=== PATIENT | male | born 1975 | race Asian ===

== ENCOUNTER 2019-05-16 02:01 | Emergency (ER) | payer SELFPAY | END 2019-05-16 02:54 | disposition left against medical advice (07) | LOC: ER 02:07 | DX: M79.89 Other specified soft tissue disorders (principal); Z53.21 Procedure and treatment not carried out due to patient leaving prior to being seen by health care provider ==

== ENCOUNTER 2023-02-28 05:26 | Inpatient (IN) | payer MEDICAID, OTHER ==
[~2023-02-28] VITALS: Ht 185.4 cm; Wt 96.5 kg
[2023-02-28] MEDS ORDERED: SODIUM CHLORIDE 0.9% 500 ML IV STA (05:40)
[2023-02-28] MEDS ORDERED: SODIUM CHLORIDE 0.9% 500 ML IV ONE (05:45)
[2023-02-28 06:05] VITALS: PULSE 120; RESP 30; O2SAT 95
[2023-02-28] MEDS ORDERED: ONDANSETRON HCL 4 MG/2 ML VIAL IV ONE (06:15)
[2023-02-28] MEDS ORDERED: MORPHINE SULFATE INJ 2 MG/ml SYRG IV ONE ×2 (06:15→11:45)
[2023-02-28 06:26] LABS: Basophils # (auto) 0 10 ^3/uL (0-0.2); Basophils % (auto) 0.2 % (0.0-2.0); Eosinophils # (auto) 0.1 10 ^3/uL (0-0.8); Eosinophils % (auto) 0.6 % (0.0-7.0); Hematocrit 38.9 % (41.0-53.0); Hemoglobin 13.1 g/dL (13.5-17.5); Lymphocytes # (auto) 1.5 10 ^3/uL (0.4-5.4); Lymphocytes % (auto) 12.2 % (10.0-50.0); Mean Corpuscular Hemoglobin 31.3 pg (28.0-32.0); Mean Corpuscular Hgb Conc. 33.6 g/dL (32.0-36.0); Mean Corpuscular Volume 93.2 fL (80.0-100.0); Monocytes # (auto) 0.6 10 ^3/uL (0-1.3); Neutrophils # (auto) 10.2 10 ^3/uL (1.6-8.6); Red Blood Cells 4.17 10^6/uL (4.5-5.90); Red Cell Distribution Width 12.6 % (11.8-14.3); White Blood Cell 12.4 10^3/uL (4.4-10.8)
[2023-02-28 06:37] LABS: INR 0.96 (0.9-1.15); Partial Thromboplastin Time 33.3 SEC (24.5-34.5); Prothrombin Time 10.1 sec (9.3-11.8)
[2023-02-28 06:45] LABS: Albumin 2.9 g/dL (3.4-5.0); Calcium 8.2 mg/dL (8.5-10.1); Magnesium 2.2 mg/dL (1.6-2.6); Potassium 4.4 mmol/L (3.5-5.1)
[2023-02-28 06:47] LABS: BUN/Creatinine Ratio 16.4 (10.0-20.0); Bilirubin, Total 0.4 mg/dL (0.2-1.0); Total Protein 7.1 g/dL (6.4-8.2)
[2023-02-28 07:30] VITALS: PULSE 116; RESP 21; O2SAT 99
[2023-02-28] MEDS ORDERED: ASPirin 81 mg TAB PO ONE (07:30)
[2023-02-28] MEDS ORDERED: SODIUM CHLORIDE 0.9% 1,000 ML IV ONE ×2 (07:30→09:15)
[2023-02-28] MEDS ORDERED: diphenhdrAMINE HCL 50 MG/1 ML VL IV ONE (08:00)
[2023-02-28] MEDS ORDERED: KETOROLAC TROMETH 30 MG/ML 1ML VIAL IV ONE (08:00)
[2023-02-28] MEDS ORDERED: IOHEXOL 350 MG/ML 100ML IJ ONE (08:04)
[2023-02-28 08:18] LABS: Urine Bacteria NONE SEEN /hpf (None Seen); Urine Blood TRACE /uL (Negative); Urine Clarity Clear (Clear); Urine Protein, UAD 2+ (Negative); Urine Specific Gravity 1.031 (1.001-1.035); Urine Urobilinogen Normal (Negative); Urine WBC 1 /hpf (0 - 3); Urine pH 5.5 (5.0-8.0)
[2023-02-28 08:20] LABS: Urine Color Yellow (Yellow)
[2023-02-28] MEDS ORDERED: PIPERACILLIN-TAZOB 3.375GM 100 ML IV ONE (09:15)
[2023-02-28] MEDS ORDERED: VANCOMYCIN 1GM/250ML 250 ML IV ONE (10:15)
[2023-02-28] MEDS ORDERED: InsuLIN REG 1unit/0.01ml Soln (100units/ml) IV ONE (11:30)
[2023-02-28 11:45] VITALS: PULSE 109; RESP 23; O2SAT 100
[2023-02-28 12:08] LABS: Base Excess -4.7 mmol/L (-2.0-2.0)
[2023-02-28] MEDS ORDERED: DEXTROSE (50%) 50ML SYRG IV PRN (13:45)
[2023-02-28] MEDS: SODIUM CHLORIDE 0.9% 1,000 ML IV SCH ×2 (13:45→23:31)
[2023-02-28] MEDS ORDERED: SODIUM CHLORIDE 0.9% 2,000 ML IV ONE (13:45)
[2023-02-28] MEDS ORDERED: VANCOMYCIN PER PHARMACY 0 MG IV SCH (13:45)
[2023-02-28 14:19] VITALS: BP 125/74; PULSE 65; RESP 18; TEMP 100.5; O2SAT 100
[2023-02-28 15:03] LABS: Sodium Urine 52 mmol/L (40-220)
[2023-02-28 15:06] LABS: Creatinine, Urine 77 mg/dL (30.0-125.0)
[2023-02-28] MEDS: InsuLIN REG 1unit/0.01ml Soln (100units/ml) SC SCH ×2 (17:18→22:33)
[2023-02-28] MEDS: ACCU-CHEK COMFORT CURVE STRIP VI SCH ×2 (17:20→22:28)
[2023-02-28] MEDS: HYDROmorphone HCL 2 MG/ML VL/or syr IV PRN ×2 (17:47→22:21)
[2023-02-28] MEDS: ONDANSETRON HCL 4 MG/2 ML VIAL IV PRN ×2 (17:47→22:19)
[2023-02-28 19:30] VITALS: PULSE 117; RESP 20; O2SAT 99
[2023-02-28 20:19] LABS: COVID19 ANTIGEN SOFIA FIA NEGATIVE (NEGATIVE)
[2023-02-28] MEDS: VANCOMYCIN 1GM/250ML 250 ML IV SCH (20:23)
[2023-02-28 23:55] VITALS: O2SAT 98
[2023-03-01] MEDS: ONDANSETRON HCL 4 MG/2 ML VIAL IV PRN ×3 (03:29→14:53)
[2023-03-01] MEDS: HYDROmorphone HCL 2 MG/ML VL/or syr IV PRN ×5 (03:29→22:24)
[2023-03-01 06:22] LABS: Basophils # (auto) 0 10 ^3/uL (0-0.2); Basophils % (auto) 0.2 % (0.0-2.0); Eosinophils # (auto) 0 10 ^3/uL (0-0.8); Hematocrit 35.3 % (41.0-53.0); Hemoglobin 11.7 g/dL (13.5-17.5); Lymphocytes # (auto) 1.1 10 ^3/uL (0.4-5.4); Lymphocytes % (auto) 5.9 % (10.0-50.0); Mean Corpuscular Hemoglobin 30.9 pg (28.0-32.0); Mean Corpuscular Hgb Conc. 33.2 g/dL (32.0-36.0); Monocytes # (auto) 1.3 10 ^3/uL (0-1.3); Monocytes % (auto) 7.1 % (0.0-12.0); Neutrophils # (auto) 16.1 10 ^3/uL (1.6-8.6); Neutrophils % (auto) 86.8 % (37.0-80.0); Red Cell Distribution Width 12.6 % (11.8-14.3); White Blood Cell 18.6 10^3/uL (4.4-10.8)
[2023-03-01 06:25] LABS: Potassium 4.3 mmol/L (3.5-5.1)
[2023-03-01] MEDS: SODIUM CHLORIDE 0.9% 1,000 ML IV SCH ×3 (06:25→22:23)
[2023-03-01] MEDS: VANCOMYCIN 1GM/250ML 250 ML IV SCH ×2 (06:25→16:47)
[2023-03-01 06:38] LABS: Albumin 2.5 g/dL (3.4-5.0); BUN/Creatinine Ratio 22.3 (10.0-20.0); Bilirubin, Total 0.7 mg/dL (0.2-1.0); Calcium 7.8 mg/dL (8.5-10.1); Total Protein 6.4 g/dL (6.4-8.2)
[2023-03-01] MEDS: ACCU-CHEK COMFORT CURVE STRIP VI SCH ×4 (06:54→22:23)
[2023-03-01] MEDS: InsuLIN REG 1unit/0.01ml Soln (100units/ml) SC SCH ×4 (06:58→22:53)
[2023-03-01 08:16] VITALS: PULSE 108; RESP 21; O2SAT 96
[2023-03-01] MEDS: levoFLOXacin 500MG 100 ML IV SCH (09:46)
[2023-03-01] MEDS: PANTOPRAZOLE 40 MG/10 ML VIAL INJ IV SCH (09:46)
[2023-03-01] MEDS: ENOXAPARIN SOD 40 MG/0.4 ML SYRINGE SC SCH (09:46)
[2023-03-01 18:51] VITALS: O2SAT 97
[2023-03-01 19:25] VITALS: PULSE 118; RESP 25; O2SAT 98
[2023-03-01 21:10] VITALS: BP 141/83; PULSE 120; RESP 21; RESP 22; TEMP 98.4; O2SAT 96
[2023-03-01 22:00] VITALS: BP 141/83; PULSE 120; RESP 22; TEMP 98.4; O2SAT 96
[2023-03-02] MEDS: VANCOMYCIN 1GM/250ML 250 ML IV SCH ×3 (02:47→22:00)
[2023-03-02 05:00] VITALS: BP 144/73; PULSE 109; RESP 20; TEMP 98.6; O2SAT 97
[2023-03-02] MEDS: HYDROmorphone HCL 2 MG/ML VL/or syr IV PRN ×4 (06:26→23:36)
[2023-03-02] MEDS: ACCU-CHEK COMFORT CURVE STRIP VI SCH ×4 (06:39→22:15)
[2023-03-02] MEDS: SODIUM CHLORIDE 0.9% 1,000 ML IV SCH ×2 (06:53→16:03)
[2023-03-02] MEDS: InsuLIN REG 1unit/0.01ml Soln (100units/ml) SC SCH ×4 (06:58→22:00)
[2023-03-02 07:06] LABS: Basophils # (auto) 0 10 ^3/uL (0-0.2); Basophils % (auto) 0.2 % (0.0-2.0); Eosinophils # (auto) 0 10 ^3/uL (0-0.8); Eosinophils % (auto) 0.2 % (0.0-7.0); Hematocrit 34.3 % (41.0-53.0); Hemoglobin 11.4 g/dL (13.5-17.5); Lymphocytes # (auto) 0.8 10 ^3/uL (0.4-5.4); Lymphocytes % (auto) 4.3 % (10.0-50.0); Mean Corpuscular Hemoglobin 30.7 pg (28.0-32.0); Mean Corpuscular Hgb Conc. 33.3 g/dL (32.0-36.0); Mean Corpuscular Volume 92.2 fL (80.0-100.0); Monocytes # (auto) 1.1 10 ^3/uL (0-1.3); Monocytes % (auto) 6.1 % (0.0-12.0); Neutrophils # (auto) 16.7 10 ^3/uL (1.6-8.6); Neutrophils % (auto) 89.2 % (37.0-80.0); Nucleated Red Blood Cells % 0.1 %; Red Blood Cells 3.72 10^6/uL (4.5-5.90); Red Cell Distribution Width 12.7 % (11.8-14.3); White Blood Cell 18.8 10^3/uL (4.4-10.8)
[2023-03-02 07:36] LABS: Potassium 3.9 mmol/L (3.5-5.1)
[2023-03-02 07:42] LABS: BUN/Creatinine Ratio 24.1 (10.0-20.0); Calcium 8.4 mg/dL (8.5-10.1)
[2023-03-02 08:00] VITALS: BP 137/72; PULSE 107; RESP 19; TEMP 98.8; O2SAT 95
[2023-03-02] MEDS: levoFLOXacin 500MG 100 ML IV SCH (09:10)
[2023-03-02] MEDS: PANTOPRAZOLE 40 MG/10 ML VIAL INJ IV SCH (09:15)
[2023-03-02] MEDS: ENOXAPARIN SOD 40 MG/0.4 ML SYRINGE SC SCH (09:17)
[2023-03-02] MEDS ORDERED: AMPICILLIN & SULBACTAM SODIUM 3 GM in SODIUM CHL 0.9% 100 ML IV STA (11:50)
[2023-03-02 12:00] VITALS: BP 140/65; PULSE 109; RESP 22; TEMP 98.5; O2SAT 96
[2023-03-02] MEDS: AMPICILLIN & SULBACTAM SODIUM 3 GM in SODIUM CHL 0.9% 100 ML IV SCH ×2 (15:58→20:00)
[2023-03-02 16:00] VITALS: BP 94/76; PULSE 112; RESP 21; TEMP 99.2; O2SAT 95
[2023-03-02 20:00] VITALS: BP 146/80; PULSE 115; PULSE 116; RESP 21; TEMP 98.8; O2SAT 94
[2023-03-02 22:00] VITALS: BP 139/67; PULSE 122; RESP 18; TEMP 99; O2SAT 94
[2023-03-03] VITALS (8 sets, daily range): BP systolic 123–167; BP diastolic 76–84; PULSE 97–116; RESP 16–24; TEMP 98.2–99.5; O2SAT 92–98
[2023-03-03] MEDS: AMPICILLIN & SULBACTAM SODIUM 3 GM in SODIUM CHL 0.9% 100 ML IV SCH ×4 (01:45→21:19)
[2023-03-03] MEDS: SODIUM CHLORIDE 0.9% 1,000 ML IV SCH ×3 (01:45→13:38)
[2023-03-03] MEDS: HYDROmorphone HCL 2 MG/ML VL/or syr IV PRN ×4 (03:56→22:47)
[2023-03-03 06:01] LABS: Basophils # (auto) 0 10 ^3/uL (0-0.2); Basophils % (auto) 0.2 % (0.0-2.0); Eosinophils # (auto) 0 10 ^3/uL (0-0.8); Eosinophils % (auto) 0.1 % (0.0-7.0); Hematocrit 33.8 % (41.0-53.0); Hemoglobin 11.3 g/dL (13.5-17.5); Lymphocytes # (auto) 0.7 10 ^3/uL (0.4-5.4); Lymphocytes % (auto) 3.7 % (10.0-50.0); Mean Corpuscular Hemoglobin 30.6 pg (28.0-32.0); Mean Corpuscular Hgb Conc. 33.5 g/dL (32.0-36.0); Mean Corpuscular Volume 91.6 fL (80.0-100.0); Monocytes # (auto) 1.2 10 ^3/uL (0-1.3); Monocytes % (auto) 6.5 % (0.0-12.0); Neutrophils # (auto) 16.1 10 ^3/uL (1.6-8.6); Neutrophils % (auto) 89.5 % (37.0-80.0); Red Blood Cells 3.69 10^6/uL (4.5-5.90); Red Cell Distribution Width 12.6 % (11.8-14.3)
[2023-03-03] MEDS: ACCU-CHEK COMFORT CURVE STRIP VI SCH ×3 (06:23→22:00)
[2023-03-03] MEDS: InsuLIN REG 1unit/0.01ml Soln (100units/ml) SC SCH ×3 (06:26→21:50)
[2023-03-03 06:32] LABS: BUN/Creatinine Ratio 8.5 (10.0-20.0); Potassium 3.8 mmol/L (3.5-5.1)
[2023-03-03] MEDS: VANCOMYCIN 1GM/250ML 250 ML IV SCH ×3 (07:26→21:17)
[2023-03-03 09:07] LABS: QuantiFERON-TB Gold Plus Negative (Negative)
[2023-03-03] MEDS: ENOXAPARIN SOD 40 MG/0.4 ML SYRINGE SC SCH (09:16)
[2023-03-04] VITALS (8 sets, daily range): BP systolic 122–154; BP diastolic 53–87; PULSE 79–106; RESP 17–20; TEMP 98.3–99.3; O2SAT 92–97
[2023-03-04] MEDS: AMPICILLIN & SULBACTAM SODIUM 3 GM in SODIUM CHL 0.9% 100 ML IV SCH ×4 (00:35→19:01)
[2023-03-04] MEDS: SODIUM CHLORIDE 0.9% 1,000 ML IV SCH ×3 (01:05→16:57)
[2023-03-04] MEDS: VANCOMYCIN 1GM/250ML 250 ML IV SCH ×3 (04:26→21:20)
[2023-03-04] MEDS: HYDROmorphone HCL 2 MG/ML VL/or syr IV PRN ×4 (04:26→21:20)
[2023-03-04] MEDS: ACCU-CHEK COMFORT CURVE STRIP VI SCH ×4 (06:34→21:30)
[2023-03-04] MEDS: InsuLIN REG 1unit/0.01ml Soln (100units/ml) SC SCH ×4 (06:34→21:31)
[2023-03-04 06:44] LABS: Calcium 8.1 mg/dL (8.5-10.1); Potassium 3.6 mmol/L (3.5-5.1)
[2023-03-04 06:45] LABS: BUN/Creatinine Ratio 21.2 (10.0-20.0)
[2023-03-04 06:50] LABS: Basophils # (auto) 0 10 ^3/uL (0-0.2); Basophils % (auto) 0.2 % (0.0-2.0); Eosinophils # (auto) 0 10 ^3/uL (0-0.8); Eosinophils % (auto) 0.2 % (0.0-7.0); Hematocrit 33.5 % (41.0-53.0); Hemoglobin 11.2 g/dL (13.5-17.5); Lymphocytes # (auto) 0.8 10 ^3/uL (0.4-5.4); Lymphocytes % (auto) 5.1 % (10.0-50.0); Mean Corpuscular Hgb Conc. 33.4 g/dL (32.0-36.0); Mean Corpuscular Volume 92.6 fL (80.0-100.0); Monocytes # (auto) 1.6 10 ^3/uL (0-1.3); Monocytes % (auto) 10.4 % (0.0-12.0); Neutrophils # (auto) 13.2 10 ^3/uL (1.6-8.6); Neutrophils % (auto) 84.1 % (37.0-80.0); Red Blood Cells 3.61 10^6/uL (4.5-5.90); Red Cell Distribution Width 12.8 % (11.8-14.3); White Blood Cell 15.8 10^3/uL (4.4-10.8)
[2023-03-04] MEDS: ENOXAPARIN SOD 40 MG/0.4 ML SYRINGE SC SCH (10:46)
[2023-03-05] VITALS (7 sets, daily range): BP systolic 112–146; BP diastolic 63–79; PULSE 91–112; RESP 17–19; TEMP 98.4–98.9; O2SAT 96–100
[2023-03-05] MEDS: AMPICILLIN & SULBACTAM SODIUM 3 GM in SODIUM CHL 0.9% 100 ML IV SCH ×4 (00:16→18:44)
[2023-03-05] MEDS: HYDROmorphone HCL 2 MG/ML VL/or syr IV PRN ×5 (01:40→21:08)
[2023-03-05] MEDS: VANCOMYCIN 1GM/250ML 250 ML IV SCH ×3 (05:00→23:26)
[2023-03-05 05:03] LABS: Basophils # (auto) 0.1 10 ^3/uL (0-0.2); Basophils % (auto) 0.4 % (0.0-2.0); Eosinophils # (auto) 0.1 10 ^3/uL (0-0.8); Eosinophils % (auto) 0.5 % (0.0-7.0); Hematocrit 34.2 % (41.0-53.0); Hemoglobin 11.3 g/dL (13.5-17.5); Lymphocytes # (auto) 1.1 10 ^3/uL (0.4-5.4); Lymphocytes % (auto) 6.6 % (10.0-50.0); Mean Corpuscular Hemoglobin 30.2 pg (28.0-32.0); Mean Corpuscular Volume 91.5 fL (80.0-100.0); Monocytes # (auto) 1.5 10 ^3/uL (0-1.3); Monocytes % (auto) 9.3 % (0.0-12.0); Neutrophils # (auto) 13.4 10 ^3/uL (1.6-8.6); Neutrophils % (auto) 83.2 % (37.0-80.0); Red Blood Cells 3.74 10^6/uL (4.5-5.90); Red Cell Distribution Width 12.9 % (11.8-14.3); White Blood Cell 16.1 10^3/uL (4.4-10.8)
[2023-03-05 05:13] LABS: Calcium 7.8 mg/dL (8.5-10.1); Potassium 3.9 mmol/L (3.5-5.1)
[2023-03-05 05:17] LABS: BUN/Creatinine Ratio 19.8 (10.0-20.0)
[2023-03-05] MEDS: SODIUM CHLORIDE 0.9% 1,000 ML IV SCH ×3 (05:40→18:44)
[2023-03-05] MEDS: InsuLIN REG 1unit/0.01ml Soln (100units/ml) SC SCH ×4 (06:20→21:08)
[2023-03-05] MEDS: ACCU-CHEK COMFORT CURVE STRIP VI SCH ×4 (06:51→21:09)
[2023-03-05] MEDS: ENOXAPARIN SOD 40 MG/0.4 ML SYRINGE SC SCH (11:43)
[2023-03-06] VITALS (7 sets, daily range): BP systolic 138–147; BP diastolic 75–81; PULSE 65–112; RESP 16–20; TEMP 36.9; O2SAT 93–100
[2023-03-06] MEDS: AMPICILLIN & SULBACTAM SODIUM 3 GM in SODIUM CHL 0.9% 100 ML IV SCH ×4 (00:35→18:21)
[2023-03-06] MEDS: HYDROmorphone HCL 2 MG/ML VL/or syr IV PRN ×4 (00:42→20:18)
[2023-03-06 05:11] LABS: Basophils # (auto) 0 10 ^3/uL (0-0.2); Basophils % (auto) 0.1 % (0.0-2.0); Eosinophils # (auto) 0.1 10 ^3/uL (0-0.8); Eosinophils % (auto) 0.7 % (0.0-7.0); Hematocrit 33.2 % (41.0-53.0); Hemoglobin 11.1 g/dL (13.5-17.5); Lymphocytes # (auto) 1.2 10 ^3/uL (0.4-5.4); Lymphocytes % (auto) 7.6 % (10.0-50.0); Mean Corpuscular Hemoglobin 30.7 pg (28.0-32.0); Mean Corpuscular Hgb Conc. 33.4 g/dL (32.0-36.0); Monocytes # (auto) 1.7 10 ^3/uL (0-1.3); Monocytes % (auto) 10.9 % (0.0-12.0); Neutrophils # (auto) 12.3 10 ^3/uL (1.6-8.6); Neutrophils % (auto) 80.7 % (37.0-80.0); Nucleated Red Blood Cells % 0.1 %; Red Blood Cells 3.61 10^6/uL (4.5-5.90); Red Cell Distribution Width 12.9 % (11.8-14.3); White Blood Cell 15.3 10^3/uL (4.4-10.8)
[2023-03-06 05:39] LABS: Potassium 3.5 mmol/L (3.5-5.1)
[2023-03-06 05:41] LABS: BUN/Creatinine Ratio 16.5 (10.0-20.0); Calcium 8.4 mg/dL (8.5-10.1)
[2023-03-06] MEDS: SODIUM CHLORIDE 0.9% 1,000 ML IV SCH ×2 (06:16→09:41)
[2023-03-06] MEDS: ACCU-CHEK COMFORT CURVE STRIP VI SCH ×4 (06:17→21:47)
[2023-03-06] MEDS: InsuLIN REG 1unit/0.01ml Soln (100units/ml) SC SCH ×4 (06:18→21:45)
[2023-03-06] MEDS: ENOXAPARIN SOD 40 MG/0.4 ML SYRINGE SC SCH (09:34)
[2023-03-06] MEDS: VANCOMYCIN 1GM/250ML 250 ML IV SCH ×2 (09:38→20:06)
[2023-03-06] MEDS ORDERED: LIDOCAINE 2%HCL (LOCAL ANESTH.) INJ 10ml MDV ONE (11:19)
[2023-03-06 19:48] LABS: Body Fluid Polymorphonuclear 50 % (0-25); Body Fluid Red Blood Cells 432.5 CUMM (0-2000); Body Fluid White Blood Cells 400 CUMM (0-200); Body Fluid pH 8
[2023-03-06] MEDS: MELATONIN 5 MG TAB PO SCH (21:44)
[2023-03-07] VITALS (9 sets, daily range): BP systolic 118–148; BP diastolic 53–83; PULSE 62–104; RESP 14–24; TEMP 36.8–36.9; O2SAT 93–97
[2023-03-07] MEDS: SODIUM CHLORIDE 0.9% 1,000 ML IV SCH ×5 (00:11→21:59)
[2023-03-07] MEDS: AMPICILLIN & SULBACTAM SODIUM 3 GM in SODIUM CHL 0.9% 100 ML IV SCH ×5 (00:30→23:57)
[2023-03-07] MEDS: HYDROmorphone HCL 2 MG/ML VL/or syr IV PRN ×3 (00:31→23:12)
[2023-03-07 05:10] LABS: Eosinophils # (auto) 0.1 10 ^3/uL (0-0.8); Lymphocytes # (auto) 1.2 10 ^3/uL (0.4-5.4); Monocytes # (auto) 1.2 10 ^3/uL (0-1.3)
[2023-03-07 05:13] LABS: Basophils # (auto) 0 10 ^3/uL (0-0.2); Basophils % (auto) 0.3 % (0.0-2.0); Eosinophils % (auto) 1.1 % (0.0-7.0); Hematocrit 32.4 % (41.0-53.0); Hemoglobin 10.9 g/dL (13.5-17.5); Mean Corpuscular Hemoglobin 30.2 pg (28.0-32.0); Mean Corpuscular Hgb Conc. 33.5 g/dL (32.0-36.0); Mean Corpuscular Volume 90.3 fL (80.0-100.0); Monocytes % (auto) 10.6 % (0.0-12.0); Neutrophils # (auto) 8.6 10 ^3/uL (1.6-8.6); Red Blood Cells 3.59 10^6/uL (4.5-5.90); Red Cell Distribution Width 12.7 % (11.8-14.3); White Blood Cell 11.1 10^3/uL (4.4-10.8)
[2023-03-07 05:43] LABS: Calcium 8.3 mg/dL (8.5-10.1); Potassium 3.3 mmol/L (3.5-5.1)
[2023-03-07 05:45] LABS: BUN/Creatinine Ratio 14.6 (10.0-20.0)
[2023-03-07] MEDS: VANCOMYCIN 1GM/250ML 250 ML IV SCH ×2 (06:00→16:00)
[2023-03-07] MEDS: ACCU-CHEK COMFORT CURVE STRIP VI SCH ×4 (06:23→21:58)
[2023-03-07] MEDS: InsuLIN REG 1unit/0.01ml Soln (100units/ml) SC SCH ×4 (06:23→21:59)
[2023-03-07] MEDS ORDERED: POTASSIUM EFFERVESENT TAB 25 MEQ GT ONE (09:15)
[2023-03-07] MEDS: ENOXAPARIN SOD 40 MG/0.4 ML SYRINGE SC SCH (10:07)
[2023-03-07 12:07] LABS: Protein, Body Fluid 4.4 g/dL (.)
[2023-03-07] MEDS: MELATONIN 5 MG TAB PO SCH (21:40)
[2023-03-08] MEDS: VANCOMYCIN 1GM/250ML 250 ML IV SCH ×3 (02:01→21:50)
[2023-03-08] MEDS: HYDROmorphone HCL 2 MG/ML VL/or syr IV PRN ×3 (04:35→20:02)
[2023-03-08 05:00] VITALS: BP 152/91; PULSE 95; RESP 18; TEMP 98.6; O2SAT 97
[2023-03-08 05:56] LABS: Eosinophils # (auto) 0.1 10 ^3/uL (0-0.8); Hemoglobin 10.7 g/dL (13.5-17.5); Lymphocytes # (auto) 1.4 10 ^3/uL (0.4-5.4)
[2023-03-08] MEDS: AMPICILLIN & SULBACTAM SODIUM 3 GM in SODIUM CHL 0.9% 100 ML IV SCH ×3 (05:58→18:27)
[2023-03-08 05:59] LABS: Basophils # (auto) 0 10 ^3/uL (0-0.2); Basophils % (auto) 0.3 % (0.0-2.0); Eosinophils % (auto) 1.2 % (0.0-7.0); Hematocrit 32.2 % (41.0-53.0); Lymphocytes % (auto) 12.6 % (10.0-50.0); Mean Corpuscular Hemoglobin 30.3 pg (28.0-32.0); Mean Corpuscular Hgb Conc. 33.4 g/dL (32.0-36.0); Mean Corpuscular Volume 90.8 fL (80.0-100.0); Monocytes % (auto) 9.3 % (0.0-12.0); Neutrophils # (auto) 8.6 10 ^3/uL (1.6-8.6); Neutrophils % (auto) 76.6 % (37.0-80.0); Red Blood Cells 3.54 10^6/uL (4.5-5.90); Red Cell Distribution Width 12.8 % (11.8-14.3); White Blood Cell 11.3 10^3/uL (4.4-10.8)
[2023-03-08] MEDS: InsuLIN REG 1unit/0.01ml Soln (100units/ml) SC SCH ×4 (06:21→21:53)
[2023-03-08] MEDS: ACCU-CHEK COMFORT CURVE STRIP VI SCH ×4 (06:21→21:51)
[2023-03-08 06:31] LABS: BUN/Creatinine Ratio 11.5 (10.0-20.0); Calcium 8.4 mg/dL (8.5-10.1); Potassium 3.3 mmol/L (3.5-5.1)
[2023-03-08] MEDS ORDERED: POTASSIUM EFFERVESENT TAB 25 MEQ PO ONE (07:30)
[2023-03-08 08:00] VITALS: PULSE 99
[2023-03-08 09:00] VITALS: BP 151/72; PULSE 95; RESP 22; TEMP 98.4; O2SAT 97
[2023-03-08] MEDS: ENOXAPARIN SOD 40 MG/0.4 ML SYRINGE SC SCH (09:56)
[2023-03-08 13:00] VITALS: BP 155/81; PULSE 98; RESP 18; TEMP 98.5; O2SAT 95
[2023-03-08] MEDS: SODIUM CHLORIDE 0.9% 1,000 ML IV SCH ×2 (14:33→21:54)
[2023-03-08 17:00] VITALS: BP 138/71; PULSE 101; RESP 20; TEMP 98.6; O2SAT 98
[2023-03-08 20:00] VITALS: BP 157/83; PULSE 101; PULSE 97; RESP 18; TEMP 98.2; O2SAT 98
[2023-03-08] MEDS: MELATONIN 5 MG TAB PO SCH (21:51)
[2023-03-09] VITALS (7 sets, daily range): BP systolic 129–155; BP diastolic 65–82; PULSE 79–104; RESP 17–19; TEMP 97.9–98.7; O2SAT 93–99
[2023-03-09] MEDS: AMPICILLIN & SULBACTAM SODIUM 3 GM in SODIUM CHL 0.9% 100 ML IV SCH ×4 (01:03→19:41)
[2023-03-09] MEDS: HYDROmorphone HCL 2 MG/ML VL/or syr IV PRN ×2 (01:14→05:46)
[2023-03-09] MEDS: SODIUM CHLORIDE 0.9% 1,000 ML IV SCH (05:51)
[2023-03-09] MEDS: InsuLIN REG 1unit/0.01ml Soln (100units/ml) SC SCH ×4 (05:54→22:11)
[2023-03-09] MEDS: ACCU-CHEK COMFORT CURVE STRIP VI SCH ×4 (05:54→22:06)
[2023-03-09 06:21] LABS: Basophils # (auto) 0.1 10 ^3/uL (0-0.2); Basophils % (auto) 0.5 % (0.0-2.0); Eosinophils # (auto) 0.1 10 ^3/uL (0-0.8); Eosinophils % (auto) 0.9 % (0.0-7.0); Hematocrit 32.6 % (41.0-53.0); Hemoglobin 10.9 g/dL (13.5-17.5); Lymphocytes # (auto) 1.6 10 ^3/uL (0.4-5.4); Lymphocytes % (auto) 12.7 % (10.0-50.0); Mean Corpuscular Hemoglobin 30.3 pg (28.0-32.0); Mean Corpuscular Hgb Conc. 33.5 g/dL (32.0-36.0); Mean Corpuscular Volume 90.5 fL (80.0-100.0); Monocytes # (auto) 0.9 10 ^3/uL (0-1.3); Monocytes % (auto) 7.3 % (0.0-12.0); Neutrophils # (auto) 9.8 10 ^3/uL (1.6-8.6); Neutrophils % (auto) 78.6 % (37.0-80.0); Red Blood Cells 3.61 10^6/uL (4.5-5.90); Red Cell Distribution Width 12.7 % (11.8-14.3); White Blood Cell 12.5 10^3/uL (4.4-10.8)
[2023-03-09 06:30] LABS: Potassium 3.4 mmol/L (3.5-5.1)
[2023-03-09 06:38] LABS: BUN/Creatinine Ratio 10.1 (10.0-20.0); Calcium 8.2 mg/dL (8.5-10.1)
[2023-03-09] MEDS ORDERED: FUROSEMIDE 20 MG/2 ML VIAL IV ONE (09:45)
[2023-03-09] MEDS: VANCOMYCIN 1GM/250ML 250 ML IV SCH (10:07)
[2023-03-09] MEDS: ENOXAPARIN SOD 40 MG/0.4 ML SYRINGE SC SCH (10:08)
[2023-03-09] MEDS: HYDROcodone-ACET 5/325MG TAB PO PRN ×3 (10:09→22:12)
[2023-03-09] MEDS: MELATONIN 5 MG TAB PO SCH (22:06)
[2023-03-10] MEDS: AMPICILLIN & SULBACTAM SODIUM 3 GM in SODIUM CHL 0.9% 100 ML IV SCH ×4 (01:10→21:36)
[2023-03-10 05:01] VITALS: BP 140/69; PULSE 89; RESP 19; TEMP 98.3; O2SAT 99
[2023-03-10] MEDS: HYDROcodone-ACET 5/325MG TAB PO PRN ×3 (05:11→22:51)
[2023-03-10 05:44] LABS: Basophils # (auto) 0 10 ^3/uL (0-0.2); Eosinophils # (auto) 0.1 10 ^3/uL (0-0.8); Eosinophils % (auto) 1.1 % (0.0-7.0); Hemoglobin 10.7 g/dL (13.5-17.5); Red Cell Distribution Width 12.7 % (11.8-14.3)
[2023-03-10 05:46] LABS: Basophils % (auto) 0.4 % (0.0-2.0); Hematocrit 31.6 % (41.0-53.0); Lymphocytes # (auto) 1.4 10 ^3/uL (0.4-5.4); Lymphocytes % (auto) 11.9 % (10.0-50.0); Mean Corpuscular Hemoglobin 30.5 pg (28.0-32.0); Mean Corpuscular Hgb Conc. 33.8 g/dL (32.0-36.0); Mean Corpuscular Volume 90.5 fL (80.0-100.0); Monocytes % (auto) 8.3 % (0.0-12.0); Neutrophils # (auto) 9.3 10 ^3/uL (1.6-8.6); Neutrophils % (auto) 78.3 % (37.0-80.0); Nucleated Red Blood Cells % 0.2 %; Red Blood Cells 3.49 10^6/uL (4.5-5.90); White Blood Cell 11.8 10^3/uL (4.4-10.8)
[2023-03-10 05:55] LABS: Potassium 3.4 mmol/L (3.5-5.1)
[2023-03-10] MEDS: InsuLIN REG 1unit/0.01ml Soln (100units/ml) SC SCH ×4 (05:55→22:48)
[2023-03-10] MEDS: ACCU-CHEK COMFORT CURVE STRIP VI SCH ×3 (05:55→16:52)
[2023-03-10 06:05] LABS: BUN/Creatinine Ratio 11.5 (10.0-20.0); Calcium 8.1 mg/dL (8.5-10.1)
[2023-03-10 08:10] VITALS: PULSE 92
[2023-03-10 09:00] VITALS: BP 156/77; PULSE 93; RESP 15; TEMP 97.9; O2SAT 97
[2023-03-10] MEDS: FUROSEMIDE 20 MG/2 ML VIAL IV SCH (10:56)
[2023-03-10] MEDS: ENOXAPARIN SOD 40 MG/0.4 ML SYRINGE SC SCH (10:57)
[2023-03-10 11:29] LABS: Base Excess 3.6 mmol/L (-2.0-2.0)
[2023-03-10 17:00] VITALS: BP 165/77; PULSE 95; RESP 17; TEMP 97.8; O2SAT 99
[2023-03-10 20:00] VITALS: BP 141/60; PULSE 95; RESP 18; TEMP 99.5; O2SAT 96
[2023-03-10] MEDS: MELATONIN 5 MG TAB PO SCH ×2 (21:37→22:51)
[2023-03-10 22:00] VITALS: BP 141/60; PULSE 95; RESP 18; TEMP 99.5; O2SAT 96
[2023-03-10] MEDS: DOCUSATE SOD 100 MG CAP PO PRN (22:51)
[2023-03-11] VITALS (7 sets, daily range): BP systolic 125–154; BP diastolic 47–76; PULSE 60–101; RESP 16–19; TEMP 97.8–98.8; O2SAT 91–100
[2023-03-11] MEDS: ACCU-CHEK COMFORT CURVE STRIP VI SCH ×4 (00:40→17:00)
[2023-03-11] MEDS: AMPICILLIN & SULBACTAM SODIUM 3 GM in SODIUM CHL 0.9% 100 ML IV SCH ×4 (03:24→21:35)
[2023-03-11] MEDS: InsuLIN REG 1unit/0.01ml Soln (100units/ml) SC SCH ×4 (07:04→23:31)
[2023-03-11] MEDS: ENOXAPARIN SOD 40 MG/0.4 ML SYRINGE SC SCH (09:58)
[2023-03-11] MEDS: FUROSEMIDE 20 MG/2 ML VIAL IV SCH (09:58)
[2023-03-11 17:06] LABS: Aspergillus flavus Negative (Neg:<1:1); Aspergillus fumigatus Negative (Neg:<1:1); Aspergillus niger Negative (Neg:<1:1)
[2023-03-11] MEDS: HYDROcodone-ACET 5/325MG TAB PO PRN (17:41)
[2023-03-11] MEDS: MELATONIN 5 MG TAB PO SCH (23:35)
[2023-03-12] VITALS (8 sets, daily range): BP systolic 131–154; BP diastolic 66–80; PULSE 79–101; RESP 17–19; TEMP 98.3–99; O2SAT 95–99
[2023-03-12] MEDS: ACCU-CHEK COMFORT CURVE STRIP VI SCH ×5 (00:25→20:51)
[2023-03-12] MEDS: HYDROcodone-ACET 5/325MG TAB PO PRN ×2 (00:28→20:13)
[2023-03-12] MEDS: AMPICILLIN & SULBACTAM SODIUM 3 GM in SODIUM CHL 0.9% 100 ML IV SCH ×4 (02:51→18:31)
[2023-03-12 04:55] LABS: Urine Bacteria FEW /hpf (None Seen); Urine Blood Negative /uL (Negative); Urine Clarity Clear (Clear); Urine Color Yellow (Yellow); Urine Protein, UAD 1+ (Negative); Urine Specific Gravity 1.016 (1.001-1.035); Urine Urobilinogen Normal (Negative); Urine WBC <1 /hpf (0 - 3)
[2023-03-12 05:42] LABS: INR 1.11 (0.9-1.15); Partial Thromboplastin Time 36.9 SEC (24.5-34.5); Prothrombin Time 11.6 sec (9.3-11.8)
[2023-03-12 05:46] LABS: Calcium 7.9 mg/dL (8.5-10.1); Potassium 3.3 mmol/L (3.5-5.1)
[2023-03-12 05:52] LABS: Albumin 1.8 g/dL (3.4-5.0); BUN/Creatinine Ratio 9.3 (10.0-20.0); Bilirubin, Total 0.2 mg/dL (0.2-1.0); Total Protein 6.3 g/dL (6.4-8.2)
[2023-03-12] MEDS: InsuLIN REG 1unit/0.01ml Soln (100units/ml) SC SCH ×4 (07:00→20:52)
[2023-03-12] MEDS ORDERED: NALOXONE HCL 0.4 MG/ML VIAL ONE (08:02)
[2023-03-12] MEDS ORDERED: FLUMAZENIL 0.1 MG/ML INJ 10ML MDV IV ONE (08:02)
[2023-03-12] MEDS ORDERED: LIDOCAINE 2%HCL (LOCAL ANESTH.) INJ 20ML MDV ONE (08:03)
[2023-03-12] MEDS ORDERED: SODIUM CHLORIDE LOCK 10 ML ONE (08:03)
[2023-03-12] MEDS ORDERED: GLYCOPYRROLATE 0.2 MG/ML 1ML VIAL ONE (08:04)
[2023-03-12] MEDS ORDERED: diphenhdrAMINE HCL 50 MG/1 ML VL ONE (08:05)
[2023-03-12] MEDS ORDERED: EPINEPHrine HCL 1 MG/1 ML AMP ONE (08:21)
[2023-03-12] MEDS ORDERED: LIDOCAINE VISCOUS 2% 15ML UD ONE (08:27)
[2023-03-12] MEDS ORDERED: LIDOCAINE HCL 2 % INJ 2ML MPF NEB ONE (09:15)
[2023-03-12] MEDS: fentaNYL CITRATE 100 MCG/2 ML VL ONE ×3 (10:24→10:27)
[2023-03-12] MEDS: MIDAZOLAM HCL 5 MG/ML-1ML VIAL ONE ×3 (10:24→10:27)
[2023-03-12] MEDS: FUROSEMIDE 20 MG/2 ML VIAL IV SCH (14:33)
[2023-03-12] MEDS: MELATONIN 5 MG TAB PO SCH (20:53)
[2023-03-13] VITALS (7 sets, daily range): BP systolic 130–158; BP diastolic 64–82; PULSE 80–100; RESP 16–19; TEMP 97.9–98.6; O2SAT 96–100
[2023-03-13] MEDS: AMPICILLIN & SULBACTAM SODIUM 3 GM in SODIUM CHL 0.9% 100 ML IV SCH ×4 (02:04→18:30)
[2023-03-13] MEDS: InsuLIN REG 1unit/0.01ml Soln (100units/ml) SC SCH ×4 (06:13→21:01)
[2023-03-13] MEDS: ACCU-CHEK COMFORT CURVE STRIP VI SCH ×4 (06:17→21:07)
[2023-03-13] MEDS: HYDROcodone-ACET 5/325MG TAB PO PRN ×2 (06:17→20:32)
[2023-03-13] MEDS: FUROSEMIDE 20 MG/2 ML VIAL IV SCH (10:02)
[2023-03-13] MEDS ORDERED: hydrALAZINE HCL 20 MG/ML VL IV PRN (17:45)
[2023-03-13] MEDS: MELATONIN 5 MG TAB PO SCH (21:07)
[2023-03-14] VITALS (8 sets, daily range): BP systolic 95–153; BP diastolic 59–79; PULSE 80–108; RESP 17–22; TEMP 83–99.9; O2SAT 96–98
[2023-03-14] MEDS: AMPICILLIN & SULBACTAM SODIUM 3 GM in SODIUM CHL 0.9% 100 ML IV SCH ×4 (00:58→17:56)
[2023-03-14] MEDS: InsuLIN REG 1unit/0.01ml Soln (100units/ml) SC SCH ×4 (06:06→22:08)
[2023-03-14] MEDS: ACCU-CHEK COMFORT CURVE STRIP VI SCH ×4 (06:06→23:55)
[2023-03-14] MEDS: HYDROcodone-ACET 5/325MG TAB PO PRN ×3 (06:07→23:54)
[2023-03-14] MEDS: FUROSEMIDE 20 MG/2 ML VIAL IV SCH (11:12)
[2023-03-14] MEDS: MELATONIN 5 MG TAB PO SCH (23:54)
[2023-03-15] VITALS (8 sets, daily range): BP systolic 133–159; BP diastolic 68–83; PULSE 83–95; RESP 16–22; TEMP 98.2–98.9; O2SAT 95–100
[2023-03-15] MEDS: AMPICILLIN & SULBACTAM SODIUM 3 GM in SODIUM CHL 0.9% 100 ML IV SCH ×4 (00:30→18:33)
[2023-03-15] MEDS: HYDROcodone-ACET 5/325MG TAB PO PRN ×2 (06:07→21:21)
[2023-03-15] MEDS: InsuLIN REG 1unit/0.01ml Soln (100units/ml) SC SCH ×4 (06:15→21:28)
[2023-03-15] MEDS: ACCU-CHEK COMFORT CURVE STRIP VI SCH ×4 (06:18→21:33)
[2023-03-15] MEDS: FUROSEMIDE 20 MG/2 ML VIAL IV SCH (09:13)
[2023-03-15] MEDS: MELATONIN 5 MG TAB PO SCH (21:21)
[2023-03-15] MEDS: Pro-Stat SF 30ml Vanilla PO SCH (22:00)
[2023-03-16] MEDS: AMPICILLIN & SULBACTAM SODIUM 3 GM in SODIUM CHL 0.9% 100 ML IV SCH ×4 (00:34→19:00)
[2023-03-16 05:00] VITALS: BP 132/63; PULSE 85; RESP 18; TEMP 98.5; O2SAT 97
[2023-03-16] MEDS: HYDROcodone-ACET 5/325MG TAB PO PRN ×2 (05:19→21:56)
[2023-03-16] MEDS: ACCU-CHEK COMFORT CURVE STRIP VI SCH ×4 (06:25→22:10)
[2023-03-16] MEDS: InsuLIN REG 1unit/0.01ml Soln (100units/ml) SC SCH ×4 (06:25→21:57)
[2023-03-16 08:00] VITALS: PULSE 80; RESP 18; O2SAT 97
[2023-03-16 09:00] VITALS: BP 144/78; PULSE 85; RESP 20; TEMP 98.2; O2SAT 98
[2023-03-16] MEDS: Pro-Stat SF 30ml Vanilla PO SCH ×2 (10:00→22:10)
[2023-03-16] MEDS: FUROSEMIDE 20 MG/2 ML VIAL IV SCH (10:49)
[2023-03-16 13:04] VITALS: BP 133/66; PULSE 90; RESP 18; TEMP 97.9; O2SAT 97
[2023-03-16 20:00] VITALS: PULSE 82
[2023-03-16] MEDS: MELATONIN 5 MG TAB PO SCH (21:56)
[2023-03-16 22:00] VITALS: BP 141/72; PULSE 93; RESP 18; TEMP 98.3; O2SAT 97
[2023-03-17] VITALS (7 sets, daily range): BP systolic 132–145; BP diastolic 61–77; PULSE 83–104; RESP 14–20; TEMP 98–98.7; O2SAT 91–99
[2023-03-17] MEDS: AMPICILLIN & SULBACTAM SODIUM 3 GM in SODIUM CHL 0.9% 100 ML IV SCH ×4 (00:08→18:49)
[2023-03-17 05:45] LABS: Basophils # (auto) 0.1 10 ^3/uL (0-0.2); Eosinophils # (auto) 0.1 10 ^3/uL (0-0.8); Lymphocytes # (auto) 1.8 10 ^3/uL (0.4-5.4); Monocytes # (auto) 0.9 10 ^3/uL (0-1.3); Neutrophils % (auto) 69.4 % (37.0-80.0)
[2023-03-17 05:48] LABS: Basophils % (auto) 0.6 % (0.0-2.0); Eosinophils % (auto) 1.5 % (0.0-7.0); Hematocrit 30.6 % (41.0-53.0); Hemoglobin 10.6 g/dL (13.5-17.5); Lymphocytes % (auto) 19.1 % (10.0-50.0); Mean Corpuscular Hgb Conc. 34.5 g/dL (32.0-36.0); Mean Corpuscular Volume 89.9 fL (80.0-100.0); Monocytes % (auto) 9.4 % (0.0-12.0); Neutrophils # (auto) 6.6 10 ^3/uL (1.6-8.6); Red Blood Cells 3.41 10^6/uL (4.5-5.90); Red Cell Distribution Width 12.6 % (11.8-14.3); White Blood Cell 9.5 10^3/uL (4.4-10.8)
[2023-03-17 05:57] LABS: Calcium 8.3 mg/dL (8.5-10.1); Potassium 3.3 mmol/L (3.5-5.1)
[2023-03-17 05:59] LABS: BUN/Creatinine Ratio 13.1 (10.0-20.0)
[2023-03-17] MEDS: HYDROcodone-ACET 5/325MG TAB PO PRN ×2 (06:22→21:53)
[2023-03-17] MEDS: ACCU-CHEK COMFORT CURVE STRIP VI SCH ×4 (06:23→21:42)
[2023-03-17] MEDS: InsuLIN REG 1unit/0.01ml Soln (100units/ml) SC SCH ×4 (06:23→21:53)
[2023-03-17] MEDS: Pro-Stat SF 30ml Vanilla PO SCH ×2 (10:00→21:42)
[2023-03-17] MEDS: FUROSEMIDE 20 MG/2 ML VIAL IV SCH (11:21)
[2023-03-17 15:25] LABS: INR 1.05 (0.9-1.15); Partial Thromboplastin Time 35.1 SEC (24.5-34.5)
[2023-03-17] MEDS: MELATONIN 5 MG TAB PO SCH (21:53)
[2023-03-18] VITALS (8 sets, daily range): BP systolic 102–140; BP diastolic 54–75; PULSE 79–114; RESP 14–20; TEMP 97.4–98; O2SAT 98–99
[2023-03-18] MEDS: AMPICILLIN & SULBACTAM SODIUM 3 GM in SODIUM CHL 0.9% 100 ML IV SCH ×4 (00:23→18:18)
[2023-03-18] MEDS: ACCU-CHEK COMFORT CURVE STRIP VI SCH ×4 (06:18→21:53)
[2023-03-18] MEDS: InsuLIN REG 1unit/0.01ml Soln (100units/ml) SC SCH ×4 (06:18→21:58)
[2023-03-18 06:51] LABS: Basophils # (auto) 0.1 10 ^3/uL (0-0.2); Basophils % (auto) 0.8 % (0.0-2.0); Eosinophils # (auto) 0.1 10 ^3/uL (0-0.8); Red Cell Distribution Width 12.6 % (11.8-14.3)
[2023-03-18 06:53] LABS: Eosinophils % (auto) 1.6 % (0.0-7.0); Hematocrit 28.6 % (41.0-53.0); Hemoglobin 9.9 g/dL (13.5-17.5); Lymphocytes # (auto) 1.5 10 ^3/uL (0.4-5.4); Lymphocytes % (auto) 17.9 % (10.0-50.0); Mean Corpuscular Hemoglobin 30.9 pg (28.0-32.0); Mean Corpuscular Hgb Conc. 34.5 g/dL (32.0-36.0); Mean Corpuscular Volume 89.5 fL (80.0-100.0); Monocytes # (auto) 0.7 10 ^3/uL (0-1.3); Monocytes % (auto) 8.3 % (0.0-12.0); Neutrophils # (auto) 6.2 10 ^3/uL (1.6-8.6); Neutrophils % (auto) 71.4 % (37.0-80.0); Red Blood Cells 3.19 10^6/uL (4.5-5.90); White Blood Cell 8.6 10^3/uL (4.4-10.8)
[2023-03-18 07:09] LABS: Potassium 3.3 mmol/L (3.5-5.1)
[2023-03-18 07:15] LABS: BUN/Creatinine Ratio 14.4 (10.0-20.0); Calcium 8.4 mg/dL (8.5-10.1)
[2023-03-18] MEDS ORDERED: metroNIDAZOLE 500MG/100ML 100 ML IV ONE (09:04)
[2023-03-18] MEDS: FUROSEMIDE 20 MG/2 ML VIAL IV SCH (09:17)
[2023-03-18] MEDS: Pro-Stat SF 30ml Vanilla PO SCH ×2 (09:18→22:04)
[2023-03-18] MEDS ORDERED: ePHEDrine SULFATE 50 MG/ML AMP ONE (09:33)
[2023-03-18] MEDS ORDERED: DexAMETHasone SOD PHOS 10MG/1ML VIAL INJ ONE (09:33)
[2023-03-18] MEDS ORDERED: MIDAZOLAM HCL 2MG/2ML 2ml VIAL (1mg/ml) ONE (09:33)
[2023-03-18] MEDS ORDERED: LIDOCAINE 2% (LOCAL ANESTH.) PF 5ml SDV ONE (09:33)
[2023-03-18] MEDS ORDERED: HYDROmorphone HCL 2 MG/ML VL/or syr ONE (09:33)
[2023-03-18] MEDS ORDERED: fentaNYL CITRATE 100 MCG/2 ML VL ONE ×2 (09:33→11:06)
[2023-03-18] MEDS ORDERED: GLYCOPYRROLATE 0.2 MG/ML 1ML VIAL ONE (09:34)
[2023-03-18] MEDS ORDERED: ONDANSETRON HCL 4 MG/2 ML VIAL ONE (09:34)
[2023-03-18] MEDS ORDERED: PROPOFOL 10 MG/ML 20 ML IV ONE (09:34)
[2023-03-18] MEDS ORDERED: ROCURONIUM 10MG/ML 10ML VIAL IV ONE (09:41)
[2023-03-18] MEDS ORDERED: SUGAMMADEX 200mg/2ml Vial (100MG/ML) IV ONE (09:42)
[2023-03-18] MEDS ORDERED: BUPIVACAINE 0.25% INJ 50ML VIAL ONE (10:50)
[2023-03-18] MEDS ORDERED: LABETALOL HCL 5 MG/ML ML 20ML VIAL IV ONE (11:24)
[2023-03-18] MEDS ORDERED: MEPERIDINE HCL (50 MG/ML) 1 ML VIAL ONE (12:21)
[2023-03-18] MEDS ORDERED: ACCU-CHEK COMFORT CURVE STRIP VI ONE (13:00)
[2023-03-18] MEDS ORDERED: ONDANSETRON HCL 4 MG/2 ML VIAL IV PRN (13:00)
[2023-03-18] MEDS: HYDROmorphone HCL 2 MG/ML VL/or syr IV PRN ×4 (13:29→21:47)
[2023-03-18] MEDS: D5W/SOD CHL 0.45%/KCL 20MEQ 1,000 ML IV SCH (16:21)
[2023-03-18] MEDS: MELATONIN 5 MG TAB PO SCH (23:40)
[2023-03-19] MEDS: AMPICILLIN & SULBACTAM SODIUM 3 GM in SODIUM CHL 0.9% 100 ML IV SCH ×4 (01:06→18:30)
[2023-03-19] MEDS: D5W/SOD CHL 0.45%/KCL 20MEQ 1,000 ML IV SCH ×3 (01:08→11:21)
[2023-03-19 05:00] VITALS: BP 129/70; PULSE 64; RESP 18; TEMP 97.9; O2SAT 94
[2023-03-19] MEDS: ACCU-CHEK COMFORT CURVE STRIP VI SCH ×4 (06:38→22:00)
[2023-03-19] MEDS: InsuLIN REG 1unit/0.01ml Soln (100units/ml) SC SCH ×4 (06:42→22:00)
[2023-03-19 08:00] VITALS: BP 109/56; PULSE 101; PULSE 102; RESP 18; TEMP 98.6; O2SAT 97
[2023-03-19] MEDS: FUROSEMIDE 20 MG/2 ML VIAL IV SCH (09:06)
[2023-03-19] MEDS: HYDROmorphone HCL 2 MG/ML VL/or syr IV PRN ×3 (09:06→23:45)
[2023-03-19] MEDS: Pro-Stat SF 30ml Vanilla PO SCH ×2 (09:07→22:00)
[2023-03-19 12:00] VITALS: BP 116/63; PULSE 101; RESP 18; TEMP 98.4; O2SAT 97
[2023-03-19] MEDS: MORPHINE SULFATE INJ 2 MG/ml SYRG IV PRN (12:50)
[2023-03-19 16:00] VITALS: BP 146/62; PULSE 101; RESP 20; TEMP 98.2; O2SAT 97
[2023-03-19] MEDS: HYDROcodone-ACET 5/325MG TAB PO PRN (18:29)
[2023-03-19 20:00] VITALS: PULSE 104
[2023-03-19 22:00] VITALS: BP 113/52; PULSE 113; RESP 19; TEMP 98; O2SAT 91
[2023-03-19] MEDS: MELATONIN 5 MG TAB PO SCH (22:00)
[2023-03-20] VITALS (9 sets, daily range): BP systolic 118–136; BP diastolic 57–76; PULSE 100–110; RESP 14–19; TEMP 98.2–99.5; O2SAT 92–100
[2023-03-20] MEDS: AMPICILLIN & SULBACTAM SODIUM 3 GM in SODIUM CHL 0.9% 100 ML IV SCH ×4 (01:01→17:55)
[2023-03-20] MEDS: MORPHINE SULFATE INJ 2 MG/ml SYRG IV PRN ×3 (03:24→19:51)
[2023-03-20] MEDS: D5W/SOD CHL 0.45%/KCL 20MEQ 1,000 ML IV SCH ×3 (04:30→21:17)
[2023-03-20] MEDS: HYDROmorphone HCL 2 MG/ML VL/or syr IV PRN ×2 (05:43→14:21)
[2023-03-20] MEDS: ACCU-CHEK COMFORT CURVE STRIP VI SCH ×4 (06:24→21:46)
[2023-03-20] MEDS: InsuLIN REG 1unit/0.01ml Soln (100units/ml) SC SCH ×4 (06:28→21:54)
[2023-03-20 06:50] LABS: BUN/Creatinine Ratio 12.6 (10.0-20.0); Calcium 7.6 mg/dL (8.5-10.1); Potassium 4.1 mmol/L (3.5-5.1)
[2023-03-20 07:11] LABS: Basophils # (auto) 0 10 ^3/uL (0-0.2); Eosinophils # (auto) 0.1 10 ^3/uL (0-0.8); White Blood Cell 11.1 10^3/uL (4.4-10.8)
[2023-03-20 07:15] LABS: Basophils % (auto) 0.3 % (0.0-2.0); Eosinophils % (auto) 0.7 % (0.0-7.0); Hematocrit 20.1 % (41.0-53.0); Lymphocytes # (auto) 1.3 10 ^3/uL (0.4-5.4); Lymphocytes % (auto) 11.4 % (10.0-50.0); Mean Corpuscular Hemoglobin 30.4 pg (28.0-32.0); Mean Corpuscular Hgb Conc. 33.9 g/dL (32.0-36.0); Mean Corpuscular Volume 89.8 fL (80.0-100.0); Monocytes % (auto) 9.2 % (0.0-12.0); Neutrophils # (auto) 8.7 10 ^3/uL (1.6-8.6); Neutrophils % (auto) 78.4 % (37.0-80.0); Nucleated Red Blood Cells % 0.2 %; Red Blood Cells 2.23 10^6/uL (4.5-5.90); Red Cell Distribution Width 12.9 % (11.8-14.3)
[2023-03-20 07:40] LABS: Hemoglobin 6.8 g/dL (13.5-17.5)
[2023-03-20] MEDS: Pro-Stat SF 30ml Vanilla PO SCH ×2 (10:16→21:45)
[2023-03-20] MEDS: FUROSEMIDE 20 MG/2 ML VIAL IV SCH (10:17)
[2023-03-20] MEDS: MELATONIN 5 MG TAB PO SCH (21:44)
[2023-03-20] MEDS: HYDROcodone-ACET 5/325MG TAB PO PRN (22:57)
[2023-03-21] VITALS (9 sets, daily range): BP systolic 114–141; BP diastolic 61–83; PULSE 90–141; RESP 16–83; TEMP 98.2–98.7; O2SAT 100
[2023-03-21] MEDS: AMPICILLIN & SULBACTAM SODIUM 3 GM in SODIUM CHL 0.9% 100 ML IV SCH ×4 (01:33→18:07)
[2023-03-21] MEDS: HYDROmorphone HCL 2 MG/ML VL/or syr IV PRN ×4 (03:33→22:34)
[2023-03-21] MEDS: ACCU-CHEK COMFORT CURVE STRIP VI SCH ×4 (06:12→21:57)
[2023-03-21] MEDS: InsuLIN REG 1unit/0.01ml Soln (100units/ml) SC SCH ×4 (06:30→22:07)
[2023-03-21] MEDS: FUROSEMIDE 20 MG/2 ML VIAL IV SCH (10:00)
[2023-03-21] MEDS: Pro-Stat SF 30ml Vanilla PO SCH ×2 (10:00→21:56)
[2023-03-21] MEDS: D5W/SOD CHL 0.45%/KCL 20MEQ 1,000 ML IV SCH ×2 (10:01→22:41)
[2023-03-21] MEDS: MORPHINE SULFATE INJ 2 MG/ml SYRG IV PRN (20:14)
[2023-03-21] MEDS: MELATONIN 5 MG TAB PO SCH (21:56)
[2023-03-22] VITALS (7 sets, daily range): BP systolic 130–155; BP diastolic 74–78; PULSE 90–101; RESP 16–19; TEMP 97.8–98.9; O2SAT 99–100
[2023-03-22] MEDS: AMPICILLIN & SULBACTAM SODIUM 3 GM in SODIUM CHL 0.9% 100 ML IV SCH ×4 (01:10→19:13)
[2023-03-22] MEDS: HYDROcodone-ACET 5/325MG TAB PO PRN (01:22)
[2023-03-22] MEDS: DOCUSATE SOD 100 MG CAP PO PRN (01:23)
[2023-03-22] MEDS: HYDROmorphone HCL 2 MG/ML VL/or syr IV PRN ×4 (04:43→23:18)
[2023-03-22] MEDS: ACCU-CHEK COMFORT CURVE STRIP VI SCH ×4 (06:03→21:34)
[2023-03-22 06:13] LABS: Basophils # (auto) 0.1 10 ^3/uL (0-0.2); Basophils % (auto) 0.7 % (0.0-2.0); Hemoglobin 8.1 g/dL (13.5-17.5); Monocytes # (auto) 0.8 10 ^3/uL (0-1.3); Nucleated Red Blood Cells % 0.1 %
[2023-03-22 06:17] LABS: Eosinophils # (auto) 0.2 10 ^3/uL (0-0.8); Lymphocytes # (auto) 1.6 10 ^3/uL (0.4-5.4); Lymphocytes % (auto) 18.9 % (10.0-50.0); Mean Corpuscular Hgb Conc. 33.7 g/dL (32.0-36.0); Mean Corpuscular Volume 89.1 fL (80.0-100.0); Neutrophils # (auto) 5.7 10 ^3/uL (1.6-8.6); Neutrophils % (auto) 68.4 % (37.0-80.0); Red Cell Distribution Width 13.3 % (11.8-14.3); White Blood Cell 8.4 10^3/uL (4.4-10.8)
[2023-03-22] MEDS: InsuLIN REG 1unit/0.01ml Soln (100units/ml) SC SCH ×4 (06:31→22:00)
[2023-03-22] MEDS: FUROSEMIDE 20 MG/2 ML VIAL IV SCH (11:02)
[2023-03-22] MEDS: D5W/SOD CHL 0.45%/KCL 20MEQ 1,000 ML IV SCH ×2 (11:02→17:20)
[2023-03-22] MEDS: Pro-Stat SF 30ml Vanilla PO SCH ×2 (11:03→21:34)
[2023-03-22] MEDS: MELATONIN 5 MG TAB PO SCH (21:34)
[2023-03-23] VITALS (7 sets, daily range): BP systolic 127–142; BP diastolic 59–75; PULSE 91–101; RESP 16–19; TEMP 98.1–98.5; O2SAT 98–100
[2023-03-23] MEDS: AMPICILLIN & SULBACTAM SODIUM 3 GM in SODIUM CHL 0.9% 100 ML IV SCH ×4 (00:37→21:11)
[2023-03-23] MEDS: D5W/SOD CHL 0.45%/KCL 20MEQ 1,000 ML IV SCH ×4 (02:30→22:30)
[2023-03-23] MEDS: MORPHINE SULFATE INJ 2 MG/ml SYRG IV PRN (02:46)
[2023-03-23] MEDS: HYDROmorphone HCL 2 MG/ML VL/or syr IV PRN ×4 (05:24→23:42)
[2023-03-23] MEDS: InsuLIN REG 1unit/0.01ml Soln (100units/ml) SC SCH ×4 (06:13→22:00)
[2023-03-23] MEDS: ACCU-CHEK COMFORT CURVE STRIP VI SCH ×4 (06:22→22:00)
[2023-03-23] MEDS: Pro-Stat SF 30ml Vanilla PO SCH ×2 (10:44→22:00)
[2023-03-23] MEDS: FUROSEMIDE 20 MG/2 ML VIAL IV SCH (10:45)
[2023-03-23] MEDS: MELATONIN 5 MG TAB PO SCH (21:11)
[2023-03-24] VITALS (7 sets, daily range): BP systolic 121–144; BP diastolic 62–78; PULSE 85–101; RESP 17–20; TEMP 98–98.6; O2SAT 93–100
[2023-03-24] MEDS: AMPICILLIN & SULBACTAM SODIUM 3 GM in SODIUM CHL 0.9% 100 ML IV SCH ×4 (01:16→17:58)
[2023-03-24 05:31] LABS: Basophils # (auto) 0 10 ^3/uL (0-0.2); Eosinophils # (auto) 0.3 10 ^3/uL (0-0.8); Hematocrit 24.3 % (41.0-53.0); Hemoglobin 8.2 g/dL (13.5-17.5); Monocytes # (auto) 0.9 10 ^3/uL (0-1.3)
[2023-03-24 05:35] LABS: Basophils % (auto) 0.6 % (0.0-2.0); Eosinophils % (auto) 4.1 % (0.0-7.0); Lymphocytes # (auto) 1.6 10 ^3/uL (0.4-5.4); Lymphocytes % (auto) 21.3 % (10.0-50.0); Mean Corpuscular Hemoglobin 29.7 pg (28.0-32.0); Mean Corpuscular Hgb Conc. 33.7 g/dL (32.0-36.0); Mean Corpuscular Volume 88.2 fL (80.0-100.0); Monocytes % (auto) 11.7 % (0.0-12.0); Neutrophils # (auto) 4.7 10 ^3/uL (1.6-8.6); Neutrophils % (auto) 62.3 % (37.0-80.0); Nucleated Red Blood Cells % 0.2 %; Red Blood Cells 2.75 10^6/uL (4.5-5.90); White Blood Cell 7.6 10^3/uL (4.4-10.8)
[2023-03-24 05:50] LABS: Calcium 8.2 mg/dL (8.5-10.1); Potassium 3.8 mmol/L (3.5-5.1)
[2023-03-24] MEDS: HYDROmorphone HCL 2 MG/ML VL/or syr IV PRN ×3 (06:23→18:49)
[2023-03-24] MEDS: ACCU-CHEK COMFORT CURVE STRIP VI SCH ×4 (06:59→21:33)
[2023-03-24] MEDS: InsuLIN REG 1unit/0.01ml Soln (100units/ml) SC SCH ×4 (06:59→22:11)
[2023-03-24] MEDS: D5W/SOD CHL 0.45%/KCL 20MEQ 1,000 ML IV SCH ×2 (10:32→18:30)
[2023-03-24] MEDS: FUROSEMIDE 20 MG/2 ML VIAL IV SCH (10:33)
[2023-03-24] MEDS: Pro-Stat SF 30ml Vanilla PO SCH ×2 (10:34→22:09)
[2023-03-24] MEDS: MELATONIN 5 MG TAB PO SCH (22:10)
[2023-03-25] VITALS (7 sets, daily range): BP systolic 123–143; BP diastolic 66–74; PULSE 87–106; RESP 12–20; TEMP 98.1–98.6; O2SAT 96–100
[2023-03-25] MEDS: HYDROmorphone HCL 2 MG/ML VL/or syr IV PRN ×4 (01:02→21:52)
[2023-03-25] MEDS: AMPICILLIN & SULBACTAM SODIUM 3 GM in SODIUM CHL 0.9% 100 ML IV SCH ×4 (01:12→18:23)
[2023-03-25] MEDS: D5W/SOD CHL 0.45%/KCL 20MEQ 1,000 ML IV SCH ×2 (04:56→17:41)
[2023-03-25] MEDS: ACCU-CHEK COMFORT CURVE STRIP VI SCH ×4 (06:25→21:24)
[2023-03-25] MEDS: InsuLIN REG 1unit/0.01ml Soln (100units/ml) SC SCH ×4 (06:39→22:02)
[2023-03-25 06:49] LABS: Potassium 3.9 mmol/L (3.5-5.1)
[2023-03-25 06:54] LABS: BUN/Creatinine Ratio 9.7 (10.0-20.0); Calcium 8.4 mg/dL (8.5-10.1)
[2023-03-25 07:00] LABS: Basophils # (auto) 0 10 ^3/uL (0-0.2); Eosinophils # (auto) 0.3 10 ^3/uL (0-0.8); Hematocrit 24.2 % (41.0-53.0); Hemoglobin 8.2 g/dL (13.5-17.5); Mean Corpuscular Hemoglobin 30.1 pg (28.0-32.0); Mean Corpuscular Volume 88.6 fL (80.0-100.0); Monocytes # (auto) 0.8 10 ^3/uL (0-1.3); Monocytes % (auto) 10.5 % (0.0-12.0); Nucleated Red Blood Cells % 0.1 %; Red Blood Cells 2.73 10^6/uL (4.5-5.90)
[2023-03-25 07:04] LABS: Basophils % (auto) 0.3 % (0.0-2.0); Lymphocytes # (auto) 1.4 10 ^3/uL (0.4-5.4); Lymphocytes % (auto) 19.4 % (10.0-50.0); Mean Corpuscular Hgb Conc. 33.9 g/dL (32.0-36.0); Neutrophils # (auto) 4.9 10 ^3/uL (1.6-8.6); Neutrophils % (auto) 65.8 % (37.0-80.0); Red Cell Distribution Width 13.1 % (11.8-14.3); White Blood Cell 7.4 10^3/uL (4.4-10.8)
[2023-03-25] MEDS: FUROSEMIDE 20 MG/2 ML VIAL IV SCH (09:54)
[2023-03-25] MEDS: Pro-Stat SF 30ml Vanilla PO SCH ×2 (09:55→22:02)
[2023-03-25] MEDS: MELATONIN 5 MG TAB PO SCH (21:52)
[2023-03-25] MEDS: DOCUSATE SOD 100 MG CAP PO PRN (21:52)
[2023-03-26] VITALS (7 sets, daily range): BP systolic 114–136; BP diastolic 63–73; PULSE 81–109; RESP 17–20; TEMP 98.3–98.8; O2SAT 95–98
[2023-03-26] MEDS: AMPICILLIN & SULBACTAM SODIUM 3 GM in SODIUM CHL 0.9% 100 ML IV SCH ×4 (00:49→18:19)
[2023-03-26] MEDS: D5W/SOD CHL 0.45%/KCL 20MEQ 1,000 ML IV SCH ×2 (00:50→09:44)
[2023-03-26] MEDS: HYDROmorphone HCL 2 MG/ML VL/or syr IV PRN ×3 (05:00→21:12)
[2023-03-26 06:29] LABS: Basophils # (auto) 0 10 ^3/uL (0-0.2); Eosinophils # (auto) 0.3 10 ^3/uL (0-0.8); Lymphocytes # (auto) 1.2 10 ^3/uL (0.4-5.4); Neutrophils # (auto) 5.4 10 ^3/uL (1.6-8.6); White Blood Cell 7.7 10^3/uL (4.4-10.8)
[2023-03-26 06:32] LABS: Basophils % (auto) 0.5 % (0.0-2.0); Eosinophils % (auto) 3.3 % (0.0-7.0); Hematocrit 23.4 % (41.0-53.0); Lymphocytes % (auto) 15.3 % (10.0-50.0); Mean Corpuscular Hemoglobin 30.4 pg (28.0-32.0); Mean Corpuscular Hgb Conc. 34.4 g/dL (32.0-36.0); Mean Corpuscular Volume 88.6 fL (80.0-100.0); Monocytes # (auto) 0.9 10 ^3/uL (0-1.3); Monocytes % (auto) 11.2 % (0.0-12.0); Neutrophils % (auto) 69.7 % (37.0-80.0); Nucleated Red Blood Cells % 0.1 %; Red Blood Cells 2.64 10^6/uL (4.5-5.90); Red Cell Distribution Width 12.9 % (11.8-14.3)
[2023-03-26 06:36] LABS: Potassium 3.6 mmol/L (3.5-5.1)
[2023-03-26 06:44] LABS: BUN/Creatinine Ratio 13.1 (10.0-20.0); Calcium 8.4 mg/dL (8.5-10.1)
[2023-03-26] MEDS: InsuLIN REG 1unit/0.01ml Soln (100units/ml) SC SCH ×4 (07:00→22:00)
[2023-03-26] MEDS: ACCU-CHEK COMFORT CURVE STRIP VI SCH ×4 (07:07→21:28)
[2023-03-26] MEDS: Pro-Stat SF 30ml Vanilla PO SCH ×2 (09:43→21:12)
[2023-03-26] MEDS: FUROSEMIDE 20 MG/2 ML VIAL IV SCH (09:43)
[2023-03-26] MEDS: DOCUSATE SOD 100 MG CAP PO PRN (09:52)
[2023-03-26] MEDS ORDERED: LACTULOSE 20Gm/30ML SOLN PO PRN (13:15)
[2023-03-26] MEDS: metFORMIN HYDROCHLORIDE 850 MG TAB PO SCH (18:00)
[2023-03-26] MEDS: MELATONIN 5 MG TAB PO SCH (21:12)
[2023-03-27] MEDS: AMPICILLIN & SULBACTAM SODIUM 3 GM in SODIUM CHL 0.9% 100 ML IV SCH ×2 (01:15→06:45)
[2023-03-27] MEDS: HYDROmorphone HCL 2 MG/ML VL/or syr IV PRN ×3 (04:27→21:58)
[2023-03-27 05:00] VITALS: BP 117/66; PULSE 87; RESP 17; TEMP 98.4; O2SAT 100
[2023-03-27 06:05] LABS: Basophils # (auto) 0 10 ^3/uL (0-0.2); Basophils % (auto) 0.5 % (0.0-2.0); Eosinophils # (auto) 0.2 10 ^3/uL (0-0.8); Eosinophils % (auto) 2.8 % (0.0-7.0); Hematocrit 22.9 % (41.0-53.0); Hemoglobin 7.8 g/dL (13.5-17.5); Lymphocytes # (auto) 1.3 10 ^3/uL (0.4-5.4); Lymphocytes % (auto) 15.9 % (10.0-50.0); Mean Corpuscular Hemoglobin 30.1 pg (28.0-32.0); Mean Corpuscular Hgb Conc. 34.2 g/dL (32.0-36.0); Mean Corpuscular Volume 88.2 fL (80.0-100.0); Monocytes # (auto) 0.8 10 ^3/uL (0-1.3); Monocytes % (auto) 9.5 % (0.0-12.0); Neutrophils # (auto) 5.7 10 ^3/uL (1.6-8.6); Neutrophils % (auto) 71.3 % (37.0-80.0); Red Cell Distribution Width 12.9 % (11.8-14.3); White Blood Cell 7.9 10^3/uL (4.4-10.8)
[2023-03-27] MEDS: ACCU-CHEK COMFORT CURVE STRIP VI SCH ×4 (06:35→21:56)
[2023-03-27] MEDS: InsuLIN REG 1unit/0.01ml Soln (100units/ml) SC SCH ×4 (06:46→22:03)
[2023-03-27 06:52] LABS: Potassium 3.8 mmol/L (3.5-5.1)
[2023-03-27 06:56] LABS: BUN/Creatinine Ratio 13.5 (10.0-20.0); Calcium 8.5 mg/dL (8.5-10.1)
[2023-03-27 08:00] VITALS: PULSE 102; PULSE 89; RESP 18; O2SAT 98
[2023-03-27] MEDS: metFORMIN HYDROCHLORIDE 850 MG TAB PO SCH (08:00)
[2023-03-27 09:27] VITALS: BP 124/80; PULSE 108; RESP 18; TEMP 98.2; O2SAT 98
[2023-03-27] MEDS: FUROSEMIDE 20 MG/2 ML VIAL IV SCH (10:11)
[2023-03-27] MEDS: Pro-Stat SF 30ml Vanilla PO SCH ×2 (10:19→22:00)
[2023-03-27] MEDS ORDERED: EMPA1TAB PO (10:55)
[2023-03-27] MEDS ORDERED: HYDR-4902 PO (10:55)
[2023-03-27] MEDS: EMPAGLIFLOZIN 10 MG TAB PO SCH (11:00)
[2023-03-27] MEDS: HYDROcodone-ACET 5/325MG TAB PO PRN (12:01)
[2023-03-27 16:41] VITALS: BP 118/64; PULSE 95; RESP 19; TEMP 98.4; O2SAT 97
[2023-03-27 20:00] VITALS: PULSE 106; PULSE 124; RESP 18; O2SAT 97
[2023-03-27] MEDS: MELATONIN 5 MG TAB PO SCH (21:57)
[2023-03-27 22:00] VITALS: BP 135/70; PULSE 103; RESP 19; TEMP 98.2; O2SAT 92
[2023-03-28] VITALS (7 sets, daily range): BP systolic 123–132; BP diastolic 67–72; PULSE 86–115; RESP 14–18; TEMP 98–98.6; O2SAT 95–100
[2023-03-28] MEDS: HYDROmorphone HCL 2 MG/ML VL/or syr IV PRN ×3 (05:19→18:56)
[2023-03-28 05:41] LABS: Eosinophils # (auto) 0.3 10 ^3/uL (0-0.8); Lymphocytes # (auto) 1.3 10 ^3/uL (0.4-5.4)
[2023-03-28 05:42] LABS: Basophils # (auto) 0 10 ^3/uL (0-0.2); Basophils % (auto) 0.6 % (0.0-2.0); Eosinophils % (auto) 4.2 % (0.0-7.0); Hematocrit 24.4 % (41.0-53.0); Hemoglobin 8.3 g/dL (13.5-17.5); Lymphocytes % (auto) 19.8 % (10.0-50.0); Mean Corpuscular Hemoglobin 29.8 pg (28.0-32.0); Mean Corpuscular Volume 87.8 fL (80.0-100.0); Monocytes # (auto) 0.8 10 ^3/uL (0-1.3); Monocytes % (auto) 11.6 % (0.0-12.0); Neutrophils # (auto) 4.1 10 ^3/uL (1.6-8.6); Neutrophils % (auto) 63.8 % (37.0-80.0); Nucleated Red Blood Cells % 0.2 %; Red Blood Cells 2.78 10^6/uL (4.5-5.90); Red Cell Distribution Width 12.8 % (11.8-14.3); White Blood Cell 6.5 10^3/uL (4.4-10.8)
[2023-03-28] MEDS: ACCU-CHEK COMFORT CURVE STRIP VI SCH ×4 (06:16→21:30)
[2023-03-28] MEDS: EMPAGLIFLOZIN 10 MG TAB PO SCH (06:16)
[2023-03-28] MEDS: InsuLIN REG 1unit/0.01ml Soln (100units/ml) SC SCH ×4 (06:18→21:28)
[2023-03-28] MEDS: Pro-Stat SF 30ml Vanilla PO SCH ×2 (11:21→21:34)
[2023-03-28] MEDS: FUROSEMIDE 20 MG/2 ML VIAL IV SCH (11:32)
[2023-03-28] MEDS: MORPHINE SULFATE INJ 2 MG/ml SYRG IV PRN (11:33)
[2023-03-28] MEDS: MELATONIN 5 MG TAB PO SCH (21:29)
[2023-03-29] VITALS (8 sets, daily range): BP systolic 98–135; BP diastolic 57–77; PULSE 85–101; RESP 14–18; TEMP 97.2–98.5; O2SAT 93–99
[2023-03-29] MEDS: HYDROmorphone HCL 2 MG/ML VL/or syr IV PRN ×4 (00:59→20:22)
[2023-03-29] MEDS: InsuLIN REG 1unit/0.01ml Soln (100units/ml) SC SCH ×4 (06:51→22:10)
[2023-03-29] MEDS: EMPAGLIFLOZIN 10 MG TAB PO SCH (06:52)
[2023-03-29] MEDS: ACCU-CHEK COMFORT CURVE STRIP VI SCH ×4 (07:00→22:00)
[2023-03-29] MEDS: FUROSEMIDE 20 MG/2 ML VIAL IV SCH (09:56)
[2023-03-29] MEDS: Pro-Stat SF 30ml Vanilla PO SCH ×2 (09:57→22:00)
[2023-03-29] MEDS: MELATONIN 5 MG TAB PO SCH (22:11)
[2023-03-30] VITALS (7 sets, daily range): BP systolic 106–123; BP diastolic 53–67; PULSE 80–96; RESP 18–21; TEMP 97.3–98.6; O2SAT 96–99
[2023-03-30] MEDS: HYDROmorphone HCL 2 MG/ML VL/or syr IV PRN ×4 (03:19→22:56)
[2023-03-30] MEDS: EMPAGLIFLOZIN 10 MG TAB PO SCH (06:22)
[2023-03-30] MEDS: InsuLIN REG 1unit/0.01ml Soln (100units/ml) SC SCH ×4 (06:23→22:06)
[2023-03-30] MEDS: ACCU-CHEK COMFORT CURVE STRIP VI SCH ×4 (06:23→22:07)
[2023-03-30] MEDS: FUROSEMIDE 20 MG/2 ML VIAL IV SCH (09:51)
[2023-03-30] MEDS: Pro-Stat SF 30ml Vanilla PO SCH ×2 (09:51→22:01)
[2023-03-30] MEDS: MELATONIN 5 MG TAB PO SCH (22:01)
[2023-03-31 05:00] VITALS: BP 117/59; PULSE 85; RESP 18; TEMP 98.1; O2SAT 96
[2023-03-31] MEDS: HYDROmorphone HCL 2 MG/ML VL/or syr IV PRN ×2 (05:19→11:25)
[2023-03-31] MEDS: EMPAGLIFLOZIN 10 MG TAB PO SCH (06:28)
[2023-03-31] MEDS: InsuLIN REG 1unit/0.01ml Soln (100units/ml) SC SCH ×2 (06:39→11:29)
[2023-03-31] MEDS: ACCU-CHEK COMFORT CURVE STRIP VI SCH ×2 (06:47→11:29)
[2023-03-31 08:35] VITALS: BP_SYST 104; BP_SYST 140; BP_DIAS 59; BP_DIAS 98; PULSE 60; PULSE 99; RESP 20; RESP 22; TEMP 98; TEMP 98.2; O2SAT 95
[2023-03-31] MEDS: FUROSEMIDE 20 MG/2 ML VIAL IV SCH (10:22)
[2023-03-31] MEDS: Pro-Stat SF 30ml Vanilla PO SCH (10:24)
[2023-03-31 12:48] VITALS: BP 101/64; PULSE 88; RESP 22; TEMP 98.2; O2SAT 98
== END 2023-03-31 13:44 | disposition home or self-care (01) | DRG 720 ==
LOC: EDBD 05:26 → ER 05:26 → TELE 13:31 → TELE-EAST 03-01 21:06
PROVIDERS: ADMIT Internal Medicine Pulmonary Disease; ATTEND Internal Medicine Pulmonary Disease
PROC: 0W9900Z Drainage of Right Pleural Cavity with Drainage Device, Open Approach (ICD-10-PCS; principal; 2023-03-06)
PROC: 0B968ZZ Drainage of Right Lower Lobe Bronchus, Via Natural or Artificial Opening Endoscopic (ICD-10-PCS; 2023-03-12)
PROC: 0B948ZZ Drainage of Right Upper Lobe Bronchus, Via Natural or Artificial Opening Endoscopic (ICD-10-PCS; 2023-03-12)
PROC: 0W9930Z Drainage of Right Pleural Cavity with Drainage Device, Percutaneous Approach (ICD-10-PCS; 2023-03-18)
PROC: 30233N1 Transfusion of Nonautologous Red Blood Cells into Peripheral Vein, Percutaneous Approach (ICD-10-PCS; 2023-03-20)
DX: A41.9 Sepsis, unspecified organism (principal); J96.01 Acute respiratory failure with hypoxia; J94.8 Other specified pleural conditions; N17.9 Acute kidney failure, unspecified; J15.9 Unspecified bacterial pneumonia; D63.8 Anemia in other chronic diseases classified elsewhere; D62 Acute posthemorrhagic anemia; R04.2 Hemoptysis; Z20.822 Contact with and (suspected) exposure to COVID-19; E11.65 Type 2 diabetes mellitus with hyperglycemia; D75.839 Thrombocytosis, unspecified; F17.200 Nicotine dependence, unspecified, uncomplicated; E66.01 Morbid (severe) obesity due to excess calories; Z71.3 Dietary counseling and surveillance; Z68.30 Body mass index [BMI] 30.0-30.9, adult; Z83.3 Family history of diabetes mellitus; Z80.1 Family history of malignant neoplasm of trachea, bronchus and lung; Z78.9 Other specified health status
CPT/HCPCS: 10005; 31645; 36415; 36600; 71045; 71046; 71250; 71275; 77012; 80048; 80053; 80202; 81001; 82570; 82805; 82962; 83036; 83605; 83735; 83880; 83986; 84300; 84484; 85025; 85610; 85730; 86606; 86635; 86703; 86850; 86900; 86901; 86920; 87040; 87070; 87075; 87081; 87205; 87426; 89051; 93005; 93306; 93970; 96361; 96365; 96366; 96367; 96368; 96372; 96375; 96376; 97110; 97116; 97163; 97530; A4223; C9113; G0378; J0171; J1100; J1815; J1885; J1956; J2001; J2250; J2405; J2543; J2704; J3490

== ENCOUNTER 2024-05-04 22:19 | Inpatient (IN) | payer MEDICAID ==
[~2024-05-04] VITALS: Ht 188 cm; Wt 95.6 kg
[~2024-05-04 22:19] MED LIST: EMPA1TAB PO; HYDR-4902 PO
[2024-05-05] MEDS: PIPERACILLIN-TAZOB 3.375GM 100 ML IV ONE (02:59)
[2024-05-05 03:09] LABS: Basophils # (auto) 0.1 10 ^3/uL (0-0.2); Basophils % (auto) 0.9 % (0.0-2.0); Eosinophils # (auto) 0 10 ^3/uL (0-0.8); Eosinophils % (auto) 0.3 % (0.0-7.0); Hematocrit 40.1 % (41.0-53.0); Hemoglobin 13.5 g/dL (13.5-17.5); Lymphocytes # (auto) 1.4 10 ^3/uL (0.4-5.4); Lymphocytes % (auto) 10.1 % (10.0-50.0); Mean Corpuscular Hemoglobin 31.6 pg (28.0-32.0); Mean Corpuscular Hgb Conc. 33.5 g/dL (32.0-36.0); Mean Corpuscular Volume 94.2 fL (80.0-100.0); Monocytes # (auto) 1.2 10 ^3/uL (0-1.3); Monocytes % (auto) 8.9 % (0.0-12.0); Neutrophils # (auto) 11.1 10 ^3/uL (1.6-8.6); Neutrophils % (auto) 79.8 % (37.0-80.0); Platelet Count (auto) 410 10^3/uL (140-450); Red Blood Cells 4.26 10^6/uL (4.5-5.90); Red Cell Distribution Width 12.5 % (11.8-14.3); White Blood Cell 13.9 10^3/uL (4.4-10.8)
[2024-05-05 03:23] LABS: INR 1.01 (0.9-1.15); Partial Thromboplastin Time 34.7 SEC (24.5-34.5); Prothrombin Time 10.7 sec (9.3-11.8)
[2024-05-05 03:25] LABS: Alanine Aminotransferase 11 U/L (7-40); Albumin 4.4 g/dL (3.2-4.8); Alkaline Phosphatase 95 U/L (46-116); Anion Gap 5 (5-15); Aspartate Aminotransferase < 8 U/L (13-40); BUN/Creatinine Ratio 13.8 (10.0-20.0); Bilirubin, Total 0.6 mg/dL (0.2-1.0); Blood Urea Nitrogen 22 mg/dL (9-23); Calcium 9.8 mg/dL (8.7-10.4); Carbon Dioxide 26 mmol/L (20-30); Chloride 103 mmol/L (98-107); Glucose 208 mg/dL (74-106); Potassium 4.4 mmol/L (3.5-5.1); Sodium 134 mmol/L (136-145); Total Protein 8.2 g/dL (5.7-8.2)
[2024-05-05] MEDS ORDERED: ONDANSETRON HCL 4 MG/2 ML VIAL IV PRN (09:30)
[2024-05-05] MEDS ORDERED: DOCUSATE SOD 100 MG CAP PO PRN (09:30)
[2024-05-05] MEDS ORDERED: ACETAMINOPHEN 325 MG TAB PO PRN (09:30)
[2024-05-05] MEDS ORDERED: VANCOMYCIN PER PHARMACY 0 MG IV SCH (10:00)
[2024-05-05] MEDS ORDERED: DEXTROSE (50%) 50ML SYRG IV PRN (10:15)
[2024-05-05 10:42] LABS: Basophils # (auto) 0.1 10 ^3/uL (0-0.2); Basophils % (auto) 0.4 % (0.0-2.0); Eosinophils # (auto) 0 10 ^3/uL (0-0.8); Eosinophils % (auto) 0.3 % (0.0-7.0); Hematocrit 39.5 % (41.0-53.0); Hemoglobin 13.5 g/dL (13.5-17.5); Lymphocytes # (auto) 1.3 10 ^3/uL (0.4-5.4); Lymphocytes % (auto) 9.2 % (10.0-50.0); Mean Corpuscular Hemoglobin 31.7 pg (28.0-32.0); Mean Corpuscular Hgb Conc. 34.1 g/dL (32.0-36.0); Mean Corpuscular Volume 93.2 fL (80.0-100.0); Monocytes # (auto) 1.1 10 ^3/uL (0-1.3); Monocytes % (auto) 8.3 % (0.0-12.0); Neutrophils # (auto) 11.3 10 ^3/uL (1.6-8.6); Neutrophils % (auto) 81.8 % (37.0-80.0); Platelet Count (auto) 391 10^3/uL (140-450); Red Blood Cells 4.24 10^6/uL (4.5-5.90); Red Cell Distribution Width 12.7 % (11.8-14.3); White Blood Cell 13.9 10^3/uL (4.4-10.8)
[2024-05-05 10:58] LABS: Alanine Aminotransferase 13 U/L (7-40); Albumin 4.2 g/dL (3.2-4.8); Alkaline Phosphatase 90 U/L (46-116); Anion Gap 8 (5-15); Aspartate Aminotransferase < 8 U/L (13-40); Blood Urea Nitrogen 23 mg/dL (9-23); Calcium 9.8 mg/dL (8.7-10.4); Carbon Dioxide 22 mmol/L (20-30); Chloride 105 mmol/L (98-107); Glucose 147 mg/dL (74-106); Sodium 135 mmol/L (136-145)
[2024-05-05 10:59] LABS: Bilirubin, Total 0.7 mg/dL (0.2-1.0); Total Protein 8.1 g/dL (5.7-8.2)
[2024-05-05 11:03] LABS: Erythrocyte Sedimentation Rate 80 mm/hr (0-20)
[2024-05-05] MEDS: InsuLIN REG 1unit/0.01ml Soln (100units/ml) SC SCH ×2 (11:30→21:23)
[2024-05-05] MEDS: ACCU-CHEK COMFORT CURVE STRIP VI SCH (11:59)
[2024-05-05] MEDS: LACTATED RINGER'S 1,000 ML IV SCH (12:21)
[2024-05-05] MEDS: VANCOMYCIN 1GM/200ML 200 ML IV SCH (12:50)
[2024-05-05] MEDS: SODIUM CHLOR 0.9% PF (SALINE LOCK) 10ML VIAL/SYR IV SCH (14:09)
[2024-05-05 14:18] LABS: Urine Bacteria None Seen /hpf (None Seen)
[2024-05-05] MEDS: HYDROmorphone HCL 2 MG/ML VL/or syr IV PRN (14:25)
[2024-05-05 14:50] LABS: Protein, Urine 141.2 mg/dL (0.0-11.9)
[2024-05-05 14:52] LABS: Creatinine, Urine 179.36 mg/dL (30.0-125.0); Urine Protein/Creatinine Ratio 0.79
[2024-05-05 14:54] LABS: Magnesium 2.1 mg/dL (1.6-2.6)
[2024-05-05 14:55] LABS: Urine Blood Negative /uL (Negative); Urine Clarity Clear (Clear); Urine Color Yellow (Yellow); Urine Protein, UAD 2+ (Negative); Urine Specific Gravity 1.039 (1.001-1.035); Urine Urobilinogen Normal (Negative); Urine WBC 2 /hpf (0 - 3); Urine pH 5.5 (5.0-9.0)
[2024-05-05 14:56] LABS: Phosphorus 4.3 mg/dL (2.4-5.1)
[2024-05-05 15:02] VITALS: BP 131/85; PULSE 94; RESP 18; TEMP 98.2; O2SAT 99
[2024-05-05 15:07] VITALS: BP 131/85; PULSE 94; RESP 18; TEMP 98.2; O2SAT 99
[2024-05-05 15:11] LABS: Uric Acid 6.1 mg/dL (3.7-9.2)
[2024-05-05] MEDS: PIPERACILLIN-TAZOB 3.375GM 100 ML IV SCH (16:18)
[2024-05-05 16:55] VITALS: BP 119/68; PULSE 91; RESP 19; TEMP 98.2; O2SAT 96
[2024-05-05] MEDS: HYDROcodone-ACET 5/325MG TAB PO PRN (18:13)
[2024-05-05 20:00] VITALS: PULSE 91; RESP 19; O2SAT 97
[2024-05-05 21:00] VITALS: BP 135/74; PULSE 91; RESP 19; TEMP 98.3; O2SAT 97
[2024-05-06] VITALS (7 sets, daily range): BP systolic 104–134; BP diastolic 45–78; PULSE 55–97; RESP 17–20; TEMP 97.9–98.9; O2SAT 96–100
[2024-05-06] MEDS: VANCOMYCIN 1GM/200ML 200 ML IV SCH (01:27)
[2024-05-06 06:14] LABS: Basophils # (auto) 0 10 ^3/uL (0-0.2); Basophils % (auto) 0.3 % (0.0-2.0); Eosinophils # (auto) 0.2 10 ^3/uL (0-0.8); Eosinophils % (auto) 1.3 % (0.0-7.0); Hematocrit 37.7 % (41.0-53.0); Hemoglobin 12.9 g/dL (13.5-17.5); Lymphocytes % (auto) 8.7 % (10.0-50.0); Mean Corpuscular Hgb Conc. 34.1 g/dL (32.0-36.0); Mean Corpuscular Volume 93.7 fL (80.0-100.0); Monocytes % (auto) 8.1 % (0.0-12.0); Neutrophils # (auto) 9.7 10 ^3/uL (1.6-8.6); Neutrophils % (auto) 81.6 % (37.0-80.0); Platelet Count (auto) 352 10^3/uL (140-450); Red Blood Cells 4.02 10^6/uL (4.5-5.90); Red Cell Distribution Width 12.7 % (11.8-14.3); White Blood Cell 11.9 10^3/uL (4.4-10.8)
[2024-05-06 06:36] LABS: Albumin 3.9 g/dL (3.2-4.8); Alkaline Phosphatase 81 U/L (46-116); Anion Gap 10 (5-15); Aspartate Aminotransferase 8 U/L (13-40); BUN/Creatinine Ratio 17.6 (10.0-20.0); Bilirubin, Total 0.6 mg/dL (0.2-1.0); Blood Urea Nitrogen 24 mg/dL (9-23); Calcium 9.2 mg/dL (8.7-10.4); Carbon Dioxide 20 mmol/L (20-30); Chloride 105 mmol/L (98-107); Glucose 95 mg/dL (74-106); Potassium 3.6 mmol/L (3.5-5.1); Sodium 135 mmol/L (136-145); Total Protein 7.4 g/dL (5.7-8.2)
[2024-05-06 06:38] LABS: Alanine Aminotransferase < 9 U/L (7-40)
[2024-05-06] MEDS: EMPAGLIFLOZIN 10 MG TAB PO SCH (10:06)
[2024-05-06] MEDS: PANTOPRAZOLE 40 MG/10 ML VIAL INJ IV SCH (10:06)
[2024-05-06] MEDS ORDERED: ATOR40TA52 PO (13:39)
[2024-05-06] MEDS ORDERED: TIOT17SP IN (13:39)
[2024-05-06] MEDS ORDERED: NIFE1TAB31 PO (13:39)
[2024-05-06] MEDS ORDERED: CHOL500021 PO (13:39)
[2024-05-06] MEDS ORDERED: EMPA1TAB3 PO (13:39)
[2024-05-06] MEDS ORDERED: GABA-1308 PO (13:39)
[2024-05-06] MEDS ORDERED: TRAM50TA2 PO (13:39)
[2024-05-06] MEDS ORDERED: ASPI-543 PO (13:39)
[2024-05-06] MEDS ORDERED: GLIP-110 PO (13:39)
[2024-05-06] MEDS ORDERED: LISI20TA56 PO (13:39)
[2024-05-07 05:00] VITALS: BP 118/58; PULSE 86; RESP 16; TEMP 98.6; O2SAT 98
[2024-05-07 05:30] LABS: Basophils # (auto) 0 10 ^3/uL (0-0.2); Basophils % (auto) 0.3 % (0.0-2.0); Eosinophils # (auto) 0.2 10 ^3/uL (0-0.8); Eosinophils % (auto) 1.7 % (0.0-7.0); Hematocrit 37.6 % (41.0-53.0); Lymphocytes # (auto) 1.1 10 ^3/uL (0.4-5.4); Lymphocytes % (auto) 11.8 % (10.0-50.0); Mean Corpuscular Hemoglobin 32.4 pg (28.0-32.0); Mean Corpuscular Hgb Conc. 34.7 g/dL (32.0-36.0); Mean Corpuscular Volume 93.5 fL (80.0-100.0); Monocytes # (auto) 0.7 10 ^3/uL (0-1.3); Monocytes % (auto) 7.6 % (0.0-12.0); Neutrophils # (auto) 7.3 10 ^3/uL (1.6-8.6); Neutrophils % (auto) 78.6 % (37.0-80.0); Nucleated Red Blood Cells % 0.1 %; Platelet Count (auto) 349 10^3/uL (140-450); Red Blood Cells 4.02 10^6/uL (4.5-5.90); Red Cell Distribution Width 12.3 % (11.8-14.3); White Blood Cell 9.3 10^3/uL (4.4-10.8)
[2024-05-07 05:45] LABS: Alanine Aminotransferase < 9 U/L (7-40); Albumin 3.7 g/dL (3.2-4.8); Alkaline Phosphatase 71 U/L (46-116); Anion Gap 10 (5-15); Aspartate Aminotransferase 9 U/L (13-40); BUN/Creatinine Ratio 15.4 (10.0-20.0); Bilirubin, Total 0.4 mg/dL (0.2-1.0); Blood Urea Nitrogen 19 mg/dL (9-23); Calcium 9.1 mg/dL (8.7-10.4); Carbon Dioxide 19 mmol/L (20-30); Chloride 106 mmol/L (98-107); Glucose 103 mg/dL (74-106); Potassium 3.7 mmol/L (3.5-5.1); Sodium 135 mmol/L (136-145); Total Protein 7.2 g/dL (5.7-8.2)
[2024-05-07] MEDS: VANCOMYCIN 1GM/200ML 200 ML IV SCH ×2 (06:15→20:45)
[2024-05-07 08:00] VITALS: PULSE 94; RESP 18
[2024-05-07 09:00] VITALS: BP 132/76; PULSE 90; RESP 17; TEMP 98.4; O2SAT 98
[2024-05-07] MEDS: PIPERACILLIN-TAZOB 3.375GM 100 ML IV SCH (09:26)
[2024-05-07 13:00] VITALS: BP 136/66; PULSE 91; RESP 17; TEMP 98; O2SAT 97
[2024-05-07] MEDS: INSULIN LANTUS (GLARGINE) 1 /0.01ml (100units/ml) SC ONE (16:45)
[2024-05-07 17:00] VITALS: BP 135/74; PULSE 93; RESP 19; TEMP 98; O2SAT 98
[2024-05-07] MEDS: ATORVASTATIN 20 MG TAB PO SCH (20:39)
[2024-05-07] MEDS: GABAPENTIN 100 MG CAP PO SCH (20:39)
[2024-05-07 21:00] VITALS: BP 127/70; PULSE 100; RESP 19; TEMP 97.8; O2SAT 96
[2024-05-08] VITALS (7 sets, daily range): BP systolic 108–131; BP diastolic 64–75; PULSE 63–91; RESP 16–18; TEMP 97.7–98.7; O2SAT 96–98
[2024-05-08 07:41] LABS: Albumin 3.8 g/dL (3.2-4.8); Alkaline Phosphatase 74 U/L (46-116); Anion Gap 7 (5-15); Aspartate Aminotransferase < 8 U/L (13-40); BUN/Creatinine Ratio 12.7 (10.0-20.0); Blood Urea Nitrogen 16 mg/dL (9-23); Calcium 9.3 mg/dL (8.7-10.4); Carbon Dioxide 23 mmol/L (20-30); Chloride 106 mmol/L (98-107); Glucose 169 mg/dL (74-106); Potassium 3.8 mmol/L (3.5-5.1); Sodium 136 mmol/L (136-145)
[2024-05-08 07:43] LABS: Alanine Aminotransferase < 9 U/L (7-40); Bilirubin, Total 0.2 mg/dL (0.2-1.0); Total Protein 7.2 g/dL (5.7-8.2)
[2024-05-08 07:47] LABS: Basophils # (auto) 0 10 ^3/uL (0-0.2); Basophils % (auto) 0.3 % (0.0-2.0); Eosinophils # (auto) 0.2 10 ^3/uL (0-0.8); Eosinophils % (auto) 2.4 % (0.0-7.0); Hematocrit 37.2 % (41.0-53.0); Hemoglobin 13.2 g/dL (13.5-17.5); Lymphocytes # (auto) 0.9 10 ^3/uL (0.4-5.4); Lymphocytes % (auto) 11.2 % (10.0-50.0); Mean Corpuscular Hemoglobin 32.6 pg (28.0-32.0); Mean Corpuscular Hgb Conc. 35.4 g/dL (32.0-36.0); Monocytes # (auto) 0.7 10 ^3/uL (0-1.3); Monocytes % (auto) 9.1 % (0.0-12.0); Neutrophils # (auto) 6.1 10 ^3/uL (1.6-8.6); Platelet Count (auto) 351 10^3/uL (140-450); Red Blood Cells 4.04 10^6/uL (4.5-5.90); Red Cell Distribution Width 12.3 % (11.8-14.3); White Blood Cell 7.9 10^3/uL (4.4-10.8)
[2024-05-08] MEDS: ASPirin-EC 81 mg tab PO SCH (09:35)
[2024-05-08] MEDS: INSULIN LANTUS (GLARGINE) 1 /0.01ml (100units/ml) SC SCH (10:26)
[2024-05-09 01:00] VITALS: BP 124/67; PULSE 78; RESP 16; TEMP 98.1; O2SAT 97
[2024-05-09 05:00] VITALS: BP 134/78; PULSE 77; RESP 18; TEMP 97.7; O2SAT 99
[2024-05-09 06:04] LABS: Basophils # (auto) 0 10 ^3/uL (0-0.2); Basophils % (auto) 0.5 % (0.0-2.0); Eosinophils # (auto) 0.3 10 ^3/uL (0-0.8); Eosinophils % (auto) 3.9 % (0.0-7.0); Hematocrit 35.4 % (41.0-53.0); Hemoglobin 12.3 g/dL (13.5-17.5); Lymphocytes # (auto) 1.3 10 ^3/uL (0.4-5.4); Lymphocytes % (auto) 18.3 % (10.0-50.0); Mean Corpuscular Hemoglobin 32.1 pg (28.0-32.0); Mean Corpuscular Hgb Conc. 34.6 g/dL (32.0-36.0); Mean Corpuscular Volume 92.7 fL (80.0-100.0); Monocytes # (auto) 0.7 10 ^3/uL (0-1.3); Monocytes % (auto) 9.1 % (0.0-12.0); Neutrophils % (auto) 68.2 % (37.0-80.0); Nucleated Red Blood Cells % 0.1 %; Platelet Count (auto) 361 10^3/uL (140-450); Red Blood Cells 3.83 10^6/uL (4.5-5.90); Red Cell Distribution Width 12.2 % (11.8-14.3); White Blood Cell 7.3 10^3/uL (4.4-10.8)
[2024-05-09 06:19] LABS: Albumin 3.6 g/dL (3.2-4.8); Alkaline Phosphatase 66 U/L (46-116); Anion Gap 8 (5-15); Aspartate Aminotransferase 9 U/L (13-40); BUN/Creatinine Ratio 12.2 (10.0-20.0); Blood Urea Nitrogen 15 mg/dL (9-23); Carbon Dioxide 23 mmol/L (20-30); Chloride 105 mmol/L (98-107); Glucose 176 mg/dL (74-106); Potassium 3.7 mmol/L (3.5-5.1); Sodium 136 mmol/L (136-145)
[2024-05-09 06:20] LABS: Bilirubin, Total 0.2 mg/dL (0.2-1.0); Total Protein 6.9 g/dL (5.7-8.2)
[2024-05-09 06:23] LABS: Alanine Aminotransferase < 9 U/L (7-40)
[2024-05-09 08:00] VITALS: RESP 16; O2SAT 100
[2024-05-09] MEDS: BUPIVACAINE HCL 50 ML ONE (11:47)
[2024-05-09] MEDS: COLCHICINE 0.6 MG CAP PO ONE ×2 (12:45→13:45)
[2024-05-09] MEDS ORDERED: fentaNYL CITRATE 100 MCG/2 ML VL ONE (13:06)
[2024-05-09] MEDS ORDERED: MIDAZOLAM HCL 2MG/2ML 2ml VIAL (1mg/ml) ONE (13:06)
[2024-05-09] MEDS ORDERED: PROPOFOL 10 MG/ML 20 ML IV ONE (13:24)
[2024-05-09] MEDS ORDERED: LIDOCAINE 2% (LOCAL ANESTH.) PF 5ml SDV ONE (13:24)
[2024-05-09 13:26] VITALS: PULSE 80; RESP 13; O2SAT 100
[2024-05-09] MEDS ORDERED: ONDANSETRON HCL 4 MG/2 ML VIAL IV ONE (13:30)
[2024-05-09] MEDS: VANCOMYCIN 1GM/200ML 200 ML IV SCH (17:13)
[2024-05-09 20:00] VITALS: PULSE 91; RESP 16; O2SAT 98
[2024-05-09 21:00] VITALS: BP 115/55; PULSE 91; RESP 16; TEMP 98.2; O2SAT 98
[2024-05-10] VITALS (7 sets, daily range): BP systolic 128–139; BP diastolic 71–74; PULSE 79–85; RESP 16–21; TEMP 97.4–98; O2SAT 97–99
[2024-05-10 06:12] LABS: Basophils # (auto) 0 10 ^3/uL (0-0.2); Basophils % (auto) 0.6 % (0.0-2.0); Eosinophils # (auto) 0.2 10 ^3/uL (0-0.8); Eosinophils % (auto) 2.6 % (0.0-7.0); Hematocrit 38.5 % (41.0-53.0); Lymphocytes # (auto) 1.1 10 ^3/uL (0.4-5.4); Lymphocytes % (auto) 12.7 % (10.0-50.0); Mean Corpuscular Hemoglobin 31.7 pg (28.0-32.0); Mean Corpuscular Hgb Conc. 33.9 g/dL (32.0-36.0); Mean Corpuscular Volume 93.4 fL (80.0-100.0); Monocytes # (auto) 0.7 10 ^3/uL (0-1.3); Monocytes % (auto) 8.1 % (0.0-12.0); Neutrophils # (auto) 6.4 10 ^3/uL (1.6-8.6); Nucleated Red Blood Cells % 0.1 %; Platelet Count (auto) 393 10^3/uL (140-450); Red Blood Cells 4.12 10^6/uL (4.5-5.90); Red Cell Distribution Width 12.5 % (11.8-14.3); White Blood Cell 8.4 10^3/uL (4.4-10.8)
[2024-05-10 06:40] LABS: Alanine Aminotransferase 10 U/L (7-40); Albumin 3.4 g/dL (3.2-4.8); Alkaline Phosphatase 62 U/L (46-116); Anion Gap 8 (5-15); Aspartate Aminotransferase 10 U/L (13-40); BUN/Creatinine Ratio 15.3 (10.0-20.0); Blood Urea Nitrogen 15 mg/dL (9-23); Calcium 8.6 mg/dL (8.7-10.4); Carbon Dioxide 23 mmol/L (20-30); Chloride 103 mmol/L (98-107); Glucose 121 mg/dL (74-106); Magnesium 1.7 mg/dL (1.6-2.6); Potassium 3.9 mmol/L (3.5-5.1); Sodium 134 mmol/L (136-145)
[2024-05-10 06:41] LABS: Bilirubin, Total 0.2 mg/dL (0.2-1.0); Total Protein 6.5 g/dL (5.7-8.2)
[2024-05-10] MEDS ORDERED: KETOROLAC TROMETH 30 MG/ML 1ML VIAL IV ONE (16:15)
[2024-05-10] MEDS: COLCHICINE 0.6 MG CAP PO ONE (16:15)
[2024-05-11] VITALS (9 sets, daily range): BP systolic 121–146; BP diastolic 59–82; PULSE 79–95; RESP 16–80; TEMP 97.6–98.2; O2SAT 97–100
[2024-05-11 04:00] LABS: Basophils # (auto) 0.1 10 ^3/uL (0-0.2); Basophils % (auto) 0.8 % (0.0-2.0); Eosinophils # (auto) 0.3 10 ^3/uL (0-0.8); Eosinophils % (auto) 3.9 % (0.0-7.0); Hematocrit 38.6 % (41.0-53.0); Hemoglobin 13.2 g/dL (13.5-17.5); Lymphocytes # (auto) 1.9 10 ^3/uL (0.4-5.4); Lymphocytes % (auto) 24.7 % (10.0-50.0); Mean Corpuscular Hgb Conc. 34.1 g/dL (32.0-36.0); Mean Corpuscular Volume 93.8 fL (80.0-100.0); Monocytes # (auto) 0.6 10 ^3/uL (0-1.3); Monocytes % (auto) 7.8 % (0.0-12.0); Neutrophils # (auto) 4.9 10 ^3/uL (1.6-8.6); Neutrophils % (auto) 62.8 % (37.0-80.0); Nucleated Red Blood Cells % 0.1 %; Platelet Count (auto) 384 10^3/uL (140-450); Red Blood Cells 4.12 10^6/uL (4.5-5.90); Red Cell Distribution Width 12.5 % (11.8-14.3); White Blood Cell 7.7 10^3/uL (4.4-10.8)
[2024-05-11 04:14] LABS: Anion Gap 6 (5-15); Carbon Dioxide 23 mmol/L (20-30); Chloride 107 mmol/L (98-107); Potassium 3.9 mmol/L (3.5-5.1); Sodium 136 mmol/L (136-145)
[2024-05-11 04:15] LABS: Calcium 9.4 mg/dL (8.7-10.4)
[2024-05-11 04:20] LABS: BUN/Creatinine Ratio 9.3 (10.0-20.0); Blood Urea Nitrogen 11 mg/dL (9-23); Glucose 172 mg/dL (74-106); Magnesium 1.8 mg/dL (1.6-2.6)
[2024-05-11] MEDS: COLCHICINE 0.6 MG CAP PO SCH (11:02)
[2024-05-11] MEDS: MAGNESIUM SULFATE 1GM/100ML 100 ML IV ONE (11:03)
[2024-05-11] MEDS: BUPIVACAINE 0.5% P/F INJ 10 ML VIAL ONE (11:21)
[2024-05-11] MEDS ORDERED: fentaNYL CITRATE 100 MCG/2 ML VL ONE (11:54)
[2024-05-11] MEDS ORDERED: PROPOFOL 10 MG/ML 20 ML IV ONE (11:54)
[2024-05-11] MEDS ORDERED: VANCOMYCIN 1GM/200ML 200 ML IV SCH (13:00)
[2024-05-11] MEDS: ceFAZolin 1GM/50ML 50 ML IV SCH (14:24)
[2024-05-11 18:23] LABS: INR 1.02 (0.9-1.15); Prothrombin Time 10.8 sec (9.3-11.8)
[2024-05-11 19:26] LABS: Basophils # (auto) 0.1 10 ^3/uL (0-0.2); Basophils % (auto) 0.7 % (0.0-2.0); Eosinophils # (auto) 0.3 10 ^3/uL (0-0.8); Eosinophils % (auto) 3.4 % (0.0-7.0); Hematocrit 37.7 % (41.0-53.0); Hemoglobin 13.1 g/dL (13.5-17.5); Lymphocytes # (auto) 1.6 10 ^3/uL (0.4-5.4); Lymphocytes % (auto) 20.5 % (10.0-50.0); Mean Corpuscular Hemoglobin 32.2 pg (28.0-32.0); Mean Corpuscular Hgb Conc. 34.8 g/dL (32.0-36.0); Mean Corpuscular Volume 92.5 fL (80.0-100.0); Monocytes # (auto) 0.5 10 ^3/uL (0-1.3); Monocytes % (auto) 5.9 % (0.0-12.0); Neutrophils # (auto) 5.3 10 ^3/uL (1.6-8.6); Neutrophils % (auto) 69.5 % (37.0-80.0); Nucleated Red Blood Cells % 0.1 %; Platelet Count (auto) 416 10^3/uL (140-450); Red Blood Cells 4.07 10^6/uL (4.5-5.90); Red Cell Distribution Width 12.4 % (11.8-14.3); White Blood Cell 7.6 10^3/uL (4.4-10.8)
[2024-05-11 19:42] LABS: Chloride 105 mmol/L (98-107); Sodium 135 mmol/L (136-145)
[2024-05-11 19:44] LABS: Anion Gap 4 (5-15); Calcium 9.6 mg/dL (8.7-10.4); Carbon Dioxide 26 mmol/L (20-30)
[2024-05-11 19:49] LABS: BUN/Creatinine Ratio 10.7 (10.0-20.0); Blood Urea Nitrogen 13 mg/dL (9-23); Glucose 259 mg/dL (74-106)
[2024-05-12] VITALS (7 sets, daily range): BP systolic 125–144; BP diastolic 63–80; PULSE 83–91; RESP 16–20; TEMP 97.6–98.4; O2SAT 97–99
[2024-05-12] MEDS: PANTOPRAZOLE 40 MG TAB PO SCH (05:10)
[2024-05-12] MEDS ORDERED: COLC1CAP PO (11:28)
[2024-05-12] MEDS: LIDOCAINE 1% (LOCAL ANESTH.) PF 5ml SDV ID ONE (16:30)
[2024-05-12] MEDS: Juven Orange Powder PACKET 27.5gm PO SCH (18:00)
[2024-05-12] MEDS ORDERED: SODIUM CHLOR 0.9% PF (SALINE LOCK) 10ML VIAL/SYR IV SCH (22:00)
== END 2024-05-12 18:50 | disposition home or self-care (01) | DRG 314 ==
LOC: ER 22:19 → OVERFLOW 05-05 09:34 → TELE-WESTW 05-05 14:59 → WEST WING 05-06 05:33
PROVIDERS: ADMIT Internal Medicine; ATTEND Anesthesiology
PROC: 0Q9N0ZZ Drainage of Right Metatarsal, Open Approach (ICD-10-PCS; principal; 2024-05-09 13:00)
PROC: 0Q9N0ZZ Drainage of Right Metatarsal, Open Approach (ICD-10-PCS; 2024-05-11)
PROC: 02HV33Z Insertion of Infusion Device into Superior Vena Cava, Percutaneous Approach (ICD-10-PCS; 2024-05-12)
PROC: B548ZZA Ultrasonography of Superior Vena Cava, Guidance (ICD-10-PCS; 2024-05-12)
DX: E11.69 Type 2 diabetes mellitus with other specified complication (principal); M86.8X7 Other osteomyelitis, ankle and foot; N17.0 Acute kidney failure with tubular necrosis; E11.22 Type 2 diabetes mellitus with diabetic chronic kidney disease; I69.351 Hemiplegia and hemiparesis following cerebral infarction affecting right dominant side; S91.301A Unspecified open wound, right foot, initial encounter; E11.628 Type 2 diabetes mellitus with other skin complications; L03.113 Cellulitis of right upper limb; E11.40 Type 2 diabetes mellitus with diabetic neuropathy, unspecified; I12.9 Hypertensive chronic kidney disease with stage 1 through stage 4 chronic kidney disease, or unspecified chronic kidney disease; J98.11 Atelectasis; X58.XXXA Exposure to other specified factors, initial encounter; E66.3 Overweight; E11.65 Type 2 diabetes mellitus with hyperglycemia; F17.200 Nicotine dependence, unspecified, uncomplicated; M10.9 Gout, unspecified; N18.9 Chronic kidney disease, unspecified; Z85.118 Personal history of other malignant neoplasm of bronchus and lung; Z80.1 Family history of malignant neoplasm of trachea, bronchus and lung; Z79.891 Long term (current) use of opiate analgesic; Z79.899 Other long term (current) drug therapy; Y93.89 Activity, other specified; Y92.89 Other specified places as the place of occurrence of the external cause; Y99.8 Other external cause status; Z68.26 Body mass index [BMI] 26.0-26.9, adult; Z83.3 Family history of diabetes mellitus
CPT/HCPCS: 36415; 36569; 70450; 71045; 73100; 73218; 73620; 73718; 76775; 80048; 80053; 80202; 81001; 82306; 82570; 82962; 83036; 83735; 83970; 84100; 84156; 84300; 84550; 85025; 85610; 85652; 85730; 86141; 87040; 87070; 87075; 87077; 87186; 87205; 99291; G0378; J1815; J2001; J2250; J2470; J2543; J2704; J3490

== ENCOUNTER 2024-06-03 16:12 | Inpatient (IN) | payer MEDICAID ==
[~2024-06-03] VITALS: Ht 185.4 cm; Wt 90.7 kg
[~2024-06-03 16:12] MED LIST changes: +ASPI-543 PO; +ATOR40TA52 PO; +CHOL500021 PO; +COLC1CAP PO; -EMPA1TAB PO; +EMPA1TAB3 PO; +GABA-1308 PO; +GLIP-110 PO; -HYDR-4902 PO; +LISI20TA56 PO; +NIFE1TAB31 PO; +TIOT17SP IN; +TRAM50TA2 PO
[2024-06-03 17:15] VITALS: PULSE 91; RESP 12; O2SAT 98
[2024-06-03] MEDS: IOHEXOL 350 MG/ML 100ML IJ ONE (17:20)
[2024-06-03 18:44] LABS: Basophils # (auto) 0 10 ^3/uL (0-0.2); Basophils % (auto) 0.7 % (0.0-2.0); Eosinophils # (auto) 0.3 10 ^3/uL (0-0.8); Eosinophils % (auto) 4.7 % (0.0-7.0); Hemoglobin 13.3 g/dL (13.5-17.5); Lymphocytes # (auto) 1.4 10 ^3/uL (0.4-5.4); Mean Corpuscular Hemoglobin 32.5 pg (28.0-32.0); Mean Corpuscular Hgb Conc. 34.1 g/dL (32.0-36.0); Mean Corpuscular Volume 95.4 fL (80.0-100.0); Monocytes # (auto) 0.5 10 ^3/uL (0-1.3); Monocytes % (auto) 8.9 % (0.0-12.0); Neutrophils # (auto) 3.7 10 ^3/uL (1.6-8.6); Neutrophils % (auto) 61.7 % (37.0-80.0); Nucleated Red Blood Cells % 0.2 %; Platelet Count (auto) 256 10^3/uL (140-450); Red Blood Cells 4.09 10^6/uL (4.5-5.90)
[2024-06-03 18:55] LABS: Alkaline Phosphatase 91 U/L (46-116); Anion Gap 7 (5-15); Aspartate Aminotransferase 14 U/L (13-40); BUN/Creatinine Ratio 14.4 (10.0-20.0); Blood Urea Nitrogen 19 mg/dL (9-23); Calcium 9.3 mg/dL (8.7-10.4); Carbon Dioxide 22 mmol/L (20-31); Chloride 107 mmol/L (98-107); Glucose 218 mg/dL (74-106); Potassium 4.2 mmol/L (3.5-5.1); Sodium 136 mmol/L (136-145)
[2024-06-03 18:56] LABS: Albumin 3.8 g/dL (3.2-4.8); Bilirubin, Total 0.3 mg/dL (0.2-1.0); Total Protein 6.9 g/dL (5.7-8.2)
[2024-06-03 18:57] LABS: Alanine Aminotransferase < 9 U/L (7-40)
[2024-06-03 19:13] LABS: Urine Bacteria None Seen /hpf (None Seen)
[2024-06-03 19:32] LABS: Urine Blood Negative /uL (Negative); Urine Clarity Clear (Clear); Urine Color Light-Yellow (Yellow); Urine Protein, UAD 1+ (Negative); Urine Urobilinogen Normal (Negative); Urine WBC <1 /hpf (0 - 3)
[2024-06-03 20:00] VITALS: PULSE 88; RESP 17; O2SAT 98
[2024-06-03] MEDS ORDERED: ACETAMINOPHEN 325 MG TAB PO PRN (20:30)
[2024-06-03] MEDS ORDERED: DEXTROSE (50%) 50ML SYRG IV PRN (20:30)
[2024-06-03] MEDS ORDERED: ONDANSETRON HCL 4 MG/2 ML VIAL IV PRN (20:30)
[2024-06-03] MEDS: InsuLIN REG 1unit/0.01ml Soln (100units/ml) SC SCH (22:23)
[2024-06-03] MEDS: ACCU-CHEK COMFORT CURVE STRIP VI SCH (22:24)
[2024-06-03] MEDS: GABAPENTIN 100 MG CAP PO SCH (22:29)
[2024-06-03] MEDS: ATORVASTATIN 20 MG TAB PO SCH (22:29)
[2024-06-03 23:36] VITALS: BP 122/63; PULSE 90; PULSE 97; RESP 18; RESP 20; TEMP 98.6; O2SAT 93; O2SAT 94
[2024-06-04 05:40] LABS: Chloride 107 mmol/L (98-107); Sodium 140 mmol/L (136-145)
[2024-06-04 05:41] LABS: Anion Gap 6 (5-15); Carbon Dioxide 27 mmol/L (20-31)
[2024-06-04 05:42] LABS: Calcium 9.4 mg/dL (8.7-10.4)
[2024-06-04 05:46] LABS: BUN/Creatinine Ratio 15.6 (10.0-20.0); Blood Urea Nitrogen 20 mg/dL (9-23); Glucose 243 mg/dL (74-106)
[2024-06-04 09:00] VITALS: BP 130/77; PULSE 61; RESP 14; TEMP 98.1; O2SAT 100
[2024-06-04] MEDS: NIFEdipine ER 30 MG TAB PO SCH (10:00)
[2024-06-04] MEDS: LISINOPRIL 20 MG TAB PO SCH (10:00)
[2024-06-04] MEDS: EMPAGLIFLOZIN 10 MG TAB PO SCH (11:25)
[2024-06-04] MEDS: ENOXAPARIN SOD 40 MG/0.4 ML SYRINGE SC SCH (11:26)
[2024-06-04 12:40] VITALS: BP 142/79; PULSE 85; RESP 16; TEMP 97.9; O2SAT 97
[2024-06-04 17:00] VITALS: BP 105/72; PULSE 90; RESP 16; TEMP 98; O2SAT 97
[2024-06-04 21:00] VITALS: BP 142/69; PULSE 97; RESP 18; TEMP 98; O2SAT 98
[2024-06-05 01:25] VITALS: BP 112/61; PULSE 94; RESP 18; TEMP 98.2; O2SAT 97
[2024-06-05 05:00] VITALS: BP 102/48; PULSE 84; RESP 18; TEMP 98.3; O2SAT 98
[2024-06-05 09:00] VITALS: BP 128/69; PULSE 83; RESP 18; TEMP 98; O2SAT 98
[2024-06-05] MEDS ORDERED: CEFA2INJ IV (11:08)
[2024-06-05 13:00] VITALS: BP 126/75; PULSE 89; RESP 18; TEMP 98.2; O2SAT 94
[2024-06-05 16:58] VITALS: BP 92/65; PULSE 115; RESP 20; TEMP 98.6; O2SAT 97
[2024-06-05] MEDS: ASPirin 81 mg TAB PO ONE (21:10)
[2024-06-05 22:00] VITALS: BP 151/72; PULSE 89; RESP 18; TEMP 98; O2SAT 98
[2024-06-06] VITALS (7 sets, daily range): BP systolic 102–140; BP diastolic 64–76; PULSE 78–98; RESP 17–21; TEMP 97.9–98.1; O2SAT 97–98
[2024-06-06] MEDS: ASPirin 81 mg TAB PO SCH (10:32)
[2024-06-06] MEDS: ceFAZolin 1GM/50ML 50 ML IV SCH (22:24)
[2024-06-06] MEDS ORDERED: LORazepam 2MG/ML-1ML VIAL IV PRN (23:45)
[2024-06-07 01:00] VITALS: BP 131/68; PULSE 87; RESP 17; TEMP 97.3; O2SAT 100
[2024-06-07 05:00] VITALS: BP 117/67; PULSE 85; RESP 17; TEMP 97.3; O2SAT 98
[2024-06-07 06:16] LABS: LDL Cholesterol 72 mg/dL (< 100); Triglycerides 170 mg/dL (< 150)
[2024-06-07 06:17] LABS: Cholesterol 126 mg/dL (< 200); HDL Cholesterol 37 mg/dL (40-59)
[2024-06-07 06:22] LABS: Folate (Folic Acid) 15.65 ng/mL (>5.38)
[2024-06-07 06:23] LABS: Free T4 (Free Thyroxine) 0.97 ng/dL (0.89-1.76)
[2024-06-07] MEDS ORDERED: GADOTERATE MEG 10 MMOL/20ml INJ (0.5MMOL/ml) IV ONE (08:13)
[2024-06-07 09:00] VITALS: BP 128/78; PULSE 81; RESP 18; TEMP 98; O2SAT 97
[2024-06-07] MEDS ORDERED: NIFE1TAB31 PO (09:58)
[2024-06-07 10:43] VITALS: BP 124/78; PULSE 84; RESP 18; TEMP 36.7; O2SAT 97
[2024-06-07 13:00] VITALS: BP 121/73; PULSE 73; RESP 18; TEMP 98.4; O2SAT 98
== END 2024-06-07 12:45 | disposition home or self-care (01) | DRG 47 ==
LOC: ER 16:12 → OVERFLOW 20:34 → WEST WING 23:00
PROVIDERS: ADMIT Student in an Organized Health Care Education/Training Program; ATTEND Student in an Organized Health Care Education/Training Program
DX: G45.9 Transient cerebral ischemic attack, unspecified (principal); E11.621 Type 2 diabetes mellitus with foot ulcer; L97.519 Non-pressure chronic ulcer of other part of right foot with unspecified severity; E11.42 Type 2 diabetes mellitus with diabetic polyneuropathy; R47.1 Dysarthria and anarthria; I10 Essential (primary) hypertension; E78.5 Hyperlipidemia, unspecified; F17.200 Nicotine dependence, unspecified, uncomplicated; M62.542 Muscle wasting and atrophy, not elsewhere classified, left hand; M62.541 Muscle wasting and atrophy, not elsewhere classified, right hand; Z88.1 Allergy status to other antibiotic agents; Z79.82 Long term (current) use of aspirin; Z83.3 Family history of diabetes mellitus; Z80.1 Family history of malignant neoplasm of trachea, bronchus and lung; Z79.899 Other long term (current) drug therapy; I69.398 Other sequelae of cerebral infarction; I99.9 Unspecified disorder of circulatory system
CPT/HCPCS: 36415; 70450; 70496; 70551; 70553; 71045; 72142; 80048; 80053; 80061; 81001; 82607; 82746; 82962; 83605; 83735; 84439; 84443; 84484; 85025; 93005; G0378; J1815

== ENCOUNTER 2024-07-12 09:59 | Inpatient (IN) | payer MEDICAID ==
[~2024-07-12] VITALS: Ht 185.4 cm; Wt 94.2 kg
[~2024-07-12 09:59] MED LIST changes: +CEFA2INJ IV; -COLC1CAP PO; -LISI20TA56 PO
[2024-07-12 10:43] LABS: Basophils # (auto) 0 10 ^3/uL (0-0.2); Basophils % (auto) 0.5 % (0.0-2.0); Eosinophils # (auto) 0.2 10 ^3/uL (0-0.8); Eosinophils % (auto) 2.2 % (0.0-7.0); Hematocrit 41.2 % (41.0-53.0); Hemoglobin 14.1 g/dL (13.5-17.5); Lymphocytes # (auto) 1.3 10 ^3/uL (0.4-5.4); Lymphocytes % (auto) 16.1 % (10.0-50.0); Mean Corpuscular Hemoglobin 31.4 pg (28.0-32.0); Mean Corpuscular Hgb Conc. 34.1 g/dL (32.0-36.0); Mean Corpuscular Volume 92.1 fL (80.0-100.0); Monocytes # (auto) 0.7 10 ^3/uL (0-1.3); Monocytes % (auto) 8.9 % (0.0-12.0); Neutrophils # (auto) 5.7 10 ^3/uL (1.6-8.6); Neutrophils % (auto) 72.3 % (37.0-80.0); Nucleated Red Blood Cells % 0.1 %; Platelet Count (auto) 336 10^3/uL (140-450); Red Blood Cells 4.48 10^6/uL (4.5-5.90); Red Cell Distribution Width 13.1 % (11.8-14.3); White Blood Cell 7.9 10^3/uL (4.4-10.8)
[2024-07-12 10:53] LABS: Chloride 104 mmol/L (98-107); Potassium 5.3 mmol/L (3.5-5.1); Sodium 137 mmol/L (136-145)
[2024-07-12 10:54] LABS: Anion Gap 2 (5-15); Calcium 10.3 mg/dL (8.7-10.4); Carbon Dioxide 31 mmol/L (20-31)
[2024-07-12 10:59] LABS: Glucose 122 mg/dL (74-106)
[2024-07-12 11:00] LABS: BUN/Creatinine Ratio 11.2 (10.0-20.0); Blood Urea Nitrogen 15 mg/dL (9-23)
--- NOTE | 2024-07-12 11:24 | ED.PDOC ---
History of Present Illness HPI Comments 48 y/o M, with a Hx of lung tumor s/p thoracotomy, CVA w/right-sided residual deficits, DM, HLD, dysarthria, right foot ulcer wound s/p Sx, and nicotine vape use, presents with c/o non-healing right foot ulcer wound, today. Patient endorses on his hydrochloric area supervisor sending the patient for further workup and surgery after being evaluated, earlier today, for non-healing wound to his right foot. Patient denies having any pain, numbness, tingling, fever, chills, or other associated symptoms or modifiers at this time. Chief Complaint: Wound Check Time Seen by MD: 10:30 Reviewed Notes: Nurses Notes, Medications, Allergies Allergies: Coded Allergies: Vancomycin (Verified Allergy, Unknown, 06/03/24) Home Meds Active Scripts Nifedipine (Nifedipine Er) 30 Mg Tab, 30 MG PO DAILY for 30 Days, #30 TAB Prov:DEDE DUDLEY MD 06/07/24 Reported Medications Cefazolin Sodium (Cefazolin) 2 Gm Inj, 1 GM IV Q8HR, INJ 06/05/24 Glipizide (Glipizide Er) 5 Mg Tab, 5 MG PO DAILY, MG 05/06/24 Aspirin (Aspir-Low) 81 Mg Tab, 81 MG PO DAILY, MG 05/06/24 Atorvastatin Calcium (ATORVASTATIN CALCIUM) 40 Mg Tab, 40 MG PO DAILY, TAB 05/06/24 Empagliflozin (Jardiance) 25 Mg Tab, 25 MG PO DAILY, TAB 05/06/24 Cholecalciferol (VITAMIN D) 5,000 Unit Tab, 5000 UNIT PO DAILY, TAB 05/06/24 Tramadol Hcl (Tramadol Hcl) 50 Mg Tab, 50 MG PO DAILY PRN for PAIN SCALE 1 THRU 6, MG 05/06/24 Gabapentin (Gabapentin) 100 Mg Cap, 100 MG PO TID 05/06/24 Tiotropium Perry Monohydrate (Spiriva Respimat) 2.5 Mcg/Act Spr, 2 PUFF IN DAILY, SPRAY 05/06/24 Information Source: Patient, Spouse Mode of Arrival: Ambulatory Severity: Moderate Timing: Hours Duration: Since onset Prehospital treatment: None Past Medical History PAST MEDICAL HISTORY: Cancer (lung tumor ), CVA (w/right-sided residual deficits), DM, High Lipids Past Medical History (Other): dysarthria, right foot ulcer wound Surgical History (Other): thoracotomy for lung tumor resection, right foot Sx Family History Family History: Unknown Social History Smoker: Other (nicotine vape use ) Alcohol: Denies ETOH Use Drugs: Denies Drug Use Lives In: Home Constitutional: denies: chills, diaphoresis, fatigue, fever, malaise, sweats, weakness, others EENTM: denies: blurred vision, double vision, ear bleeding, ear discharge, ear drainage, ear pain, ear ringing, eye pain, eye redness, hearing loss, mouth pain, mouth swelling, nasal discharge, nose bleeding, nose congestion, nose pain, photophobia, tearing, throat pain, throat swelling, voice changes, others Respiratory: denies: cough, hemoptysis, orthopnea, SOB at rest, shortness of breath, SOB with excertion, stridor, wheezing, others Cardiovascular: denies: chest pain, dizzy spells, diaphoresis, Dyspnea on exertion, edema, irregular heart beat, left arm pain, lightheadedness, palpitations, PND, syncope, others Gastrointestinal: denies: abdomen distended, abdominal pain, blood streaked bowels, constipated, diarrhea, dysphagia, difficulty swallowing, hematemesis, melena, nausea, poor appetite, poor fluid intake, rectal bleeding, rectal pain, vomiting, others Genitourinary: denies: burning, dysuria, flank pain, frequency, hematuria, incontinence, penile discharge, penile sore, pain, testicle pain, testicle swelling, urgency, others Neurological: denies: dizziness, fainting, headache, left sided numbness, left sided weakness, numbness, paresthesia, pre-existing deficit, right sided numbness, right sided weakness, seizure, speech problems, tingling, tremors, weakness, others Musculoskeletal: denies: back pain, gout, joint pain, joint swelling, muscle pain, muscle stiffness, neck pain, others Integumetry: reports: wounds (right foot wound ); denies: bruises, change in color, change in hair/nails, dryness, laceration, lesions, lumps, rash, others Allergic/Immunocompromised: denies: Difficulty Healing, Frequent Infections, Hives, Itching, others Hematologic/Lymphatic: denies: anemia, blood clots, easy bleeding, easy bruising, swollen glands, others Endocrine: denies: excessive hunger, excessive sweating, excessive thirst, excessive urination, flushing, intolerance to cold, intolerance to heat, unexplained weight gain, unexplained weight loss, others Psychiatric: denies: anxiety, bipolar disorder, depression, hopeless, panic disorder, schizophrenia, sleepless, suicidal, others All Other Systems: Reviewed and Negative Physical Exam General Appearance: Moderate Distress HEENT: Normal ENT Inspection, Pharynx Normal, TMs Normal Neck: Full Range of Motion, Non-Tender, Normal, Normal Inspection Respiratory: Chest Non-Tender, Lungs Clear, No Accessory Muscle Use, No Respiratory Distress, Normal Breath Sounds Cardiovascular: No Edema, No JVD, No Murmur, No Gallop, Normal Peripheral Pulses, Regular Rate/Rhythm Breast Exam: Deferred Gastrointestinal: No Organomegaly, Non Tender, No Pulsatile Mass, Normal Bowel Sounds, Soft Genitalia: Deferred Pelvic: Deferred Rectal: Deferred Extremities: No calf tenderness, Normal capillary refill, Normal inspection, Normal range of motion, Non-tender, No pedal edema Musculoskeletal : Apperance: Normal Neurologic: Alert, miller wood flour II-XII nml as Tested, No Motor Deficits, Normal Affect, Normal Mood, No Sensory Deficits Cerebellar Function: Normal Reflexes: Normal Skin: Wounds (Right foot) Peripheral Pulses: 3+ Radial (R), 3+ Radial (L) Lymphatic: No Adenopathy Was a procedure done? Was a procedure done?: No Differential Dx Considerations may include: non-healing diabetic food wound X-Ray, Labs, Meds, VS Vital Signs Date Time Temp Pulse Resp B/P (MAP) Pulse Ox O2 Delivery O2 Flow Rate FiO2 07/12/24 10:10 97.5 105 16 126/79 (95) 99 Lab Test 07/12/24 10:29 Range/Units White Blood Count 7.9 4.4-10.8 10^3/uL Red Blood Count 4.48 L 4.5-5.90 10^6/uL Hemoglobin 14.1 13.5-17.5 g/dL Hematocrit 41.2 41.0-53.0 % Mean Corpuscular Volume 92.1 80.0-100.0 fL Mean Corpuscular Hemoglobin 31.4 28.0-32.0 pg Mean Corpuscular Hemoglobin Concent 34.1 32.0-36.0 g/dL Red Cell Distribution Width 13.1 11.8-14.3 % Platelet Count 336 140-450 10^3/uL Mean Platelet Volume 6.8 L 6.9-10.8 fL Neutrophils (%) (Auto) 72.3 37.0-80.0 % Lymphocytes (%) (Auto) 16.1 10.0-50.0 % Monocytes (%) (Auto) 8.9 0.0-12.0 % Eosinophils (%) (Auto) 2.2 0.0-7.0 % Basophils (%) (Auto) 0.5 0.0-2.0 % Neutrophils # (Auto) 5.7 1.6-8.6 10 ^3/uL Lymphocytes # (Auto) 1.3 0.4-5.4 10 ^3/uL Monocytes # (Auto) 0.7 0-1.3 10 ^3/uL Eosinophils # (Auto) 0.2 0-0.8 10 ^3/uL Basophils # (Auto) 0 0-0.2 10 ^3/uL Nucleated Red Blood Cells 0.1 % Sodium Level 137 136-145 mmol/L Potassium Level 5.3 H 3.5-5.1 mmol/L Chloride Level 104 98-107 mmol/L Carbon Dioxide Level 31 20-31 mmol/L Anion Gap 2 L 5-15 Blood Urea Nitrogen 15 9-23 mg/dL Creatinine 1.34 H 0.700-1.30 mg/dL Glomerular Filtration Rate Calc 66 >90 mL/min BUN/Creatinine Ratio 11.2 10.0-20.0 Serum Glucose 122 H 74-106 mg/dL Calcium Level 10.3 8.7-10.4 mg/dL Patient alert. Has a right foot wound. Potassium elevated. Vitals stable. Hyperkalemia treatment. His primary care physician had sent the patient for admission for debridement of the foot. WBC within normal limits. Hemoglobin within normal limits. Establish intravenous access. Was given fluids. Reviewed his previous visit. Explained to the patient. Continue cardiac monitoring. Time of 1ST Reevaluation: 11:00 Reevaluation 1ST: Unchanged Patient Education/Counseling: Diagnosis, Treatment Family Education/Counseling: No Family Present Departure 1 Departure Time of Disposition: 12:30 Impression: Primary Impression: Osteomyelitis of foot Qualified Codes: M86.9 - Osteomyelitis, unspecified Additional Impression: Uncontrolled diabetes mellitus Qualified Codes: E13.65 - Other specified diabetes mellitus with hyperglycemia Disposition: ADMITTED INPATIENT Admit to: Med Surg Condition: Guarded Critical Care Note Critical Care Time?: Yes (45 min-critical care time only) Stability Stability form required: No Heart Score Heart Score: Heart Score Response (Comments) Value History N/A 0 EKG N/A 0 Age N/A 0 Risk Factors N/A 0 Troponin N/A 0 Total 0 I personally scribed for OFE EATON MD ([email or web address]) on 07/12/24 at 11:24. Electronically submitted by Sourav Landaverde ([email or web address]). OFE EATON MD Jul 12, 2024 11:24
[2024-07-12] MEDS: SODIUM CHLORIDE 0.9% 1,000 ML IV ONE ×2 (12:45)
[2024-07-12] MEDS ORDERED: HYDROcodone-ACET 5/325MG TAB PO PRN (16:30)
[2024-07-12] MEDS ORDERED: ONDANSETRON HCL 4 MG/2 ML VIAL IV PRN (16:30)
[2024-07-12] MEDS ORDERED: DEXTROSE (50%) 50ML SYRG IV PRN (17:30)
--- NOTE | 2024-07-12 17:42 | DVHHP2 ---
History of Present Illness Reason for Visit: Right nonhealing foot wound History of Present Illness 48-year-old male presented to the ED after being sent by his activity leader for further workup, IV antibiotics and surgery of nonhealing wound to the right foot. Podiatry consulted. Patient denies chest pain, headache, dizziness, d iaphoresis, shortness of breath, abdominal pain, no nausea, vomiting, fever, or chills endorsed by the patient. Patient was admitted for further evaluation medical management. Past Medical History Cancer (lung tumor ), CVA (w/right-sided residual deficits), DM, High Lipids, dysarthria, right foot ulcer wound Past Surgical History thoracotomy for lung tumor resection, right foot Sx Family History Reviewed noncontributory to the management of this case Smoke: <1 pack per day (atient vapes) ALCOHOL: none Drugs: None Lives: with Family Past Social History Nicotine, patient vapes Review of Systems Constitutional: No: Fever, Chills, Sweats, Weakness, Malaise, Other Eyes: No: Pain, Vision change, Conjunctivae inflammation, Eyelid inflammation, Other, Redness ENT: No: Ear pain, Ear discharge, Nose pain, Nose discharge, Nose congestion, Mouth pain, Mouth swelling, Throat pain, Throat swelling, Other Respiratory: No: Cough, Dry, Shortness of breath, SOB with excertion, Wheezing, Hemoptysis, Pleuritic Pain, Sputum, Wheezing, Other Cardiovascular: No: Chest Pain, Palpitations, Orthopnea, Paroxysmal Noc. Dys pnea, Edema, Lt Headedness, Other Gastrointestinal: No: Nausea, Vomiting, Abdominal Pain, Diarrhea, Constipation, Melena, Hematochezia, Other Genitourinary: No Dysuria, No Frequency, No Incontinence, No Hematuria, No Retention, No Other Musculoskeletal: foot pain (Patient endorses bilateral foot pain); No: other, neck pain, shoulder pain, arm pain, back pain, hand pain, leg pain Skin: No: Rash, Lesions, Jaundice, Bruising, Other Neurological: No: Weakness, Numbness, Incoordination, Change in speech, Confusion, Seizures, Other Allergies: Coded Allergies: Vancomycin (Verified Allergy, Unknown, 06/03/24) Medications Current Medications Medications Dose Ordered Sig/Fransico Route Start Time Stop Time Status Last Admin Dose Admin Acetaminophen/ Hydrocodone Bitart 1 tab Q4HP PRN PO 11/12/24 16:30 Ondansetron HCl 4 mg Q4HP PRN IV 07/12/24 16:30 Morphine Sulfate 2 mg Q4HPRN PRN IV 07/12/24 16:30 Piperacillin Sod/ Tazobactam Sod 100 ml @ 25 mls/hr Q8HR IV 07/12/24 22:00 Exam Vital Signs Vital Signs Date Time Temp Pulse Resp B/P (MAP) Pulse Ox O2 Delivery O2 Flow Rate FiO2 07/12/24 10:10 97.5 105 16 126/79 (95) 99 General Appearance: Alert, Oriented X3, Cooperative, No acute distress HEENT: Atraumatic, PERRLA, EOMI, Mucous membr. moist/pink Respiratory: Clear to auscultation, Normal air movement Cardiovascular: Regular rate, Normal S1, Normal S2, No murmurs Abdominal: Normal bowel sounds, Soft, No tenderness, No hepatospenomegaly, No masses Extremities: No clubbing, No cyanosis, No edema, Normal pulses, Other (Bilateral +1 pedal edema. Right foot wound) Skin: No rashes, No significant lesion Neuro: Normal gait, Normal speech, Strength at 5/5 X4 ext, Normal tone, Sensation intact, Cranial nerves 3-12 NL, Reflexes 2+ Psych/Mental Status: Mental status NL, Mood NL Labs/Xrays Labs, imaging and ED notes reviewed Labs Test 07/12/24 10:29 Range/Units White Blood Count 7.9 4.4-10.8 10^3/uL Red Blood Count 4.48 L 4.5-5.90 10^6/uL Hemoglobin 14.1 13.5-17.5 g/dL Hematocrit 41.2 41.0-53.0 % Mean Corpuscular Volume 92.1 80.0-100.0 fL Mean Corpuscular Hemoglobin 31.4 28.0-32.0 pg Mean Corpuscular Hemoglobin Concent 34.1 32.0-36.0 g/dL Red Cell Distribution Width 13.1 11.8-14.3 % Platelet Count 336 140-450 10^3/uL Mean Platelet Volume 6.8 L 6.9-10.8 fL Neutrophils (%) (Auto) 72.3 37.0-80.0 % Lymphocytes (%) (Auto) 16.1 10.0-50.0 % Monocytes (%) (Auto) 8.9 0.0-12.0 % Eosinophils (%) (Auto) 2.2 0.0-7.0 % Basophils (%) (Auto) 0.5 0.0-2.0 % Neutrophils # (Auto) 5.7 1.6-8.6 10 ^3/uL Lymphocytes # (Auto) 1.3 0.4-5.4 10 ^3/uL Monocytes # (Auto) 0.7 0-1.3 10 ^3/uL Eosinophils # (Auto) 0.2 0-0.8 10 ^3/uL Basophils # (Auto) 0 0-0.2 10 ^3/uL Nucleated Red Blood Cells 0.1 % Sodium Level 137 136-145 mmol/L Potassium Level 5.3 H 3.5-5.1 mmol/L Chloride Level 104 98-107 mmol/L Carbon Dioxide Level 31 20-31 mmol/L Anion Gap 2 L 5-15 Blood Urea Nitrogen 15 9-23 mg/dL Creatinine 1.34 H 0.700-1.30 mg/dL Glomerular Filtration Rate Calc 66 >90 mL/min BUN/Creatinine Ratio 11.2 10.0-20.0 Serum Glucose 122 H 74-106 mg/dL Calcium Level 10.3 8.7-10.4 mg/dL Assessment/Plan Assessment/Plan Right foot, nonhealing wound Admit to medical/surgical Consult podiatry Ordered IV antibiotics Chronic hyperlipidemia Continue home meds chronic hypertension continue home meds Diabetes mellitus type 2 Accu-Cheks a.c. HS Moderate insulin sliding scale FEN/PPX GI and VTE prophylaxis not indicated Consistent carb diet Plan discussed with: Patient My Orders Orders - AKIRA JUAN Procedure Category Date Status Time Admit ADMIT 07/12/24 Transmitted 16:28 Code Status CODE 07/12/24 Transmitted 16:28 Vital Signs [facility] 07/12/24 In Process 16:28 Review Orders With CHRYSTAL 07/12/24 In Process Adm. 16:28 Bedside Commode [facility] 07/12/24 In Process 16:28 Consistent DIET 07/12/24 [facility]Diabetes Dinner Notify Of Changes CHRYSTAL 07/12/24 In Process From Base 16:28 Advance Directive [facility] 07/12/24 In Process 16:28 Basic Metabolic Panel LAB 07/13/24 Verified 04:00 Complete Blood Count LAB 07/13/24 Verified 04:00 Patient Condition ORDERS 07/12/24 Transmitted 16:28 Allergies CHRYSTAL 07/12/24 In Process 16:28 Hydrocodone-Acet PHA 07/12/24 In Process 5/325mg Tab ([place] 16:30 Ondansetron Hcl PHA 07/12/24 In Process (Zofran) 16:30 Morphine Sulfate PHA 07/12/24 In Process Injection 16:30 *Podiatry Consult CONS 07/12/24 Transmitted Musson(Dvmg) 16:28 Piperacillin-Tazob PHA 07/12/24 In Process 3.375gm (Zosyn 3.375g 22:00 Prothrombin Time W/ LAB 07/12/24 Logged INR 16:34 Date of Service: Jul 12, 2024 Billing Provider: AKIRA JAUN Common Visit Codes: [id number] INP/OBS CARE (HIGH) AKIRA JUAN Jul 12, 2024 17:42
[2024-07-12 18:31] LABS: Prothrombin Time 10.6 sec (9.3-11.8)
[2024-07-12 20:28] VITALS: PULSE 101; RESP 14; O2SAT 98
[2024-07-12] MEDS ORDERED: PIPERACILLIN-TAZOB 3.375GM 100 ML IV SCH (22:00)
[2024-07-12] MEDS: ACCU-CHEK COMFORT CURVE STRIP VI SCH (22:13)
[2024-07-12] MEDS: PIPERACILLIN-TAZOB 3.375GM 100 ML IV ONE (22:17)
[2024-07-12] MEDS: GABAPENTIN 100 MG CAP PO SCH (22:18)
[2024-07-12] MEDS: ATORVASTATIN 20 MG TAB PO SCH (22:18)
[2024-07-12] MEDS: InsuLIN REG 1unit/0.01ml Soln (100units/ml) SC SCH (22:29)
--- NOTE | 2024-07-12 22:48 | DVH ---
CLINICAL INDICATION: r/o OM TECHNIQUE: 3 radiographic views of the right foot were obtained. Comparison: XY R FOOT 2 VIEW XRAY on DOS: 05/05/24, XY R WRIST 2 VIEW XRAY on DOS: 05/05/24 FINDINGS/IMPRESSION: Dislocation the 5th metatarsophalangeal joint with fracture to the lateral aspect proximal phalanx . Osteopenia of the distal 5th metatarsal. Can not exclude osteomyelitis in this area. The visualized joint space is well maintained. The alignment is anatomical. There is no radiopaque foreign body.
[2024-07-13] VITALS (9 sets, daily range): BP systolic 123–150; BP diastolic 68–87; PULSE 86–109; RESP 12–21; TEMP 97.7–98.3; O2SAT 95–100
[2024-07-13] MEDS: MORPHINE SULFATE INJ 2 MG/ml SYRG IV PRN (03:24)
[2024-07-13] MEDS: InsuLIN REG 1unit/0.01ml Soln (100units/ml) SC SCH (06:33)
[2024-07-13] MEDS: PIPERACILLIN-TAZOB 3.375GM 100 ML IV SCH (06:33)
[2024-07-13 06:44] LABS: Basophils # (auto) 0 10 ^3/uL (0-0.2); Basophils % (auto) 0.8 % (0.0-2.0); Eosinophils # (auto) 0.3 10 ^3/uL (0-0.8); Hematocrit 35.5 % (41.0-53.0); Lymphocytes # (auto) 1.2 10 ^3/uL (0.4-5.4); Lymphocytes % (auto) 22.1 % (10.0-50.0); Mean Corpuscular Hgb Conc. 33.8 g/dL (32.0-36.0); Mean Corpuscular Volume 91.7 fL (80.0-100.0); Monocytes # (auto) 0.5 10 ^3/uL (0-1.3); Monocytes % (auto) 9.9 % (0.0-12.0); Neutrophils # (auto) 3.4 10 ^3/uL (1.6-8.6); Neutrophils % (auto) 62.2 % (37.0-80.0); Platelet Count (auto) 298 10^3/uL (140-450); Red Blood Cells 3.88 10^6/uL (4.5-5.90); Red Cell Distribution Width 12.9 % (11.8-14.3); White Blood Cell 5.5 10^3/uL (4.4-10.8)
[2024-07-13 06:53] LABS: Anion Gap 7 (5-15); Carbon Dioxide 23 mmol/L (20-31); Chloride 108 mmol/L (98-107); Potassium 4.1 mmol/L (3.5-5.1); Sodium 138 mmol/L (136-145)
[2024-07-13 06:55] LABS: Calcium 9.2 mg/dL (8.7-10.4)
[2024-07-13 06:59] LABS: BUN/Creatinine Ratio 14.8 (10.0-20.0); Blood Urea Nitrogen 17 mg/dL (9-23); Glucose 123 mg/dL (74-106)
[2024-07-13 07:08] LABS: INR 0.97 (0.9-1.15); Partial Thromboplastin Time 35.5 SEC (24.5-34.5); Prothrombin Time 10.3 sec (9.3-11.8)
[2024-07-13 08:28] LABS: Urine Bacteria None Seen /hpf (None Seen); Urine WBC None Seen /hpf (0 - 3)
[2024-07-13 08:39] LABS: Urine Blood Negative /uL (Negative); Urine Clarity Clear (Clear); Urine Color Light-Yellow (Yellow); Urine Protein, UAD 1+ (Negative); Urine Specific Gravity 1.021 (1.001-1.035); Urine Urobilinogen Normal (Negative)
[2024-07-13] MEDS: ASPirin-EC 81 mg tab PO SCH (11:16)
[2024-07-13] MEDS: NIFEdipine ER 30 MG TAB PO SCH (11:17)
--- NOTE | 2024-07-13 12:02 | DVHINCON2 ---
Date Seen: Jul 13, 2024 Reason for Consultation Right foot ulcer History of Present Illness 48-year-old male presented to the ED after being sent by his public health service officer for further workup, IV antibiotics and surgery of nonhealing wound to the right foot. Podiatry consulted. Patient denies chest pain, headache, dizziness, diaphoresis, shortness of breath, abdominal pain, no nausea, vomiting, fever, or chills endorsed by the patient. Patient was admitted for further evaluation medical management. Past Medical History See H&P Past Surgical History See H&P Family History: Diabetes mellitus G8 MOTHER (type 2) FH: lung cancer G8 FATHER (Patient states father no longer has lung cancer) Allergies: Coded Allergies: Vancomycin (Verified Allergy, Unknown, 06/03/24) Home Meds Active Scripts Nifedipine (Nifedipine Er) 30 Mg Tab, 30 MG PO DAILY for 30 Days, #30 TAB Prov:DEDE DUDLEY MD 06/07/24 Reported Medications Cefazolin Sodium (Cefazolin) 2 Gm Inj, 1 GM IV Q8HR, INJ 06/05/24 Glipizide (Glipizide Er) 5 Mg Tab, 5 MG PO DAILY, MG 05/06/24 Aspirin (Aspir-Low) 81 Mg Tab, 81 MG PO DAILY, MG 05/06/24 Atorvastatin Calcium (ATORVASTATIN CALCIUM) 40 Mg Tab, 40 MG PO DAILY, TAB 05/06/24 Empagliflozin (Jardiance) 25 Mg Tab, 25 MG PO DAILY, TAB 05/06/24 Cholecalciferol (VITAMIN D) 5,000 Unit Tab, 5000 UNIT PO DAILY, TAB 05/06/24 Tramadol Hcl (Tramadol Hcl) 50 Mg Tab, 50 MG PO DAILY PRN for PAIN SCALE 1 THRU 6, MG 05/06/24 Gabapentin (Gabapentin) 100 Mg Cap, 100 MG PO TID 05/06/24 Tiotropium Frederic Monohydrate (Spiriva Respimat) 2.5 Mcg/Act Spr, 2 PUFF IN DAILY, SPRAY 05/06/24 Current Medications Current Medications Medications (Trade) Dose Ordered Sig/Fransico Route PRN Reason Start Time Stop Time Status Last Admin Acetaminophen/ Hydrocodone Bitart ([place] 5/325MG Tab) 1 tab Q4HP PRN PO MODERATE PAIN (4-6 PAIN SCALE) 07/12/24 16:30 Ondansetron HCl (Zofran) 4 mg Q4HP PRN IV NAUSEA / VOMITING 07/12/24 16:30 Morphine Sulfate 2 mg Q4HPRN PRN IV SEVERE PAIN (7-10 PAIN SCALE) 07/12/24 16:30 07/13/24 03:24 Piperacillin Sod/ Tazobactam Sod 100 ml @ 25 mls/hr Q8HR IV 07/12/24 22:00 07/13/24 00:29 DC Diagnostic Test (Pha) (Accu-Chek Comfort Curve T) 1 strip ACHS 07/12/24 22:00 07/13/24 11:17 Insulin Human Regular (InsuLIN R) HS SC 07/12/24 22:00 07/12/24 22:29 Insulin Human Regular (InsuLIN R) AC SC 07/13/24 07:00 Dextrose 50 ml UD PRN IV Blood Sugar LESS THAN 60 07/12/24 17:30 Aspirin (Ecotrin Enteric Coated Tablet) 81 mg DAILY PO 07/13/24 10:00 07/13/24 11:16 Gabapentin (Neurontin Capsule) 100 mg TID PO 07/12/24 22:00 07/13/24 06:33 Nifedipine (Procardia Xl (Time-Release)) 30 mg DAILY PO 07/13/24 10:00 07/13/24 11:17 Atorvastatin Calcium (Lipitor) 40 mg HS PO 07/12/24 22:00 07/12/24 22:18 Piperacillin Sod/ Tazobactam Sod 100 ml @ 25 mls/hr Q8HR IV 07/13/24 04:00 07/13/24 11:35 Vital Signs Vital Signs Date Time Temp Pulse Resp B/P (MAP) Pulse Ox O2 Delivery O2 Flow Rate FiO2 07/13/24 11:17 150/86 07/13/24 08:40 97.9 95 20 95 97.9 07/13/24 08:00 Room Air* 0 21 Physical Exam DERMATOLOGIC EXAM: - Skin is dry and cool to the touch dry bilaterally. - Nails 1-5 of the bilateral foot are thickened, discolored, dystrophic, and tender to palpate with subungual debris - Hair loss noted to bilateral feet Wound #1: Location: Right lateral foot Measurements: Length 2 cm x width 1 cm x depth when cm. Wound margins: Hyperkeratotic. Wound base: Full thickness. General Appearance: Healthy and bleeding. Probes to Bone: Yes Purulent drainage: Yes Serous drainage: No Erythema: To the periwound VASCULAR EXAM: - DP and PT pulses are palpable bilaterally. 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 - Feet are cool to touch compared to lower legs bilaterally. NEUROLOGIC EXAM: - Normal light touch sensation to the superficial peroneal, deep peroneal, sural, saphenous, and tibial nerve branches. - Protective sensation is diminished as tested with a 5.07 10g [place] bilaterally. MUSCULOSKELETAL EXAM: - No gross deformities - Muscle strength is 5/5 and active motion is pain-free and symmetrical bilaterally - No pain or crepitation with passive range of motion bilaterally to all major pedal joints Labs/Diagnostic Data Labs Test 07/13/24 11:21 07/13/24 08:15 07/13/24 06:15 Range/Units POC Glucose 95 70-106 mg/dl Urine Color Light-yellow Yellow Urine Clarity Clear Clear Urine pH 6.0 5.0-9.0 Urine Specific [place] 1.021 1.001-1.035 Urine Protein 1+ H Negative Urine Ketones Negative Negative Urine Blood Negative Negative /uL Urine Nitrite Negative Negative Urine Bilirubin Negative Negative Urine Urobilinogen Normal Negative mg/dL Urine Leukocyte Esterase Negative Negative /uL Urine RBC 3 0 - 3 /hpf Urine WBC None seen 0 - 3 /hpf Urine Squamous Epithelial Cells None seen <5 /hpf Urine Bacteria None seen None Seen /hpf Urine Glucose 4+ H Normal mg/dL White Blood Count 5.5 # 4.4-10.8 10^3/uL Red Blood Count 3.88 L 4.5-5.90 10^6/uL Hemoglobin 12.0 L 13.5-17.5 g/dL Hematocrit 35.5 #L 41.0-53.0 % Mean Corpuscular Volume 91.7 80.0-100.0 fL Mean Corpuscular Hemoglobin 31.0 28.0-32.0 pg Mean Corpuscular Hemoglobin Concent 33.8 32.0-36.0 g/dL Red Cell Distribution Width 12.9 11.8-14.3 % Platelet Count 298 140-450 10^3/uL Mean Platelet Volume 6.9 6.9-10.8 fL Neutrophils (%) (Auto) 62.2 37.0-80.0 % Lymphocytes (%) (Auto) 22.1 10.0-50.0 % Monocytes (%) (Auto) 9.9 0.0-12.0 % Eosinophils (%) (Auto) 5.0 0.0-7.0 % Basophils (%) (Auto) 0.8 0.0-2.0 % Neutrophils # (Auto) 3.4 1.6-8.6 10 ^3/uL Lymphocytes # (Auto) 1.2 0.4-5.4 10 ^3/uL Monocytes # (Auto) 0.5 0-1.3 10 ^3/uL Eosinophils # (Auto) 0.3 0-0.8 10 ^3/uL Basophils # (Auto) 0 0-0.2 10 ^3/uL Nucleated Red Blood Cells 0.0 % Prothrombin Time 10.3 9.3-11.8 sec Prothrombin Time INR 0.97 0.9-1.15 Activated Partial Thromboplast Time 35.5 H 24.5-34.5 SEC Sodium Level 138 136-145 mmol/L Potassium Level 4.1 3.5-5.1 mmol/L Chloride Level 108 H 98-107 mmol/L Carbon Dioxide Level 23 20-31 mmol/L Anion Gap 7 5-15 Blood Urea Nitrogen 17 9-23 mg/dL Creatinine 1.15 0.700-1.30 mg/dL Glomerular Filtration Rate Calc 79 >90 mL/min BUN/Creatinine Ratio 14.8 10.0-20.0 Serum Glucose 123 H 74-106 mg/dL Calcium Level 9.2 8.7-10.4 mg/dL Problems(with codes): (1) Acute kidney injury (2) Open wound of right foot (3) Cellulitis of right wrist (4) Lethargic (5) Hemoptysis, unspecified (6) Cavitary lesion of lung (7) Slurred speech (8) Confusion (9) Stroke-like symptoms (10) Uncontrolled diabetes mellitus (11) Osteomyelitis of foot Plan/Recommendation ASSESSMENT: Patient is a 48 year old who was seen in clinic for DM ulcer care PLAN: - The patients chart was reviewed, clinical findings were discussed with the p atient, the etiologies of the conditions were discussed in detail, and a treatment plan was agreed to at this time, with both oral and written instructions provided. - reviewed x-rays with the patient - discussed that the patient will need an I and D performed today and likely on Thursday depending on what is found - we will continue to have him on IV antibiotics - cultures will be taken the OR today - NPO since midnight last night - patient can weightbear as tolerated in a postop shoe All questions were answered and concerns addressed to the patient's satisfaction. The patient was given the phone number to the clinic and was told how to make contact with the clinic should any concerns or questions arise. Patient understands that if any questions or concerns arise prior to the next appointment, we should be contacted immediately. FOLLOW-UP: Continue to follow while inpatient Plan discussed with: Patient Date of Service: Jul 13, 2024 Billing Provider: MOLLY PALACIOS DPM Common Visit Codes: [id number] INP/OBS CARE(MOD) MOLLY PALACIOS DPM Jul 13, 2024 12:02
[2024-07-13] MEDS ORDERED: MIDAZOLAM HCL 2MG/2ML 2ml VIAL (1mg/ml) ONE (12:24)
[2024-07-13] MEDS ORDERED: fentaNYL CITRATE 100 MCG/2 ML VL ONE (12:24)
[2024-07-13] MEDS ORDERED: PROPOFOL 10 MG/ML 20 ML IV ONE (12:25)
[2024-07-13] MEDS ORDERED: DexAMETHasone SOD PHOS 10MG/1ML VIAL INJ ONE (12:25)
[2024-07-13] MEDS: BUPIVACAINE 0.5% P/F INJ 10 ML VIAL ONE (12:25)
[2024-07-13] MEDS ORDERED: ePHEDrine SULFATE 50 MG/ML AMP IV PRN (13:15)
[2024-07-13] MEDS ORDERED: MORPHINE SULFATE 4 MG/ML SYR/VIAL IV PRN (13:15)
[2024-07-13] MEDS ORDERED: hydrALAZINE HCL 20 MG/ML VL IV PRN (13:15)
[2024-07-13] MEDS ORDERED: HYDROmorphone HCL 2 MG/ML VL/or syr IV PRN (13:15)
[2024-07-13] MEDS ORDERED: MIDAZOLAM HCL 2MG/2ML 2ml VIAL (1mg/ml) IV PRN (13:15)
--- NOTE | 2024-07-13 14:04 | DVHOP2 ---
Operative Report - 2 Report Details Date: 07/13/24 Preop Diagnosis: 1. Right foot abscess 2. Right foot cellulitis 3. Right foot osteomyelitis Postop Diagnosis: Same as preop Surgeon: Molly Palacios MD Anesthesiologist: See anesthesia Anesthesia: Mac Drains: None Implant: None Consent: The patient was informed of the risks and benefits of the procedure. These include but are not limited to complications of anesthesia, postoperative infection, incomplete relief of symptoms, recurrence of symptoms, damage to blood vessels, nerves and tendons, deep venous thrombosis, pulmonary embolism and possible need for repeat surgery in the future. Complications: None Estimated Blood Loss: Minimal Fluids: See anesthesia Findings: Proximally 3 cc of purulent drainage Indications for Surgery: Worsening right foot wound Name of Procedure Performed 1. Right foot I&D to bone () 2. Right foot bone biopsy () Procedure Details Procedure Details: PRE-PROCEDURE INFORMATION: In the pre-op holding area, the extremity to be operated on was clearly marked and the patient verified correct laterality of the marking. The patient was transferred to the OR table and placed in a supine position. A timeout was performed in which identification of the correct patient, procedure, location, and materials was done. The right foot and leg were prepped and draped in normal sterile fashion. DESCRIPTION OF PROCEDURE: Attention was directed to the right lateral foot where area of fluctuance was noted. An incision was made over this area and was deepened through blunt dissection. The incision was deepened to the level of abscess and bone. Care was taken to the dissection to avoid any neurovascular and tendinous structures. The incision was deepened to the fascia and the abscess was identified. The abscess appeared to be purulent fluid consistent with pus, proximally 3 cc. After the abscess was drained, the area was irrigated with 3 L normal saline using cysto tubing. Deep cultures were then obtained. The area was then inspected and any areas of tracking, especially along the tendons were also drained. A bone biopsy was then taken from the right 5th metatarsal head. The wound was packed with Betadine-soaked gauze and we will need to be closed at a later date. A dry sterile dressing was placed on the surgical extremity. The patient was placed in a postop shoe POSTOPERATIVE INFORMATION: The patient tolerated the above noted procedure and anesthesia well and was transferred to the PACU with vital signs stable, and vascular status intact with capillary refill intact to all digits. Patient will return to the floor and continue IV antibiotics. Cultures were taken in the OR. Plan to take the patient back on Thursday for another I&D and possible closure Specimen: Right 5th metatarsal head Condition Good Disposition Still a Patient MOLLY PALACIOS DPM Jul 13, 2024 14:04
--- NOTE | 2024-07-13 14:46 | DVHPN2 ---
Changes from previous H/P or p: Changes Eyes: No Pain, No Vision change, No Conjunctivae inflammation, No Eyelid inflammation, No Other, No Redness ENT: No Ear pain, No Ear discharge, No Nose pain, No Nose discharge, No Nose congestion, No Mouth pain, No Mouth swelling, No Throat pain, No Throat swelling, No Other Cardiovascular: No Chest Pain, No Palpitations, No Orthopnea, No Paroxysmal Noc. Dyspnea, No Edema, No Lt Headedness, No Other Respiratory: No Cough, No Dry, No Shortness of breath, No SOB with excertion, No Wheezing, No Hemoptysis, No Pleuritic Pain, No Sputum, No Other Gastrointestinal: No Nausea, No Vomiting, No Abdominal Pain, No Diarrhea, No Constipation, No Melena, No Hematochezia, No Other Genitourinary: No Dysuria, No Frequency, No Incontinence, No Hematuria, No Retention, No Other Musculoskeletal: No other, No neck pain, No shoulder pain, No arm pain, No back pain, No hand pain, No leg pain; foot pain (Patient endorses bilateral foot pain) Skin: No Rash, No Lesions, No Jaundice, No Bruising, No Other Objective Vitals Vital Signs Date Time Temp Pulse Resp B/P (MAP) Pulse Ox O2 Delivery O2 Flow Rate FiO2 07/13/24 13:35 97.7 99 16 143/87 (105) 96 97.7 07/13/24 12:55 Room Air 0 100 Intake/Output Intake and Output 07/13/24 06:59 Intake Total 600 ml Balance 600 ml Intake Oral 0 ml IV Total 600 ml General Appearance: Alert, Oriented X3, Cooperative Lungs: Clear to auscultation, Normal air movement Cardiovascular: Regular rate, Normal S1, Normal S2 Abdomen: Normal bowel sounds, Soft Extremities: No edema Medications Current Medications Medications Dose Ordered Sig/Fransico Route Start Time Stop Time Status Last Admin Dose Admin Acetaminophen/ Hydrocodone Bitart 1 tab Q4HP PRN PO 07/12/24 16:30 Ondansetron HCl 4 mg Q4HP PRN IV 07/12/24 16:30 Morphine Sulfate 2 mg Q4HPRN PRN IV 07/12/24 16:30 07/13/24 03:24 2 MG Diagnostic Test (Pha) 1 strip ACHS 07/12/24 22:00 07/13/24 11:17 1 STRIP Insulin Human Regular HS SC 07/12/24 22:00 07/12/24 22:29 4 UNITS Insulin Human Regular AC SC 07/13/24 07:00 Dextrose 50 ml UD PRN IV 07/12/24 17:30 Aspirin 81 mg DAILY PO 07/13/24 10:00 07/13/24 11:16 81 MG Gabapentin 100 mg TID PO 07/12/24 22:00 07/13/24 14:08 100 MG Nifedipine 30 mg DAILY PO 07/13/24 10:00 07/13/24 11:17 30 MG Atorvastatin Calcium 40 mg HS PO 07/12/24 22:00 07/12/24 22:18 40 MG Piperacillin Sod/ Tazobactam Sod 100 ml @ 25 mls/hr Q8HR IV 07/13/24 04:00 07/13/24 11:35 25 MLS/HR Laboratory Results Laboratory Tests 07/13/24 06:15 Chemistry Test 07/13/24 06:15 Calcium Level 9.2 mg/dL (8.7-10.4) Coagulation Test 07/12/24 17:21 07/13/24 06:15 Prothrombin Time 10.6 sec (9.3-11.8) 10.3 sec (9.3-11.8) Prothrombin Time INR 1.00 (0.9-1.15) 0.97 (0.9-1.15) Activated Partial Thromboplast Time 35.5 SEC (24.5-34.5) H Urinalysis Test 07/13/24 08:15 Urine Color Light-yellow (Yellow) Urine Clarity Clear (Clear) Urine pH 6.0 (5.0-9.0) Urine Specific [place] 1.021 (1.001-1.035) Urine Protein 1+ (Negative) H Urine Ketones Negative (Negative) Urine Blood Negative /uL (Negative) Urine Nitrite Negative (Negative) Urine Bilirubin Negative (Negative) Urine Urobilinogen Normal mg/dL (Negative) Urine Leukocyte Esterase Negative /uL (Negative) Urine RBC 3 /hpf (0 - 3) Urine WBC None seen /hpf (0 - 3) Urine Squamous Epithelial Cells None seen /hpf (<5) Urine Bacteria None seen /hpf (None Seen) Urine Glucose 4+ mg/dL (Normal) H Assessment/Plan Assessment/Plan Right foot osteomyelitis and cellulitis with abscess Status post incision and drainage Type 2 diabetic 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
[2024-07-13] MEDS: ONDANSETRON HCL 4 MG/2 ML VIAL IV ONE (23:52)
[2024-07-13] MEDS: SUCCINYLCHOLINE CHLORIDE 20 MG/ML 10ML VIAL IV ONE (23:53)
[2024-07-14] VITALS (8 sets, daily range): BP systolic 106–147; BP diastolic 63–83; PULSE 96–129; RESP 17–20; TEMP 97.6–97.8; O2SAT 96–99
[2024-07-14 06:22] LABS: Anion Gap 10 (5-15); Carbon Dioxide 21 mmol/L (20-31); Chloride 106 mmol/L (98-107); Potassium 4.2 mmol/L (3.5-5.1); Sodium 137 mmol/L (136-145)
[2024-07-14 06:23] LABS: Calcium 9.8 mg/dL (8.7-10.4)
[2024-07-14 06:27] LABS: Basophils # (auto) 0 10 ^3/uL (0-0.2); Basophils % (auto) 0.1 % (0.0-2.0); Eosinophils # (auto) 0 10 ^3/uL (0-0.8); Hemoglobin 13.7 g/dL (13.5-17.5); Lymphocytes # (auto) 0.8 10 ^3/uL (0.4-5.4); Lymphocytes % (auto) 7.8 % (10.0-50.0); Mean Corpuscular Hemoglobin 30.7 pg (28.0-32.0); Mean Corpuscular Hgb Conc. 33.3 g/dL (32.0-36.0); Mean Corpuscular Volume 92.1 fL (80.0-100.0); Monocytes # (auto) 0.4 10 ^3/uL (0-1.3); Monocytes % (auto) 4.5 % (0.0-12.0); Neutrophils # (auto) 8.4 10 ^3/uL (1.6-8.6); Neutrophils % (auto) 87.6 % (37.0-80.0); Platelet Count (auto) 365 10^3/uL (140-450); Red Blood Cells 4.45 10^6/uL (4.5-5.90); Red Cell Distribution Width 12.6 % (11.8-14.3); White Blood Cell 9.6 10^3/uL (4.4-10.8)
[2024-07-14 06:28] LABS: Blood Urea Nitrogen 20 mg/dL (9-23); Glucose 213 mg/dL (74-106)
--- NOTE | 2024-07-14 12:09 | DVHPN2 ---
Subjective 48-year-old male presented to the ED after being sent by his principal archaeologist for further workup, IV antibiotics and surgery of nonhealing wound to the right foot. Podiatry consulted. Patient denies chest pain, headache, dizziness, diaphoresis, shortness of breath, abdominal pain, no nausea, vomiting, fever, or chills endorsed by the patient. Patient was admitted for further evaluation medical management. Changes from previous H/P or p: No Changes Eyes: No Pain, No Vision change, No Conjunctivae inflammation, No Eyelid inflammation, No Other, No Redness ENT: No Ear pain, No Ear discharge, No Nose pain, No Nose discharge, No Nose congestion, No Mouth pain, No Mouth swelling, No Throat pain, No Throat swelling, No Other Cardiovascular: No Chest Pain, No Palpitations, No Orthopnea, No Paroxysmal Noc. Dyspnea, No Edema, No Lt Headedness, No Other Respiratory: No Cough, No Dry, No Shortness of breath, No SOB with excertion, No Wheezing, No Hemoptysis, No Pleuritic Pain, No Sputum, No Other Gastrointestinal: No Nausea, No Vomiting, No Abdominal Pain, No Diarrhea, No Constipation, No Melena, No Hematochezia, No Other Genitourinary: No Dysuria, No Frequency, No Incontinence, No Hematuria, No Retention, No Other Musculoskeletal: No other, No neck pain, No shoulder pain, No arm pain, No back pain, No hand pain, No leg pain; foot pain (Patient endorses bilateral foot pain) Skin: No Rash, No Lesions, No Jaundice, No Bruising, No Other Objective Vitals Vital Signs Date Time Temp Pulse Resp B/P (MAP) Pulse Ox O2 Delivery O2 Flow Rate FiO2 07/14/24 11:41 98 20 147/83 07/14/24 09:00 97.8 99 97.8 07/13/24 19:50 Room Air* 0 21 Intake/Output Intake and Output 07/14/24 07:00 Intake Total 1470 ml Output Total 3280 ml Balance -1810 ml Intake Oral 1170 ml IV Total 300 ml Output Urine Total 3280 ml # Voids 2 Exam DERMATOLOGIC EXAM: - Skin is dry and cool to the touch dry bilaterally. - Nails 1-5 of the bilateral foot are thickened, discolored, dystrophic, and tender to palpate with subungual debris - Hair loss noted to bilateral feet Wound #1: Location: Right lateral foot Measurements: Length 2 cm x width 1 cm x depth when cm. Wound margins: Hyperkeratotic. Wound base: Full thickness. General Appearance: Healthy and bleeding. Probes to Bone: Yes Purulent drainage: Yes Serous drainage: No Erythema: To the periwound VASCULAR EXAM: - DP and PT pulses are palpable bilaterally. - SHOP LABORER is brisk to all digits. - Feet are cool to touch compared to lower legs bilaterally. NEUROLOGIC EXAM: - Normal light touch sensation to the superficial peroneal, deep peroneal, sural, saphenous, and tibial nerve branches. - Protective sensation is diminished as tested with a 5.07 10g [place] bilaterally. MUSCULOSKELETAL EXAM: - No gross deformities - Muscle strength is 5/5 and active motion is pain-free and symmetrical bilaterally - No pain or crepitation with passive range of motion bilaterally to all major pedal joints General Appearance: Alert, Oriented X3, Cooperative Lungs: Clear to auscultation, Normal air movement Cardiovascular: Regular rate, Normal S1, Normal S2 Abdomen: Normal bowel sounds, Soft Extremities: No edema Medications Current Medications Medications Dose Ordered Sig/Fransico Route Start Time Stop Time Status Last Admin Dose Admin Acetaminophen/ Hydrocodone Bitart 1 tab Q4HP PRN PO 07/12/24 16:30 Ondansetron HCl 4 mg Q4HP PRN IV 07/12/24 16:30 Morphine Sulfate 2 mg Q4HPRN PRN IV 07/12/24 16:30 07/14/24 11:41 2 MG Diagnostic Test (Pha) 1 strip ACHS 07/12/24 22:00 07/14/24 06:42 1 STRIP Insulin Human Regular HS SC 07/12/24 22:00 07/13/24 21:30 8 UNITS Insulin Human Regular AC SC 07/13/24 07:00 07/14/24 11:40 3 UNITS Dextrose 50 ml UD PRN IV 07/12/24 17:30 Aspirin 81 mg DAILY PO 07/13/24 10:00 07/14/24 10:53 81 MG Gabapentin 100 mg TID PO 07/12/24 22:00 07/14/24 06:41 100 MG Nifedipine 30 mg DAILY PO 07/13/24 10:00 07/14/24 10:53 30 MG Atorvastatin Calcium 40 mg HS PO 07/12/24 22:00 07/13/24 21:27 40 MG Piperacillin Sod/ Tazobactam Sod 100 ml @ 25 mls/hr Q8HR IV 07/13/24 04:00 07/14/24 06:41 25 MLS/HR Laboratory Results Laboratory Tests 07/14/24 05:29 Chemistry Test 07/14/24 05:29 Calcium Level 9.8 mg/dL (8.7-10.4) Urinalysis Test 07/13/24 08:15 Urine Color Light-yellow (Yellow) Urine Clarity Clear (Clear) Urine pH 6.0 (5.0-9.0) Urine Specific [place] 1.021 (1.001-1.035) Urine Protein 1+ (Negative) H Urine Ketones Negative (Negative) Urine Blood Negative /uL (Negative) Urine Nitrite Negative (Negative) Urine Bilirubin Negative (Negative) Urine Urobilinogen Normal mg/dL (Negative) Urine Leukocyte Esterase Negative /uL (Negative) Urine RBC 3 /hpf (0 - 3) Urine WBC None seen /hpf (0 - 3) Urine Squamous Epithelial Cells None seen /hpf (<5) Urine Bacteria None seen /hpf (None Seen) Urine Glucose 4+ mg/dL (Normal) H Microbiology Microbiology Date/Time Source Procedure Growth Status 07/13/24 12:40 Drainage Gram Stain - Final Resulted 07/13/24 12:40 Drainage Anaerobic Culture Pending Resulted 07/13/24 12:40 Drainage Aerobic Culture - Preliminary Resulted Assessment/Plan Assessment/Plan ASSESSMENT: Patient is a 48 year old who was seen in clinic for DM ulcer care PLAN: - The patients chart was reviewed, clinical findings were discussed with the patient, the etiologies of the conditions were discussed in detail, and a treatment plan was agreed to at this time, with both oral and written instructions provided. - reviewed x-rays with the patient - discussed that the patient will need an I and D performed on Thursday for closure - we will continue to have him on IV antibiotics - cultures taken in the OR - NPO at midnight tonight - patient can weightbear as tolerated in a postop shoe - hopefully we will be able to close the foot wound tomorrow depending on hallux All questions were answered and concerns addressed to the patient's satisfaction. The patient was given the phone number to the clinic and was told how to make contact with the clinic should any concerns or questions arise. Patient understands that if any questions or concerns arise prior to the next appointment, we should be contacted immediately. FOLLOW-UP: Continue to follow while inpatient Plan discussed with: Patient My Orders Orders - MOLLY PALACIOS DPM Procedure Category Date Status Time Routine Bacterial AMBERLY 07/13/24 In Process Culture 12:59 Gram Stain AMBERLY 07/13/24 In Process 12:59 Anaerobic Culture AMBERLY 07/13/24 In Process 12:59 Npo After Midnight DIET 07/14/24 Transmitted Lunch Obtain Consent For: ORDERS 07/14/24 Transmitted 12:07 Problem List: (1) Uncontrolled diabetes mellitus (2) Osteomyelitis of foot (3) Slurred speech (4) Confusion (5) Lethargic (6) Hemoptysis, unspecified (7) Cavitary lesion of lung (8) Acute kidney injury (9) Open wound of right foot (10) Stroke-like symptoms (11) Cellulitis of right wrist Date of Service: Jul 14, 2024 Billing Provider: MOLLY PALACIOS DPM Common Visit Codes: [id number] INP/OBS CARE(MOD) MOLLY PALACIOS DPM Jul 14, 2024 12:09
[2024-07-15] VITALS (7 sets, daily range): BP systolic 111–141; BP diastolic 68–82; PULSE 88–101; RESP 11–18; TEMP 97.6–98.4; O2SAT 97–100
[2024-07-15] MEDS ORDERED: KETAMINE 50mg/ML 1ml syringe ONE (10:09)
[2024-07-15] MEDS ORDERED: ONDANSETRON HCL 4 MG/2 ML VIAL ONE (10:09)
[2024-07-15] MEDS ORDERED: MIDAZOLAM HCL 2MG/2ML 2ml VIAL (1mg/ml) ONE (10:09)
[2024-07-15] MEDS ORDERED: PROPOFOL 10 MG/ML 20 ML IV ONE (10:09)
[2024-07-15] MEDS ORDERED: GLYCOPYRROLATE 0.2 MG/ML 1ML VIAL ONE (10:09)
[2024-07-15] MEDS: BUPIVACAINE 0.5% P/F INJ 10 ML VIAL ONE (10:29)
[2024-07-15] MEDS ORDERED: VANCOMYCIN HCL 1000 MG VL ONE (10:31)
[2024-07-15] MEDS: VANCOMYCIN HCL 1000 MG VL ONE (10:35)
--- NOTE | 2024-07-15 10:47 | DVHOP2 ---
Operative Report - 2 Report Details Date: 07/15/24 Preop Diagnosis: 1. Right foot abscess 2. Right foot cellulitis 3. Right foot osteomyelitis Postop Diagnosis: Same as preop Surgeon: Molly Palacios MD Anesthesiologist: See anesthesia Anesthesia: Mac Implant: None Consent: The patient was informed of the risks and benefits of the procedure. These include but are not limited to complications of anesthesia, postoperative infection, incomplete relief of symptoms, recurrence of symptoms, damage to blood vessels, nerves and tendons, deep venous thrombosis, pulmonary embolism and possible need for repeat surgery in the future. Complications: None Estimated Blood Loss: Minimal Fluids: See anesthesia Findings: Consistent with the diagnosis Indications for Surgery: Worsening right foot wound Name of Procedure Performed 1. Right foot I&D to bone (75029) 2. Right foot delayed closure (03576) Procedure Details Procedure Details: PRE-PROCEDURE INFORMATION: In the pre-op holding area, the extremity to be operated on was clearly marked and the patient verified correct laterality of the marking. The patient was transferred to the OR table and placed in a supine position. A timeout was performed in which identification of the correct patient, procedure, location, and materials was done. The right foot and leg were prepped and draped in normal sterile fashion. DESCRIPTION OF PROCEDURE: Attention was directed to the right lateral foot where previous incision was made. An incision was made over this area and was deepened through blunt dissection. The incision was deepened to the level of abscess and bone. Care was taken to the dissection to avoid any neurovascular and tendinous structures. The incision was deepened to the fascia and the a bscess was identified. The abscess appeared to be purulent fluid consistent with pus, proximally 3 cc. After the abscess was drained, the area was irrigated with 3 L normal saline using cysto tubing. The area was then inspected and any areas of tracking, especially along the tendons were also drained. A bone biopsy was then taken from the right 5th metatarsal head. The wound was packed with Betadine-soaked gauze and we will need to be closed at a later date. A dry sterile dressing was placed on the surgical extremity. The patient was placed in a postop shoe POSTOPERATIVE INFORMATION: The patient tolerated the above noted procedure and anesthesia well and was transferred to the PACU with vital signs stable, and vascular status intact with capillary refill intact to all digits. Patient will return to the floor and continue IV antibiotics. A delayed closure was then performed on the patient. Patient can be discharged once medically cleared and antibiotics are determined Condition Good Disposition Still a Patient MOLLY PALACIOS DPM Jul 15, 2024 10:47
--- NOTE | 2024-07-15 10:49 | DVHPN2 ---
Subjective 48-year-old male presented to the ED after being sent by his clinical sociologist for further workup, IV antibiotics and surgery of nonhealing wound to the right foot. Podiatry consulted. Patient denies chest pain, headache, dizziness, diaphoresis, shortness of breath, abdominal pain, no nausea, vomiting, fever, or chills endorsed by the patient. Patient was admitted for further evaluation medical management. Changes from previous H/P or p: No Changes Eyes: No Pain, No Vision change, No Conjunctivae inflammation, No Eyelid inflammation, No Other, No Redness ENT: No Ear pain, No Ear discharge, No Nose pain, No Nose discharge, No Nose congestion, No Mouth pain, No Mouth swelling, No Throat pain, No Throat swelling, No Other Cardiovascular: No Chest Pain, No Palpitations, No Orthopnea, No Paroxysmal Noc. Dyspnea, No Edema, No Lt Headedness, No Other Respiratory: No Cough, No Dry, No Shortness of breath, No SOB with excertion, No Wheezing, No Hemoptysis, No Pleuritic Pain, No Sputum, No Other Gastrointestinal: No Nausea, No Vomiting, No Abdominal Pain, No Diarrhea, No Constipation, No Melena, No Hematochezia, No Other Genitourinary: No Dysuria, No Frequency, No Incontinence, No Hematuria, No Retention, No Other Musculoskeletal: No other, No neck pain, No shoulder pain, No arm pain, No back pain, No hand pain, No leg pain; foot pain (Patient endorses bilateral foot pain) Skin: No Rash, No Lesions, No Jaundice, No Bruising, No Other Objective Vitals Vital Signs Date Time Temp Pulse Resp B/P (MAP) Pulse Ox O2 Delivery O2 Flow Rate FiO2 07/15/24 08:51 98.1 97 15 141/80 (100) 99 98.1 07/14/24 20:00 Room Air* 0 21 Intake/Output Intake and Output 07/15/24 07:00 Intake Total 1820 ml Output Total 1150 ml Balance 670 ml Intake Oral 1820 ml Output Urine Total 1150 ml Exam DERMATOLOGIC EXAM: - Skin is dry and cool to the touch dry bilaterally. - Nails 1-5 of the bilateral foot are thickened, discolored, dystrophic, and tender to palpate with subungual debris - Hair loss noted to bilateral feet Wound #1: Location: Right lateral foot Measurements: Length 2 cm x width 1 cm x depth when cm. Wound margins: Hyperkeratotic. Wound base: Full thickness. General Appearance: Healthy and bleeding. Probes to Bone: Yes Purulent drainage: Yes Serous drainage: No Erythema: To the periwound VASCULAR EXAM: - DP and PT pulses are palpable bilaterally. - SQUEEGEE OPERATOR is brisk to all digits. - Feet are cool to touch compared to lower legs bilaterally. NEUROLOGIC EXAM: - Normal light touch sensation to the superficial peroneal, deep peroneal, sural, saphenous, and tibial nerve branches. - Protective sensation is diminished as tested with a 5.07 10g [place] bilaterally. MUSCULOSKELETAL EXAM: - No gross deformities - Muscle strength is 5/5 and active motion is pain-free and symmetrical bilaterally - No pain or crepitation with passive range of motion bilaterally to all major pedal joints General Appearance: Alert, Oriented X3, Cooperative Lungs: Clear to auscultation, Normal air movement Cardiovascular: Regular rate, Normal S1, Normal S2 Abdomen: Normal bowel sounds, Soft Extremities: No edema Medications Current Medications Medications Dose Ordered Sig/Fransico Route Start Time Stop Time Status Last Admin Dose Admin Acetaminophen/ Hydrocodone Bitart 1 tab Q4HP PRN PO 07/12/24 16:30 Ondansetron HCl 4 mg Q4HP PRN IV 07/12/24 16:30 Morphine Sulfate 2 mg Q4HPRN PRN IV 07/12/24 16:30 07/14/24 21:43 2 MG Diagnostic Test (Pha) 1 strip ACHS 07/12/24 22:00 07/15/24 05:55 1 STRIP Insulin Human Regular HS SC 07/12/24 22:00 07/14/24 21:35 15 UNITS Insulin Human Regular AC SC 07/13/24 07:00 07/15/24 06:11 6 UNITS Dextrose 50 ml UD PRN IV 07/12/24 17:30 Aspirin 81 mg DAILY PO 07/13/24 10:00 07/15/24 09:39 81 MG Gabapentin 100 mg TID PO 07/12/24 22:00 07/15/24 05:54 100 MG Nifedipine 30 mg DAILY PO 07/13/24 10:00 07/14/24 10:53 30 MG Atorvastatin Calcium 40 mg HS PO 07/12/24 22:00 11/14/24 21:16 40 MG Piperacillin Sod/ Tazobactam Sod 100 ml @ 25 mls/hr Q8HR IV 07/13/24 04:00 07/15/24 05:54 25 MLS/HR Laboratory Results Laboratory Tests 07/14/24 05:29 Urinalysis Test 07/13/24 08:15 Urine Color Light-yellow (Yellow) Urine Clarity Clear (Clear) Urine pH 6.0 (5.0-9.0) Urine Specific [place] 1.021 (1.001-1.035) Urine Protein 1+ (Negative) H Urine Ketones Negative (Negative) Urine Blood Negative /uL (Negative) Urine Nitrite Negative (Negative) Urine Bilirubin Negative (Negative) Urine Urobilinogen Normal mg/dL (Negative) Urine Leukocyte Esterase Negative /uL (Negative) Urine RBC 3 /hpf (0 - 3) Urine WBC None seen /hpf (0 - 3) Urine Squamous Epithelial Cells None seen /hpf (<5) Urine Bacteria None seen /hpf (None Seen) Urine Glucose 4+ mg/dL (Normal) H Microbiology Microbiology Date/Time Source Procedure Growth Status 07/13/24 12:40 Drainage Gram Stain - Final Resulted 07/13/24 12:40 Drainage Anaerobic Culture Pending Resulted 07/13/24 12:40 Aerobic Culture - Preliminary Enterobacter cloacae Resulted Assessment/Plan Assessment/Plan ASSESSMENT: Patient is a 48 year old who was seen in clinic for DM ulcer care PLAN: - The patients chart was reviewed, clinical findings were discussed with the patient, the etiologies of the conditions were discussed in detail, and a treatment plan was agreed to at this time, with both oral and written instructions provided. - reviewed x-rays with the patient - discussed that the patient will need an I and D performed on Thursday for closure - we will continue to have him on IV antibiotics - NPO since midnight - patient can weightbear as tolerated in a postop shoe - we will plan to close the wound today - patient can discharge after surgery depending on antibiotic determination All questions were answered and concerns addressed to the patient's satisfaction. The patient was given the phone number to the clinic and was told how to make contact with the clinic should any concerns or questions arise. Patient understands that if any questions or concerns arise prior to the next appointment, we should be contacted immediately. FOLLOW-UP: Continue to follow while inpatient Plan discussed with: Patient My Orders Orders - MOLLY PALACIOS DPM Procedure Category Date Status Time Npo After Midnight DIET 07/14/24 Transmitted Lunch Obtain Consent For: ORDERS 07/14/24 Transmitted 12:07 Problem List: (1) Uncontrolled diabetes mellitus (2) Osteomyelitis of foot (3) Slurred speech (4) Confusion (5) Lethargic (6) Hemoptysis, unspecified (7) Cavitary lesion of lung (8) Acute kidney injury (9) Open wound of right foot (10) Stroke-like symptoms (11) Cellulitis of right wrist Date of Service: Jul 15, 2024 Billing Provider: MOLLY PALACIOS DPM Common Visit Codes: [id number] INP/OBS CARE(MOD) MOLLY PALACIOS DPM Jul 15, 2024 10:49
[2024-07-15] MEDS ORDERED: HYDROmorphone HCL 2 MG/ML VL/or syr IV PRN (11:00)
[2024-07-15] MEDS ORDERED: PHENYLEPHRINE HCL 10 MG/ML VL ONE (11:39)
[2024-07-15] MEDS ORDERED: AUG875T PO (12:30)
--- NOTE | 2024-07-15 12:35 | DVHDS2 ---
Discharge Summary Date of Admission Jul 12, 2024 at 16:28 Date of Discharge: Jul 15, 2024 Labs/Diagnostic Data: Laboratory Results Test 07/15/24 06:04 07/14/24 05:29 07/13/24 08:15 07/13/24 06:15 POC Glucose 225 mg/dl (70-106) White Blood Count 9.6 10^3/uL (4.4-10.8) Red Blood Count 4.45 10^6/uL (4.5-5.90) Hemoglobin 13.7 g/dL (13.5-17.5) Hematocrit 41.0 % (41.0-53.0) Mean Corpuscular Volume 92.1 fL (80.0-100.0) Mean Corpuscular Hemoglobin 30.7 pg (28.0-32.0) Mean Corpuscular Hemoglobin Concent 33.3 g/dL (32.0-36.0) Red Cell Distribution Width 12.6 % (11.8-14.3) Platelet Count 365 10^3/uL (140-450) Mean Platelet Volume 7.4 fL (6.9-10.8) Neutrophils (%) (Auto) 87.6 % (37.0-80.0) Lymphocytes (%) (Auto) 7.8 % (10.0-50.0) Monocytes (%) (Auto) 4.5 % (0.0-12.0) Eosinophils (%) (Auto) 0.0 % (0.0-7.0) Basophils (%) (Auto) 0.1 % (0.0-2.0) Neutrophils # (Auto) 8.4 10 ^3/uL (1.6-8.6) Lymphocytes # (Auto) 0.8 10 ^3/uL (0.4-5.4) Monocytes # (Auto) 0.4 10 ^3/uL (0-1.3) Eosinophils # (Auto) 0 10 ^3/uL (0-0.8) Basophils # (Auto) 0 10 ^3/uL (0-0.2) Nucleated Red Blood Cells 0.0 % Sodium Level 137 mmol/L (136-145) Potassium Level 4.2 mmol/L (3.5-5.1) Chloride Level 106 mmol/L (98-107) Carbon Dioxide Level 21 mmol/L (20-31) Anion Gap 10 (5-15) Blood Urea Nitrogen 20 mg/dL (9-23) Creatinine 1.25 mg/dL (0.700-1.30) Glomerular Filtration Rate Calc 71 mL/min (>90) BUN/Creatinine Ratio 16.0 (10.0-20.0) Serum Glucose 213 mg/dL (74-106) Calcium Level 9.8 mg/dL (8.7-10.4) Urine Color Light-yellow (Yellow) Urine Clarity Clear (Clear) Urine pH 6.0 (5.0-9.0) Urine Specific [place] 1.021 (1.001-1.035) Urine Protein 1+ (Negative) Urine Ketones Negative (Negative) Urine Blood Negative /uL (Negative) Urine Nitrite Negative (Negative) Urine Bilirubin Negative (Negative) Urine Urobilinogen Normal mg/dL (Negative) Urine Leukocyte Esterase Negative /uL (Negative) Urine RBC 3 /hpf (0 - 3) Urine WBC None seen /hpf (0 - 3) Urine Squamous Epithelial Cells None seen /hpf (<5) Urine Bacteria None seen /hpf (None Seen) Urine Glucose 4+ mg/dL (Normal) Prothrombin Time 10.3 sec (9.3-11.8) Prothrombin Time INR 0.97 (0.9-1.15) Activated Partial Thromboplast Time 35.5 SEC (24.5-34.5) Other Laboratory Tests 07/14/24 05:29 Brief Hx & Hospital Course: Final diagnoses: Right foot osteomyelitis and cellulitis with abscess Status post incision and drainage Type 2 diabetic History of CVA with right-sided residual deficit History of benign lung tumor Dyslipidemia Weakness 48-year-old male was admitted to have surgery on his foot due to nonhealing wound and osteomyelitis He had surgery successfully twice once on admission and once today and wound is closed now According to our party director Dr. Gonzalez, the patient's osteomyelitis has a mostly resolved and therefore he only needs p.o. 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 Gonzalez next week Medications: Augmentin 875 mg twice a day for 10 days Resume the home medications Discharge Statement: "Patient was advised to return to the ER or call 911 if any headaches, dizziness, shortness of breath, chest pain, abdominal pain, bleeding, fevers, or worsening of medical condition. Patient was counseled about treatment plan, medications, possible side effects, patientverbalized understanding. All questions were answered to the best of my ability. This discharge took greater then 30 minutes in planning, reviewing documentation, counseling the patient, and discussing with other team members." ASSESSMENT ASSESSMENT Assessment Right foot osteomyelitis and cellulitis with abscess Status post incision and drainage Type 2 diabetic History of CVA with right-sided residual deficit History of benign lung tumor Dyslipidemia Weakness Date of Service: Jul 15, 2024 Billing Provider: MARC BRADFORD MD Common Visit Codes: 36258-ZOX/OBS DISCH DAY >30min MARC BRADFORD MD Jul 15, 2024 12:34
== END 2024-07-15 15:20 | disposition home or self-care (01) | DRG 344 ==
LOC: ER 09:59 → OVERFLOW 16:28 → WEST WING 07-13 02:54
PROVIDERS: ADMIT Internal Medicine Geriatric Medicine; ATTEND Internal Medicine Geriatric Medicine
PROC: 0QBN0ZX Excision of Right Metatarsal, Open Approach, Diagnostic (ICD-10-PCS; 2024-07-13)
PROC: 0Y9M0ZZ Drainage of Right Foot, Open Approach (ICD-10-PCS; principal; 2024-07-13 12:29)
PROC: 0Y9M0ZZ Drainage of Right Foot, Open Approach (ICD-10-PCS; 2024-07-15)
PROC: 0QBN0ZX Excision of Right Metatarsal, Open Approach, Diagnostic (ICD-10-PCS; 2024-07-15)
DX: E11.69 Type 2 diabetes mellitus with other specified complication (principal); M86.8X7 Other osteomyelitis, ankle and foot; L03.115 Cellulitis of right lower limb; E11.621 Type 2 diabetes mellitus with foot ulcer; L02.611 Cutaneous abscess of right foot; L97.519 Non-pressure chronic ulcer of other part of right foot with unspecified severity; F17.290 Nicotine dependence, other tobacco product, uncomplicated; E78.5 Hyperlipidemia, unspecified; I10 Essential (primary) hypertension; Z85.118 Personal history of other malignant neoplasm of bronchus and lung; Z88.1 Allergy status to other antibiotic agents; Z83.3 Family history of diabetes mellitus; Z80.1 Family history of malignant neoplasm of trachea, bronchus and lung; Z79.4 Long term (current) use of insulin; Z79.899 Other long term (current) drug therapy; Z86.73 Personal history of transient ischemic attack (TIA), and cerebral infarction without residual deficits
CPT/HCPCS: 36415; 73630; 80048; 81001; 82962; 85025; 85610; 85730; 86850; 86900; 86901; 87070; 87075; 87077; 87186; 87205; 99291; G0378; J0330; J1100; J1815; J2250; J2405; J2543; J2704; J3490

== ENCOUNTER 2024-11-07 12:27 | Emergency (ER) | payer MEDICAID ==
[~2024-11-07] VITALS: Ht 185.4 cm; Wt 94.0 kg
[~2024-11-07 12:27] MED LIST changes: +AUG875T PO; -CEFA2INJ IV
[2024-11-07 12:42] VITALS: BP 134/85; PULSE 92; RESP 12; O2SAT 99
[2024-11-07 14:05] LABS: Basophils # (auto) 0.1 10 ^3/uL (0-0.2); Basophils % (auto) 0.7 % (0.0-2.0); Eosinophils # (auto) 0.2 10 ^3/uL (0-0.8); Hematocrit 43.7 % (41.0-53.0); Lymphocytes # (auto) 1.7 10 ^3/uL (0.4-5.4); Lymphocytes % (auto) 22.5 % (10.0-50.0); Mean Corpuscular Hemoglobin 31.4 pg (28.0-32.0); Mean Corpuscular Hgb Conc. 34.2 g/dL (32.0-36.0); Mean Corpuscular Volume 91.9 fL (80.0-100.0); Monocytes # (auto) 0.4 10 ^3/uL (0-1.3); Monocytes % (auto) 5.1 % (0.0-12.0); Neutrophils # (auto) 5.2 10 ^3/uL (1.6-8.6); Neutrophils % (auto) 69.7 % (37.0-80.0); Nucleated Red Blood Cells % 0.1 %; Platelet Count (auto) 336 10^3/uL (140-450); Red Blood Cells 4.76 10^6/uL (4.5-5.90); Red Cell Distribution Width 13.8 % (11.8-14.3); White Blood Cell 7.5 10^3/uL (4.4-10.8)
[2024-11-07 14:20] LABS: Chloride 104 mmol/L (98-107); Potassium 4.7 mmol/L (3.5-5.1); Sodium 137 mmol/L (136-145)
[2024-11-07 14:21] LABS: Anion Gap 8 (5-15); Carbon Dioxide 25 mmol/L (20-31)
[2024-11-07 14:26] LABS: BUN/Creatinine Ratio 11.7 (10.0-20.0); Blood Urea Nitrogen 16 mg/dL (9-23)
[2024-11-07 14:29] LABS: Glucose 152 mg/dL (74-106)
--- NOTE | 2024-11-07 14:29 | ED.PDOC ---
History of Present Illness HPI Comments 49-year-old male with PMHx CVA, DM presents with a chief complaint of diabetic foot ulcer x onset March 2024. Per , patient had a stroke and has difficulty speaking. Patient was referred to the ER by Dr. Reynolds. Patient has a diabetic ulcer to his right foot that is red in color, warm to touch, and appe ars infected. Patient has been having wound care on his foot since March 2024 per . Patient is able to ambulate. Chief Complaint: Lower Extremity Time Seen by MD: 14:22 Reviewed Notes: Medications, Allergies Allergies: Coded Allergies: Vancomycin (Verified Allergy, Unknown, 06/03/24) Home Meds Active Scripts Amoxicillin & Pot Clavulanate (AUGMENTIN TABLET) 875 Mg Tb, 875 MG PO BID for 10 Days, #20 TAB Prov:MARC BRADFORD MD 07/15/24 Nifedipine (Nifedipine Er) 30 Mg Tab, 30 MG PO DAILY for 30 Days, #30 TAB Prov:DEDE DUDLEY MD 06/07/24 Reported Medications Glipizide (Glipizide Er) 5 Mg Tab, 5 MG PO DAILY, MG 05/06/24 Aspirin (Aspir-Low) 81 Mg Tab, 81 MG PO DAILY, MG 05/06/24 Atorvastatin Calcium (ATORVASTATIN CALCIUM) 40 Mg Tab, 40 MG PO DAILY, TAB 05/06/24 Empagliflozin (Jardiance) 25 Mg Tab, 25 MG PO DAILY, TAB 05/06/24 Cholecalciferol (VITAMIN D) 5,000 Unit Tab, 5000 UNIT PO DAILY, TAB 05/06/24 Tramadol Hcl (Tramadol Hcl) 50 Mg Tab, 50 MG PO DAILY PRN for PAIN SCALE 1 THRU 6, MG 05/06/24 Gabapentin (Gabapentin) 100 Mg Cap, 100 MG PO TID 05/06/24 Tiotropium [place] Monohydrate (Spiriva Respimat) 2.5 Mcg/Act Spr, 2 PUFF IN DAILY, SPRAY 05/06/24 Information Source: Patient, Spouse Mode of Arrival: Ambulatory Severity: Moderate Timing: Months Duration: Since onset Prehospital treatment: None Past Medical History PAST MEDICAL HISTORY: Cancer, CVA, DM, High Lipids Family History Family History: Unknown Social History Smoker: Cigarettes Alcohol: Denies ETOH Use Drugs: Denies Drug Use Lives In: Home Constitutional: denies: chills, diaphoresis, fatigue, fever, malaise, sweats, weakness, others EENTM: denies: blurred vision, double vision, ear bleeding, ear discharge, ear drainage, ear pain, ear ringing, eye pain, eye redness, hearing loss, mouth pain, mouth swelling, nasal discharge, nose bleeding, nose congestion, nose pain, photophobia, tearing, throat pain, throat swelling, voice changes, others Respiratory: denies: cough, hemoptysis, orthopnea, SOB at rest, shortness of breath, SOB with excertion, stridor, wheezing, others Cardiovascular: denies: chest pain, dizzy spells, diaphoresis, Dyspnea on exertion, edema, irregular heart beat, left arm pain, lightheadedness, palpitations, PND, syncope, others Gastrointestinal: denies: abdomen distended, abdominal pain, blood streaked bowels, constipated, diarrhea, dysphagia, difficulty swallowing, hematemesis, melena, nausea, poor appetite, poor fluid intake, rectal bleeding, rectal pain, vomiting, others Genitourinary: denies: burning, dysuria, flank pain, frequency, hematuria, incontinence, penile discharge, penile sore, pain, testicle pain, testicle swelling, urgency, others Neurological: denies: dizziness, fainting, headache, left sided numbness, left sided weakness, numbness, paresthesia, pre-existing deficit, right sided numbness, right sided weakness, seizure, speech problems, tingling, tremors, weakness, others Musculoskeletal: denies: back pain, gout, joint pain, joint swelling, muscle pain, muscle stiffness, neck pain, others Integumetry: reports: wounds; denies: bruises, change in color, change in hair/nails, dryness, laceration, lesions, lumps, rash, others Allergic/Immunocompromised: denies: Difficulty Healing, Frequent Infections, Hives, Itching, others Hematologic/Lymphatic: denies: anemia, blood clots, easy bleeding, easy bruising, swollen glands, others Endocrine: denies: excessive hunger, excessive sweating, excessive thirst, excessive urination, flushing, intolerance to cold, intolerance to heat, unexplained weight gain, unexplained weight loss, others Psychiatric: denies: anxiety, bipolar disorder, depression, hopeless, panic disorder, schizophrenia, sleepless, suicidal, others All Other Systems: Reviewed and Negative Physical Exam General Appearance: No Apparent Distress, Normal HEENT: Normal ENT Inspection, Pharynx Normal, TMs Normal Neck: Full Range of Motion, Non-Tender, Normal, Normal Inspection Respiratory: Chest Non-Tender, Lungs Clear, No Accessory Muscle Use, No Respiratory Distress, Normal Breath Sounds Cardiovascular: No Edema, No JVD, No Murmur, No Gallop, Normal Peripheral Pulses, Regular Rate/Rhythm Breast Exam: Deferred Gastrointestinal: No Organomegaly, Non Tender, No Pulsatile Mass, Normal Bowel Sounds, Soft Genitalia: Deferred Pelvic: Deferred Rectal: Deferred Extremities: Other (WOUND TO RIGHT FOOT; WARM TO TOUCH; REDNESS NOTED) Musculoskeletal : Apperance: Normal Neurologic: Alert, blood bank specialist II-XII nml as Tested, No Motor Deficits, Normal Affect, Normal Mood, No Sensory Deficits Cerebellar Function: Normal Reflexes: Normal Skin: Dry, Normal Color, Warm Lymphatic: No Adenopathy Was a procedure done? Was a procedure done?: No Differential Dx Considerations may include: Osteomyelitis, cellulitis, X-Ray, Labs, Meds, VS Vital Signs Date Time Temp Pulse Resp B/P (MAP) Pulse Ox O2 Delivery O2 Flow Rate FiO2 11/07/24 12:42 98.1 92 12 134/85 (101) 99 Lab Test 11/07/24 13:34 Range/Units White Blood Count 7.5 4.4-10.8 10^3/uL Red Blood Count 4.76 4.5-5.90 10^6/uL Hemoglobin 15.0 13.5-17.5 g/dL Hematocrit 43.7 41.0-53.0 % Mean Corpuscular Volume 91.9 80.0-100.0 fL Mean Corpuscular Hemoglobin 31.4 28.0-32.0 pg Mean Corpuscular Hemoglobin Concent 34.2 32.0-36.0 g/dL Red Cell Distribution Width 13.8 11.8-14.3 % Platelet Count 336 140-450 10^3/uL Mean Platelet Volume 7.1 6.9-10.8 fL Neutrophils (%) (Auto) 69.7 37.0-80.0 % Lymphocytes (%) (Auto) 22.5 10.0-50.0 % Monocytes (%) (Auto) 5.1 0.0-12.0 % Eosinophils (%) (Auto) 2.0 0.0-7.0 % Basophils (%) (Auto) 0.7 0.0-2.0 % Neutrophils # (Auto) 5.2 1.6-8.6 10 ^3/uL Lymphocytes # (Auto) 1.7 0.4-5.4 10 ^3/uL Monocytes # (Auto) 0.4 0-1.3 10 ^3/uL Eosinophils # (Auto) 0.2 0-0.8 10 ^3/uL Basophils # (Auto) 0.1 0-0.2 10 ^3/uL Nucleated Red Blood Cells 0.1 % Sodium Level 137 136-145 mmol/L Potassium Level 4.7 3.5-5.1 mmol/L Chloride Level 104 98-107 mmol/L Carbon Dioxide Level 25 20-31 mmol/L Anion Gap 8 5-15 Blood Urea Nitrogen 16 9-23 mg/dL Creatinine 1.37 H 0.700-1.30 mg/dL Glomerular Filtration Rate Calc 64 >90 mL/min BUN/Creatinine Ratio 11.7 10.0-20.0 Serum Glucose 152 H 74-106 mg/dL Lactic Acid Level 1.1 0.4-2.0 mmol/L Calcium Level 10.0 8.7-10.4 mg/dL Time of 1ST Reevaluation: 14:52 Reevaluation 1ST: Unchanged Patient Education/Counseling: Diagnosis, Treatment, Prognosis Family Education/Counseling: Diagnosis, Treatment, Prognosis Departure 1 Departure Time of Disposition: 17:29 (Patient has signs and symptoms concerning for worsening cellulitis versus osteomyelitis very empirically start the patient labs medicines however patient eloped with .) Impression: Primary Impression: Diabetic foot ulcer Qualified Codes: E13.621 - Other specified diabetes mellitus with foot ulcer; L97.512 - Non-pressure chronic ulcer of other part of right foot with fat layer exposed Disposition: 07 LEFT AWOL/ELOPED Condition: Serious Critical Care Note Critical Care Time?: No Stability Stability form required: No Heart Score Heart Score: Heart Score Response (Comments) Value History N/A 0 EKG N/A 0 Age N/A 0 Risk Factors N/A 0 Troponin N/A 0 Total 0 I personally scribed for WENDI MEDELLIN MD ([email or web address]) on 11/07/24 at 14:29. Electronically submitted by Al Luu ([email or web address]). WENDI MEDELLIN MD Nov 07, 2024 14:29
[2024-11-07] MEDS ORDERED: CLINDAMYCIN 900MG IV 50 ML IV ONE (14:30)
[2024-11-07] MEDS ORDERED: SODIUM CHLORIDE 0.9% 1,000 ML IV ONE (14:30)
[2024-11-08] MEDS ORDERED: SEMA2INJ3 SC (20:13)
[2024-11-09] MEDS ORDERED: ONDANSETRON HCL 4 MG/2 ML VIAL ONE (09:36)
[2024-11-09] MEDS ORDERED: DexAMETHasone SOD PHOS 10MG/1ML VIAL INJ ONE (09:36)
[2024-11-09] MEDS ORDERED: KETOROLAC TROMETH 30 MG/ML 1ML VIAL ONE (09:36)
[2024-11-09] MEDS ORDERED: LIDOCAINE 1% INJ PF 5ML AMP ONE (09:36)
[2024-11-09] MEDS ORDERED: GLYCOPYRROLATE 0.2 MG/ML 1ML VIAL ONE (09:36)
[2024-11-09] MEDS ORDERED: PROPOFOL 10 MG/ML 20 ML IV ONE (09:36)
== END 2024-11-07 15:10 | disposition left against medical advice (07) ==
LOC: ER 12:27
DX: L97.512 Non-pressure chronic ulcer of other part of right foot with fat layer exposed (principal); E11.621 Type 2 diabetes mellitus with foot ulcer; E78.5 Hyperlipidemia, unspecified; F17.210 Nicotine dependence, cigarettes, uncomplicated; Z88.1 Allergy status to other antibiotic agents; Z86.73 Personal history of transient ischemic attack (TIA), and cerebral infarction without residual deficits; Z79.82 Long term (current) use of aspirin; Z79.84 Long term (current) use of oral hypoglycemic drugs; Z79.899 Other long term (current) drug therapy
CPT/HCPCS: 36415; 80048; 83605; 85025; 87040

== ENCOUNTER 2024-11-08 18:23 | Inpatient (IN) | payer MEDICAID ==
[~2024-11-08] VITALS: Ht 185.4 cm; Wt 97.8 kg
[2024-11-08 19:32] VITALS: PULSE 90; RESP 18; O2SAT 96
[2024-11-08 20:00] VITALS: PULSE 90; RESP 18; O2SAT 96
[2024-11-08] MEDS ORDERED: SEMA2INJ3 SC (20:13)
--- NOTE | 2024-11-08 20:18 | DVHHPRES ---
History of Present Illness Resident Creating Document: ABEL BENÍTEZ RESIDENT History of Present Illness ZEESHANZAIN MONGE is 48 years old male with a PMH of lung tumor, CVA with the right-sided residual deficits, type 2 DM, HLD, dysarthria, chronic nonhealing right foot ulcer presented to the ED after being sent by his Podiatry for surgery tomorrow for nonhealing wound of right foot. Patient had chronic nonhealing foot ulcer on the right lateral side of the foot since March 2024 and has been operated 3 times due to complications, again for past few weeks patient has been again developing pain and drainage, again went to Podiatry and advised him to undergo surgery again. On my assessment patient denies fever, nausea, vomiting, diarrhea, and other associated symptoms Past Medical History Cancer (lung tumor ), CVA (w/right-sided residual deficits), DM, High Lipids, dysarthria, right foot ulcer wound Past Surgical History thoracotomy for lung tumor resection, right foot Sx Family History Reviewed noncontributory to the management of this case Social history: Lives at home. Smokes less than 1 pack per day, occasional marijuana abuse but no alcohol Allergies: Vancomycin Review of Systems Review of Systems Patient seen and examined at the bedside. Currently patient reporting pain in his foot but no new complaints. Patient is scheduled for the surgery by emt paramedic tomorrow. Constitutional: Yes: Weakness Eyes: No: Pain, Vision change, Conjunctivae inflammation, Eyelid inflammation, Other, Redness ENT: No: Ear pain, Ear discharge, Nose pain, Nose discharge, Nose congestion, Mouth pain, Mouth swelling, Throat pain, Throat swelling, Other Respiratory: No: Cough, Dry, Shortness of breath, SOB with excertion, Wheezing, Hemoptysis, Pleuritic Pain, Sputum, Wheezing, Other Cardiovascular: No: Chest Pain, Palpitations, Orthopnea, Paroxysmal Noc. Dyspnea, Edema, Lt Headedness, Other Gastrointestinal: No: Nausea, Vomiting, Abdominal Pain, Diarrhea, Constipation, Melena, Hematochezia, Other Genitourinary: No Dysuria, No Frequency, No Incontinence, No Hematuria, No Retention, No Other Musculoskeletal: foot pain Skin: No: Rash, Lesions, Jaundice, Bruising, Other Neurological: Weakness (Residual right-sided weakness due to past CVA) Allergies: Coded Allergies: NO KNOWN ALLERGIES (Unverified , 11/09/24) Medications Current Medications Medications Dose Ordered Sig/Fransico Route Start Time Stop Time Status Last Admin Dose Admin Sodium Chloride 1,000 ml @ 75 mls/hr [id number] IV 11/08/24 19:15 UNV Exam Exam Pt is lying on bed General Appearance: Alert, Oriented X3, Cooperative, Not in acute distress HEENT: Atraumatic, Mucous membranes moist/pink Respiratory: Clear to auscultation, Normal air movement Cardiovascular: Regular rate, Normal S1, Normal S2 Abdominal: Active bowel sounds, Soft, no distention, no tenderness Extremities: Ulcer wrapped in dressing right foot. No edema, Normal pulses, No tenderness/swelling Skin: Ulcer wrapped in dressing right foot Neuro: Normal speech, Residual right-sided weakness due to stroke Psych/Mental Status: Mental status NL, Mood NL Nurse was there as sharperone during examination Assessment/Plan Assessment/Plan # chronic nonhealing diabetic foot ulcer, right-sided # possible right foot cellulitis # rule out osteomyelitis - consulted Podiatry - currently on Zyvox and cefepime - IVF - NPO after midnight - preoperative workup - ordered CXR and PT INR # uncontrolled type 2 DM - pending HbA1c - Accu-Cheks and mild ISS Protonix SCDs Goals of care discussed with the patient for more than 27 minutes: Full code status Case discussed with Dr. Crabtree, patient and nurse Plan discussed with: Patient My Orders Orders - ABEL BENÍTEZ RESIDENT Procedure Category Date Status Time Chest Xray 1 View XY 11/08/24 Logged 20:12 Blood Alcohol LAB 11/08/24 Transmitted 20:12 B-Type Natriuretic LAB 11/08/24 Transmitted Peptide 20:12 Complete Blood Count LAB 11/09/24 Verified 04:00 Comprehensive LAB 11/08/24 Transmitted Metabolic Panel 20:12 Drug Screen LAB 11/08/24 Transmitted 20:12 Hemoglobin A1c LAB 11/08/24 Transmitted 20:12 Lactic Acid W/ Reflex LAB 11/08/24 Transmitted Order 20:12 Magnesium LAB 11/08/24 Transmitted 20:12 PTPTT LAB 11/08/24 Transmitted 20:12 Rapid Influenza A&B LAB 11/08/24 Transmitted 20:12 Thyroid Stimulating LAB 11/08/24 Transmitted Hormone 20:12 Urinalysis LAB 11/08/24 Transmitted 20:12 Complete Blood Count LAB 11/08/24 Transmitted 20:12 Comprehensive LAB 11/09/24 Verified Metabolic Panel 04:00 Cefepime 1 Gm PHA 11/08/24 Transmitted 22:00 Linzeolid 600 Mg Ivpb PHA 11/08/24 Transmitted 22:00 Pantoprazole PHA 11/08/24 Transmitted (Protonix) 20:15 Pantoprazole PHA 11/09/24 Transmitted (Protonix) 10:00 Morphine Sulfate PHA 11/08/24 Transmitted Injection 20:15 Date of Service: Nov 08, 2024 Billing Provider: FLYNN PENA MD Common Visit Codes: [id number] INP/OBS CARE (HIGH) Secondary Visit Codes: [id number] CARE PLAN 30 MINUTES ABEL BENÍTEZ RESIDENT Nov 08, 2024 20:18 FLYNN PENA MD Nov 14, 2024 00:32
[2024-11-08] MEDS ORDERED: DEXTROSE (50%) 50ML SYRG IV PRN (20:30)
[2024-11-08 21:00] VITALS: BP 127/67; PULSE 90; RESP 19; TEMP 98.3; O2SAT 96
[2024-11-08 22:05] LABS: Basophils # (auto) 0 10 ^3/uL (0-0.2); Basophils % (auto) 0.6 % (0.0-2.0); Eosinophils # (auto) 0.2 10 ^3/uL (0-0.8); Eosinophils % (auto) 3.4 % (0.0-7.0); Hemoglobin 13.2 g/dL (13.5-17.5); Lymphocytes # (auto) 1.9 10 ^3/uL (0.4-5.4); Lymphocytes % (auto) 27.8 % (10.0-50.0); Mean Corpuscular Hemoglobin 30.3 pg (28.0-32.0); Mean Corpuscular Hgb Conc. 32.9 g/dL (32.0-36.0); Monocytes # (auto) 0.5 10 ^3/uL (0-1.3); Monocytes % (auto) 7.1 % (0.0-12.0); Neutrophils # (auto) 4.1 10 ^3/uL (1.6-8.6); Neutrophils % (auto) 61.1 % (37.0-80.0); Nucleated Red Blood Cells % 0.1 %; Platelet Count (auto) 291 10^3/uL (140-450); Red Blood Cells 4.35 10^6/uL (4.5-5.90); Red Cell Distribution Width 13.6 % (11.8-14.3); White Blood Cell 6.8 10^3/uL (4.4-10.8)
[2024-11-08 22:26] LABS: Magnesium 2.1 mg/dL (1.6-2.6)
[2024-11-08 22:27] LABS: Alanine Aminotransferase 15 U/L (7-40); Alkaline Phosphatase 88 U/L (46-116); Anion Gap 9 (5-15); Aspartate Aminotransferase 20 U/L (13-40); BUN/Creatinine Ratio 17.1 (10.0-20.0); Calcium 9.4 mg/dL (8.7-10.4); Carbon Dioxide 24 mmol/L (20-31); Chloride 105 mmol/L (98-107); Potassium 4.1 mmol/L (3.5-5.1); Sodium 138 mmol/L (136-145)
[2024-11-08 22:29] LABS: Bilirubin, Total 0.2 mg/dL (0.2-1.0); Blood Alcohol < 3.0 mg/dL (<10); Blood Urea Nitrogen 24 mg/dL (9-23); Glucose 214 mg/dL (74-106)
[2024-11-08 22:40] LABS: INR 0.95 (0.9-1.15); Partial Thromboplastin Time 32.9 SEC (24.5-34.5); Prothrombin Time 10.1 sec (9.3-11.8)
[2024-11-08] MEDS: LINEZOLID 600MG/300ML 300 ML IV SCH (23:34)
[2024-11-08] MEDS: PANTOPRAZOLE 40 MG/10 ML VIAL INJ IV ONE (23:34)
[2024-11-08] MEDS: SODIUM CHLORIDE 0.9% 1,000 ML IV SCH (23:39)
[2024-11-08] MEDS: ACCU-CHEK COMFORT CURVE STRIP VI SCH (23:40)
[2024-11-08] MEDS: InsuLIN REG 1unit/0.01ml Soln (100units/ml) SC SCH (23:47)
[2024-11-09 00:30] LABS: Urine Bacteria None Seen /hpf (None Seen)
[2024-11-09 01:00] LABS: Urine Blood Negative /uL (Negative); Urine Clarity Clear (Clear); Urine Color Light-Yellow (Yellow); Urine Protein, UAD Negative (Negative); Urine Specific Gravity 1.025 (1.001-1.035); Urine Squamous Epithelial Cell None Seen /hpf (<5); Urine Urobilinogen Normal (Negative); Urine WBC < 1 /HPF (0-3); Urine pH 5.5 (5.0-9.0)
[2024-11-09 01:54] LABS: Amphetamine Screen, Urine Neg (NEGATIVE); Barbiturate Scree,Urine Neg (NEGATIVE); Benzodiazephine Screen, Urine Neg (NEGATIVE); Cannabinoid Screen, Urine Neg (NEGATIVE); Cocaine Screen, Urine Neg (NEGATIVE); Opiate Scree,Urine Neg (NEGATIVE); Phencyclidine Screen, Urine Neg (NEGATIVE)
[2024-11-09] MEDS: CEFEPIME 1GM/ 50ML 50 ML IV SCH (02:18)
[2024-11-09 05:00] VITALS: BP 131/72; PULSE 83; RESP 18; TEMP 97.8; O2SAT 95
--- NOTE | 2024-11-09 05:14 | DVH ---
EXAM: XR Chest, 1 View CLINICAL INDICATION: sob TECHNIQUE: Frontal view of the chest. COMPARISON: XY CHEST PORTABLE on DOS: 06/03/24, XY CHEST PORTABLE on DOS: 05/05/24, XY CHEST PORTABLE on DOS: 03/31/23, XY CHEST PORTABLE on DOS: 03/28/23, XY CHEST PORTABLE on DOS: 03/26/23 FINDINGS: LUNGS AND PLEURAL SPACES: Mild pulmonary congestion. Right pleural effusion. No consolidation. N o pneumothorax. HEART: Unremarkable. No cardiomegaly. MEDIASTINUM: Unremarkable. Normal mediastinal contour. BONES/JOINTS: Unremarkable. No acute fracture. OTHER FINDINGS: . IMPRESSION: Mild pulmonary congestion. Right pleural effusion.
[2024-11-09 07:21] LABS: Alanine Aminotransferase 16 U/L (7-40); Albumin 3.9 g/dL (3.2-4.8); Alkaline Phosphatase 82 U/L (46-116); Anion Gap 8 (5-15); Aspartate Aminotransferase 15 U/L (13-40); BUN/Creatinine Ratio 16.2 (10.0-20.0); Blood Urea Nitrogen 22 mg/dL (9-23); Calcium 9.5 mg/dL (8.7-10.4); Carbon Dioxide 24 mmol/L (20-31); Chloride 107 mmol/L (98-107); Potassium 4.4 mmol/L (3.5-5.1); Sodium 139 mmol/L (136-145); Total Protein 6.8 g/dL (5.7-8.2)
[2024-11-09 07:22] LABS: Bilirubin, Total 0.4 mg/dL (0.2-1.0)
[2024-11-09 07:25] LABS: Glucose 142 mg/dL (74-106)
[2024-11-09 07:30] LABS: Basophils # (auto) 0 10 ^3/uL (0-0.2); Basophils % (auto) 0.5 % (0.0-2.0); Eosinophils # (auto) 0.1 10 ^3/uL (0-0.8); Eosinophils % (auto) 2.7 % (0.0-7.0); Hematocrit 41.3 % (41.0-53.0); Hemoglobin 13.7 g/dL (13.5-17.5); Lymphocytes # (auto) 1.5 10 ^3/uL (0.4-5.4); Lymphocytes % (auto) 26.5 % (10.0-50.0); Mean Corpuscular Hemoglobin 30.6 pg (28.0-32.0); Mean Corpuscular Hgb Conc. 33.1 g/dL (32.0-36.0); Mean Corpuscular Volume 92.2 fL (80.0-100.0); Monocytes # (auto) 0.4 10 ^3/uL (0-1.3); Neutrophils # (auto) 3.5 10 ^3/uL (1.6-8.6); Neutrophils % (auto) 63.3 % (37.0-80.0); Nucleated Red Blood Cells % 0.1 %; Platelet Count (auto) 288 10^3/uL (140-450); Red Blood Cells 4.47 10^6/uL (4.5-5.90); Red Cell Distribution Width 13.4 % (11.8-14.3); White Blood Cell 5.5 10^3/uL (4.4-10.8)
[2024-11-09] MEDS: PANTOPRAZOLE 40 MG/10 ML VIAL INJ IV SCH (08:28)
[2024-11-09 08:48] VITALS: BP 137/64; PULSE 86; RESP 20; TEMP 98; O2SAT 96
[2024-11-09] MEDS: BUPIVACAINE 0.5% P/F INJ 10 ML VIAL ONE (09:29)
--- NOTE | 2024-11-09 10:17 | DVHINCON2 ---
Date Seen: Nov 09, 2024 Reason for Consultation Right foot wound History of Present Illness ZAIN MENDOZA is 48 years old male with a PMH of lung tumor, CVA with the right-sided residual deficits, type 2 DM, HLD, dysarthria, chronic nonhealing right foot ulcer presented to the ED after being sent by his Podiatry for surgery tomorrow for nonhealing wound of right foot. Patient had chronic nonhealing foot ulcer on the right lateral side of the foot since March 2024 and has been operated 3 times due to complications, again for past few weeks patient has been again developing pain and drainage, again went to Podiatry and advised him to undergo surgery again. On my assessment patient denies fever, nausea, vomiting, diarrhea, and other associated symptoms Past Medical History See H&P Past Surgical History See H&P Family History: Diabetes mellitus G8 MOTHER (type 2) FH: lung cancer G8 FATHER (Patient states father no longer has lung cancer) Allergies: Coded Allergies: Vancomycin (Verified Allergy, Unknown, 06/03/24) Home Meds Active Scripts Amoxicillin & Pot Clavulanate (AUGMENTIN TABLET) 875 Mg Tb, 875 MG PO BID for 10 Days, #20 TAB Prov:MARC BRADFORD MD 07/15/24 Nifedipine (Nifedipine Er) 30 Mg Tab, 30 MG PO DAILY for 30 Days, #30 TAB Prov:DEDE DUDLEY MD 06/07/24 Reported Medications Semaglutide (Ozempic) 2 Mg/3 Ml Inj, 2 MG SC, INJ 11/08/24 Glipizide (Glipizide Er) 5 Mg Tab, 5 MG PO DAILY, MG 05/06/24 Aspirin (Aspir-Low) 81 Mg Tab, 81 MG PO DAILY, MG 05/06/24 Atorvastatin Calcium (ATORVASTATIN CALCIUM) 40 Mg Tab, 40 MG PO DAILY, TAB 05/06/24 Empagliflozin (Jardiance) 25 Mg Tab, 25 MG PO DAILY, TAB 05/06/24 Cholecalciferol (VITAMIN D) 5,000 Unit Tab, 5000 UNIT PO DAILY, TAB 05/06/24 Tramadol Hcl (Tramadol Hcl) 50 Mg Tab, 50 MG PO DAILY PRN for PAIN SCALE 1 THRU 6, MG 05/06/24 Gabapentin (Gabapentin) 100 Mg Cap, 100 MG PO TID 05/06/24 Tiotropium [place] Monohydrate (Spiriva Respimat) 2.5 Mcg/Act Spr, 2 PUFF IN DAILY, SPRAY 05/06/24 Current Medications Current Medications Medications (Trade) Dose Ordered Sig/Fransico Route PRN Reason Start Time Stop Time Status Last Admin Sodium Chloride 1,000 ml @ 75 mls/hr [id number] IV 11/08/24 19:15 11/08/24 23:39 Cefepime HCl 50 ml @ 12.5 mls/hr Q8HR IV 11/08/24 22:00 11/09/24 06:10 Linezolid 300 ml @ 150 mls/hr Q12HR IV 11/08/24 22:00 11/08/24 23:34 Pantoprazole Sodium (Protonix) 40 mg DAILY IV 11/09/24 10:00 11/09/24 08:28 Morphine Sulfate 1 mg Q3HP PRN IV SEVERE PAIN (7-10 PAIN SCALE) 11/08/24 20:15 Diagnostic Test (Pha) (Accu-Chek Comfort Curve T) 1 strip ACHS 11/08/24 22:00 11/09/24 06:31 Insulin Human Regular (InsuLIN R) ACHS SC 11/08/24 22:00 11/08/24 23:47 Dextrose 50 ml UD PRN IV Blood Sugar LESS THAN 60 11/08/24 20:30 Vital Signs Vital Signs Date Time Temp Pulse Resp B/P (MAP) Pulse Ox O2 Delivery O2 Flow Rate FiO2 11/09/24 08:48 98.0 86 20 137/64 (88) 96 98.0 11/08/24 20:00 Room Air* 0 21 Physical Exam DERMATOLOGIC EXAM: - Skin is dry and cool to the touch dry bilaterally. - Nails 1-5 of the bilateral foot are thickened, discolored, dystrophic, and tender to palpate with subungual debris - Hair loss noted to bilateral feet Wound #1: Location: Right lateral foot Measurements: Length 1 cm x width 1 cm x depth 0.5 cm. Wound margins: Hyperkeratotic. Wound base: Full thickness. General Appearance: Healthy and bleeding. Probes to Bone: Yes Purulent drainage: Yes Serous drainage: No Erythema: Yes VASCULAR EXAM: - DP and PT pulses are palpable bilaterally. - [employer] is brisk to all digits. - Feet are cool to touch compared to lower legs bilaterally. NEUROLOGIC EXAM: - Normal light touch sensation to the superficial peroneal, deep peroneal, sural, saphenous, and tibial nerve branches. - Protective sensation is diminished as tested with a 5.07 10g Bertrand-Hilton bilaterally. MUSCULOSKELETAL EXAM: - No gross deformities - Muscle strength is 5/5 and active motion is pain-free and symmetrical bilaterally - No pain or crepitation with passive range of motion bilaterally to all major pedal joints Labs/Diagnostic Data Labs Test 11/09/24 06:23 11/09/24 06:22 11/09/24 00:23 11/08/24 21:30 Range/Units White Blood Count 5.5 4.4-10.8 10^3/uL Red Blood Count 4.47 L 4.5-5.90 10^6/uL Hemoglobin 13.7 13.5-17.5 g/dL Hematocrit 41.3 41.0-53.0 % Mean Corpuscular Volume 92.2 80.0-100.0 fL Mean Corpuscular Hemoglobin 30.6 28.0-32.0 pg Mean Corpuscular Hemoglobin Concent 33.1 32.0-36.0 g/dL Red Cell Distribution Width 13.4 11.8-14.3 % Platelet Count 288 140-450 10^3/uL Mean Platelet Volume 7.3 6.9-10.8 fL Neutrophils (%) (Auto) 63.3 37.0-80.0 % Lymphocytes (%) (Auto) 26.5 10.0-50.0 % Monocytes (%) (Auto) 7.0 0.0-12.0 % Eosinophils (%) (Auto) 2.7 0.0-7.0 % Basophils (%) (Auto) 0.5 0.0-2.0 % Neutrophils # (Auto) 3.5 1.6-8.6 10 ^3/uL Lymphocytes # (Auto) 1.5 0.4-5.4 10 ^3/uL Monocytes # (Auto) 0.4 0-1.3 10 ^3/uL Eosinophils # (Auto) 0.1 0-0.8 10 ^3/uL Basophils # (Auto) 0 0-0.2 10 ^3/uL Nucleated Red Blood Cells 0.1 % Sodium Level 139 136-145 mmol/L Potassium Level 4.4 3.5-5.1 mmol/L Chloride Level 107 98-107 mmol/L Carbon Dioxide Level 24 20-31 mmol/L Anion Gap 8 5-15 Blood Urea Nitrogen 22 9-23 mg/dL Creatinine 1.36 H 0.700-1.30 mg/dL Glomerular Filtration Rate Calc 64 >90 mL/min BUN/Creatinine Ratio 16.2 10.0-20.0 Serum Glucose 142 H 74-106 mg/dL Calcium Level 9.5 8.7-10.4 mg/dL Total Bilirubin 0.4 0.2-1.0 mg/dL Aspartate Amino Transferase (AST) 15 13-40 U/L Alanine Aminotransferase (ALT) 16 7-40 U/L Alkaline Phosphatase 82 46-116 U/L Total Protein 6.8 5.7-8.2 g/dL Albumin 3.9 3.2-4.8 g/dL POC Glucose 147 H 70-106 mg/dl Urine Color Light-yellow Yellow Urine Clarity Clear Clear Urine pH 5.5 5.0-9.0 Urine Specific [place] 1.025 1.001-1.035 Urine Protein Negative Negative Urine Ketones Negative Negative Urine Blood Negative Negative /uL Urine Nitrite Negative Negative Urine Bilirubin Negative Negative Urine Urobilinogen Normal Negative mg/dL Urine Leukocyte Esterase Negative Negative /uL Urine RBC 1 0 - 3 /hpf Urine Microscopic WBC < 1 0-3 /HPF Urine Squamous Epithelial Cells None seen <5 /hpf Urine Bacteria None seen None Seen /hpf Urine Glucose 4+ H Normal mg/dL Prothrombin Time 10.1 9.3-11.8 sec Prothrombin Time INR 0.95 0.9-1.15 Activated Partial Thromboplast Time 32.9 24.5-34.5 SEC Hemoglobin A1c 8.9 H <5.7 % A1C Lactic Acid Level 1.1 0.4-2.0 mmol/L Magnesium Level 2.1 1.6-2.6 mg/dL B-Type Natriuretic Peptide 6.80 0-100 pg/mL Thyroid Stimulating Hormone (TSH) 0.85 0.55-4.78 uIU/mL Plasma/Serum Blood Alcohol < 3.0 <10 mg/dL Test 11/08/24 00:23 Range/Units Urine Opiates Screen Neg NEGATIVE Urine Fentanyl Screen Neg NEGATIVE Urine Barbiturates Screen Neg NEGATIVE Urine Phencyclidine Screen Neg NEGATIVE Urine Amphetamines Screen Neg NEGATIVE Urine Benzodiazepines Screen Neg NEGATIVE Urine Cocaine Screen Neg NEGATIVE Urine Cannabinoids Screen Neg NEGATIVE Problems(with codes): (1) Uncontrolled diabetes mellitus (2) Osteomyelitis of foot (3) Slurred speech (4) Confusion (5) Lethargic (6) Hemoptysis, unspecified (7) Cavitary lesion of lung (8) Acute kidney injury (9) Open wound of right foot (10) Stroke-like symptoms (11) Cellulitis of right wrist (12) Diabetic foot ulcer Plan/Recommendation ASSESSMENT: Patient is a 49 year old seen on the floor for a worsening ulcer PLAN: - The patients chart was reviewed, clinical findings were discussed with the patient, the etiologies of the conditions were discussed in detail, and a treatment plan was agreed to at this time, with both oral and written instructions provided. - reviewed advanced imaging - discussed plan is to perform an incision and drainage - patient NPO since midnight - take him to the OR today - we will get cultures in the OR - can weightbear as tolerated in postoperative shoe All questions were answered and concerns addressed to the patient's satisfaction. The patient was given the phone number to the clinic and was told how to make contact with the clinic should any concerns or questions arise. Patient understands that if any questions or concerns arise prior to the next appointment, we should be contacted immediately. FOLLOW-UP: Continue to follow while inpatient Plan discussed with: Patient Date of Service: Nov 09, 2024 Billing Provider: MOLLY PALACIOS DPM Common Visit Codes: CONSULT ONLY Consultation Codes: [id number] CONSULT <80MIN MOLLY PALACIOS DPM Nov 09, 2024 10:17
[2024-11-09] MEDS: LIDOCAINE 1% HCL (LOCAL ANESTH.) INJ 20ML MDV ONE (11:12)
--- NOTE | 2024-11-09 11:26 | DVHOP2 ---
Operative Report - 2 Report Details Date: 11/09/24 Preop Diagnosis: 1. Right foot osteomyelitis 2. Right foot abscess 3. Right foot cellulitis 4. Right foot diabetic ulcer Postop Diagnosis: Same as preop Surgeon: Molly Palacios MD Anesthesiologist: See anesthesia Anesthesia: Mac Consent: The patient was informed of the risks and benefits of the procedure. These include but are not limited to complications of anesthesia, postoperative infection, incomplete relief of symptoms, recurrence of symptoms, damage to blood vessels, nerves and tendons, deep venous thrombosis, pulmonary embolism and possible need for repeat surgery in the future. Complications: None Estimated Blood Loss: Minimal Fluids: See anesthesia Findings: Consistent with diagnosis Indications for Surgery: Worsening right foot wound Name of Procedure Performed 1. Right foot I&D () 2. Right foot bone biopsy () Procedure Details Procedure Details: PRE-PROCEDURE INFORMATION: In the pre-op holding area, the extremity to be operated on was clearly marked and the patient verified correct laterality of the marking. The patient was transferred to the OR table and placed in a supine position. A timeout was performed in which identification of the correct patient, procedure, location, and materials was done. The right foot and leg were prepped and draped in normal sterile fashion. DESCRIPTION OF PROCEDURE: Attention was directed to the right where area of fluctuance was noted. An incision was made over this area and was deepened through blunt dissection. The incision was deepened to the level of abscess and bone. Care was taken to the dissection to avoid any neurovascular and tendinous structures. The incision was deepened to the bone, and the abscess appeared to be purulent fluid consistent with pus. The cortices of the bone was then removed with Sergio an all necrotic tissue. After the abscess was drained, the area was irrigated with 3 L normal saline using cysto tubing. Deep cultures were then obtained from the wound. The area was then inspected and any areas of tracking, especially along the tendons were also drained. The wound was packed with Betadine-soaked gauze and we will need to be closed at a later date. POSTOPERATIVE INFORMATION: The patient tolerated the above noted procedure and anesthesia well and was transferred to the PACU with vital signs stable, and vascular status intact with capillary refill intact to all digits. Deep cult ures were taken. Patient will return to the OR on Thursday for another repeat I&D in hospital closure. Continue IV antibiotics. Patient can weightbear as tolerated with a postoperative shoe. Specimen: Right 5th metatarsal Condition Good Disposition Still a Patient MOLLY PALACIOS DPM Nov 09, 2024 11:26
[2024-11-09 12:41] VITALS: BP 135/75; PULSE 85; RESP 20; TEMP 97.9; O2SAT 98
--- NOTE | 2024-11-09 13:12 | DVHPNRES ---
Progress Note Date Seen: Nov 09, 2024 Resident Creating Document: ABEL BENÍTEZ RESIDENT Medical Necessity Reason Pt with a Central, PICC or Fol: No Subjective Review of Systems ZAIN MENDOZA is 48 years old male with a PMH of lung tumor, CVA with the right-sided residual deficits, type 2 DM, HLD, dysarthria, chronic nonhealing right foot ulcer presented to the ED after being sent by his Podiatry for surgery tomorrow for nonhealing wound of right foot. Patient seen and examined at the bedside. Postoperative day 0 status post right foot I and D, patient tolerated the procedure well, sample sent for cultures and biopsy. Patient currently reporting mild pain. No new complaints. Objective vital signs Vital Sign Date Time Temp Pulse Resp B/P (MAP) Pulse Ox O2 Delivery O2 Flow Rate FiO2 11/09/24 12:41 97.9 85 20 135/75 (95) 98 97.9 11/09/24 07:30 Room Air* 0 21 Total Intake and Output 11/08/24 11/08/24 11/09/24 14:59 22:59 06:59 Intake Total 1100 ml Output Total 500 ml Balance 600 ml medications Current Medications Medications Dose Ordered Sig/Fransico Route Start Time Stop Time Status Last Admin Dose Admin Sodium Chloride 1,000 ml @ 75 mls/hr [id number] IV 11/08/24 19:15 11/08/24 23:39 75 MLS/HR Cefepime HCl 50 ml @ 12.5 mls/hr Q8HR IV 11/08/24 22:00 11/09/24 06:10 12.5 MLS/HR Linezolid 300 ml @ 150 mls/hr Q12HR IV 11/08/24 22:00 11/08/24 23:34 150 MLS/HR Pantoprazole Sodium 40 mg DAILY IV 11/09/24 10:00 11/09/24 08:28 40 MG Morphine Sulfate 1 mg Q3HP PRN IV 11/08/24 20:15 Diagnostic Test (Pha) 1 strip ACHS 11/08/24 22:00 11/09/24 12:07 1 STRIP Insulin Human Regular ACHS SC 11/08/24 22:00 11/08/24 23:47 3 UNITS Dextrose 50 ml UD PRN IV 11/08/24 20:30 Examination General Appearance: Alert, Oriented X3, Cooperative, Not in acute distress HEENT: Atraumatic, Mucous membranes moist/pink Respiratory: Clear to auscultation, Normal air movement Cardiovascular: Regular rate, Normal S1, Normal S2 Abdominal: Active bowel sounds, Soft, no distention, no tenderness Extremities: Ulcer wrapped in dressing right foot. No edema, Normal pulses, No tenderness/swelling Skin: Ulcer wrapped in dressing right foot Neuro: Normal speech, Residual right-sided weakness due to stroke Psych/Mental Status: Mental status NL, Mood NL Nurse was there as sharperone during examination laboratory and microbiology Laboratory Tests 11/09/24 06:23 Test 11/09/24 06:23 Range/Units Serum Glucose 142 H 74-106 mg/dL Labs and/or images reviewed: Labs reviewed by me, Image(s) reviewed by me Problem List/Assessment/Plan Problem List/Assessment/Plan # Chronic nonhealing diabetic foot ulcer, right-sided # Right foot cellulitis & osteomyelitis # Right foot abscess - consulted Podiatry - currently on Zyvox and cefepime - IVF - Postoperative day 0, S/P Right foot I&D with bone biopsy, closure will be on Thursday - pain management # uncontrolled type 2 DM - HbA1c 8.9 - Accu-Cheks and mild ISS # FENG likely VMN on CKD -Monitor and IVF Protonix SCDs Goals of care discussed with the patient for more than 27 minutes: Full code status Case discussed with Dr. Crabtree, patient and nurse Plan discussed with: Patient My Orders My Orders Orders - ABEL BENÍTEZ RESIDENT Procedure Category Date Status Time Chest Xray 1 View XY 11/08/24 Resulted 20:12 Rapid Influenza A&B LAB 11/08/24 Logged 20:12 Cefepime 1gm/ 50ml PHA 11/08/24 In Process (Maxipime 1gm/50ml) 22:00 Linezolid 600mg/300ml PHA 11/08/24 In Process (Zyvox) 22:00 Pantoprazole PHA 11/09/24 In Process (Protonix) 10:00 Morphine Sulfate PHA 11/08/24 In Process Injection 20:15 Glucose Blood PHA 11/08/24 In Process (Accu-Chek Comfort 22:00 Insulin R (Human) PHA 11/08/24 In Process (Insulin R) 22:00 Dextrose 50% Syringe PHA 11/08/24 In Process 20:30 *Podiatry Consult CONS 11/09/24 Transmitted Lisa([facility]) 09:08 Dietary Evaluation Review Recommendations by RD: Protein Supplementation Comments: 1. Recommend timely diet advancement s/p I&D to 75 gm CHO diet to meet caloric needs; continue ss insulin as needed for BG correction 2. Suggest oral nutrition supplements (Ensure HP BID) to support wound healing *provides 160 kcal, 16 gm pro, 19 gm CHO per serving 3. Continue frequent POC BG checks for excellent glycemic control; goal >70, <180 mg/dl while inpatient 4. Noted A1c 8.9%, would benefit from outpatient DM counseling for additional support Expected Outcomes/Goals: Wound healing, maintain skin integrity, enhanced nutritional status. Date of Service: Nov 09, 2024 Billing Provider: FLYNN PENA MD Common Visit Codes: [id number] INP/OBS CARE(HIGH) ABEL BENÍTEZ RESIDENT Nov 09, 2024 13:12 FLYNN PENA MD Nov 13, 2024 23:39
[2024-11-09 17:21] VITALS: BP 124/63; PULSE 96; RESP 20; TEMP 98.2; O2SAT 97
[2024-11-09 20:00] VITALS: PULSE 98; RESP 18; O2SAT 96
[2024-11-09 21:00] VITALS: BP 137/62; PULSE 89; RESP 19; TEMP 97.9; O2SAT 98
[2024-11-10] VITALS (7 sets, daily range): BP systolic 115–139; BP diastolic 73–81; PULSE 82–99; RESP 16–20; TEMP 97.7–98.5; O2SAT 84–98
[2024-11-10] MEDS: MORPHINE SULFATE INJ 2 MG/ml SYRG IV PRN (00:40)
[2024-11-10 07:19] LABS: Basophils # (auto) 0 10 ^3/uL (0-0.2); Basophils % (auto) 0.4 % (0.0-2.0); Eosinophils # (auto) 0.1 10 ^3/uL (0-0.8); Eosinophils % (auto) 2.3 % (0.0-7.0); Hematocrit 39.8 % (41.0-53.0); Hemoglobin 13.4 g/dL (13.5-17.5); Lymphocytes # (auto) 1.3 10 ^3/uL (0.4-5.4); Mean Corpuscular Hemoglobin 30.9 pg (28.0-32.0); Mean Corpuscular Hgb Conc. 33.6 g/dL (32.0-36.0); Mean Corpuscular Volume 92.1 fL (80.0-100.0); Monocytes # (auto) 0.5 10 ^3/uL (0-1.3); Monocytes % (auto) 8.3 % (0.0-12.0); Neutrophils # (auto) 3.6 10 ^3/uL (1.6-8.6); Platelet Count (auto) 265 10^3/uL (140-450); Red Blood Cells 4.32 10^6/uL (4.5-5.90); Red Cell Distribution Width 13.3 % (11.8-14.3); White Blood Cell 5.5 10^3/uL (4.4-10.8)
[2024-11-10 07:28] LABS: Alanine Aminotransferase 13 U/L (7-40); Albumin 3.9 g/dL (3.2-4.8); Alkaline Phosphatase 75 U/L (46-116); Anion Gap 7 (5-15); Aspartate Aminotransferase 14 U/L (13-40); BUN/Creatinine Ratio 16.4 (10.0-20.0); Bilirubin, Total 0.3 mg/dL (0.2-1.0); Blood Urea Nitrogen 22 mg/dL (9-23); Calcium 9.2 mg/dL (8.7-10.4); Carbon Dioxide 24 mmol/L (20-31); Chloride 107 mmol/L (98-107); Potassium 4.2 mmol/L (3.5-5.1); Sodium 138 mmol/L (136-145); Total Protein 6.6 g/dL (5.7-8.2)
[2024-11-10 07:29] LABS: Glucose 176 mg/dL (74-106)
--- NOTE | 2024-11-10 12:27 | DVHPNRES ---
Progress Note Date Seen: Nov 10, 2024 Resident Creating Document: ABEL BENÍTEZ RESIDENT Medical Necessity Reason Pt with a Central, PICC or Fol: No Subjective Review of Systems ZAIN MENDOZA is 48 years old male with a PMH of lung tumor, CVA with the right-sided residual deficits, type 2 DM, HLD, dysarthria, chronic nonhealing right foot ulcer presented to the ED after being sent by his Podiatry for surgery tomorrow for nonhealing wound of right foot. Patient seen and examined at the bedside. Postoperative day 1 status post right foot I and D, patient tolerated the procedure well, sample sent for cultures and biopsy. Patient currently reporting mild pain. No new complaints. Objective vital signs Vital Sign Date Time Temp Pulse Resp B/P (MAP) Pulse Ox O2 Delivery O2 Flow Rate FiO2 11/10/24 09:00 98.1 87 17 115/73 (87) 98 98.1 11/09/24 20:00 Room Air* 0 21 Total Intake and Output 11/09/24 11/09/24 11/10/24 15:00 23:00 07:00 Intake Total 150 ml 750 ml 950 ml Output Total 550 ml Balance 150 ml 750 ml 400 ml medications Current Medications Medications Dose Ordered Sig/Fransico Route Start Time Stop Time Status Last Admin Dose Admin Sodium Chloride 1,000 ml @ 75 mls/hr [id number] IV 11/08/24 19:15 11/08/24 23:39 75 MLS/HR Cefepime HCl 50 ml @ 12.5 mls/hr Q8HR IV 11/08/24 22:00 11/10/24 06:17 12.5 MLS/HR Linezolid 300 ml @ 150 mls/hr Q12HR IV 11/08/24 22:00 11/10/24 10:30 150 MLS/HR Pantoprazole Sodium 40 mg DAILY IV 11/09/24 10:00 11/10/24 10:30 40 MG Morphine Sulfate 1 mg Q3HP PRN IV 11/08/24 20:15 11/10/24 00:40 1 MG Diagnostic Test (Pha) 1 strip ACHS 11/08/24 22:00 11/10/24 10:40 1 STRIP Insulin Human Regular ACHS SC 11/08/24 22:00 11/10/24 11:07 3 UNITS Dextrose 50 ml UD PRN IV 11/08/24 20:30 Examination General Appearance: Alert, Oriented X3, Cooperative, Not in acute distress HEENT: Atraumatic, Mucous membranes moist/pink Respiratory: Clear to auscultation, Normal air movement Cardiovascular: Regular rate, Normal S1, Normal S2 Abdominal: Active bowel sounds, Soft, no distention, no tenderness Extremities: Ulcer wrapped in dressing right foot. No edema, Normal pulses, No tenderness/swelling Skin: Ulcer wrapped in dressing right foot Neuro: Normal speech, Residual right-sided weakness due to stroke Psych/Mental Status: Mental status NL, Mood NL Nurse was there as sharperone during examination laboratory and microbiology Laboratory Tests 11/10/24 06:06 Test 11/10/24 06:06 Range/Units Serum Glucose 176 H 74-106 mg/dL Microbiology Date/Time Source Procedure Growth Status 11/09/24 11:20 Foot Right Gram Stain - Final Resulted 11/09/24 11:20 Foot Right Anaerobic Culture - Preliminary Resulted 11/09/24 11:20 Foot Right Aerobic Culture - Preliminary Resulted Labs and/or images reviewed: Labs reviewed by me, Image(s) reviewed by me Problem List/Assessment/Plan Problem List/Assessment/Plan # Chronic nonhealing diabetic foot ulcer, right-sided # Right foot cellulitis & osteomyelitis # Right foot abscess - consulted Podiatry - currently on Zyvox and cefepime - IVF - Postoperative day 1, S/P Right foot I&D with bone biopsy, closure will be on Thursday - pain management # uncontrolled type 2 DM - HbA1c 8.9 - Accu-Cheks and mild ISS # FENG likely VMN on CKD -Monitor and IVF Protonix SCDs Goals of care discussed with the patient for more than 27 minutes: Full code status Case discussed with Dr. Crabtree, patient and nurse Plan discussed with: Patient Dietary Evaluation Review Recommendations by RD: Protein Supplementation Comments: 1. Recommend timely diet advancement s/p I&D to 75 gm CHO diet to meet caloric needs; continue ss insulin as needed for BG correction 2. Suggest oral nutrition supplements (Ensure HP BID) to support wound healing *provides 160 kcal, 16 gm pro, 19 gm CHO per serving 3. Continue frequent POC BG checks for excellent glycemic control; goal >70, <180 mg/dl while inpatient 4. Noted A1c 8.9%, would benefit from outpatient DM counseling for additional support Expected Outcomes/Goals: Wound healing, maintain skin integrity, enhanced nutritional status. Date of Service: Nov 10, 2024 Billing Provider: FLYNN PENA MD Common Visit Codes: [id number] INP/OBS CARE(HIGH) ABEL BENÍTEZ RESIDENT Nov 10, 2024 12:27 FLYNN PENA MD Nov 13, 2024 23:46
--- NOTE | 2024-11-10 13:20 | DVHPN2 ---
Gordo MENDOZAZAIN MCCAIN is 48 years old male with a PMH of lung tumor, CVA with the right-sided residual deficits, type 2 DM, HLD, dysarthria, chronic nonhealing right foot ulcer presented to the ED after being sent by his Podiatry for surgery tomorrow for nonhealing wound of right foot. Patient had chronic nonhealing foot ulcer on the right lateral side of the foot since March 2024 and has been operated 3 times due to complications, again for past few weeks patient has been again developing pain and drainage, again went to Podiatry and advised him to undergo surgery again. On my assessment patient denies fever, nausea, vomiting, diarrhea, and other associated symptoms Changes from previous H/P or p: No Changes Eyes: No Pain, No Vision change, No Conjunctivae inflammation, No Eyelid inflammation, No Other, No Redness ENT: No Ear pain, No Ear discharge, No Nose pain, No Nose discharge, No Nose congestion, No Mouth pain, No Mouth swelling, No Throat pain, No Throat swelling, No Other Cardiovascular: No Chest Pain, No Palpitations, No Orthopnea, No Paroxysmal Noc. Dyspnea, No Edema, No Lt Headedness, No Other Respiratory: No Cough, No Dry, No Shortness of breath, No SOB with excertion, No Wheezing, No Hemoptysis, No Pleuritic Pain, No Sputum, No Other Gastrointestinal: No Nausea, No Vomiting, No Abdominal Pain, No Diarrhea, No Constipation, No Melena, No Hematochezia, No Other Genitourinary: No Dysuria, No Frequency, No Incontinence, No Hematuria, No Retention, No Other Musculoskeletal: foot pain Skin: No Rash, No Lesions, No Jaundice, No Bruising, No Other Objective Vitals Vital Signs Date Time Temp Pulse Resp B/P (MAP) Pulse Ox O2 Delivery O2 Flow Rate FiO2 11/10/24 09:00 98.1 87 17 115/73 (87) 98 98.1 11/09/24 20:00 Room Air* 0 21 Intake/Output Intake and Output 11/10/24 07:00 Intake Total 1850 ml Output Total 550 ml Balance 1300 ml Intake Oral 1000 ml IV Total 850 ml Output Urine Total 550 ml # Voids 2 # Bowel Movements 2 Exam DERMATOLOGIC EXAM: - Skin is dry and cool to the touch dry bilaterally. - Nails 1-5 of the bilateral foot are thickened, discolored, dystrophic, and tender to palpate with subungual debris - Hair loss noted to bilateral feet Wound #1: Location: Right lateral foot Measurements: Length 1 cm x width 1 cm x depth 0.5 cm. Wound margins: Hyperkeratotic. Wound base: Full thickness. General Appearance: Healthy and bleeding. Probes to Bone: Yes Purulent drainage: Yes Serous drainage: No Erythema: Yes VASCULAR EXAM: - DP and PT pulses are palpable bilaterally. - NAVIGATING OFFICER is brisk to all digits. - Feet are cool to touch compared to lower legs bilaterally. NEUROLOGIC EXAM: - Normal light touch sensation to the superficial peroneal, deep peroneal, sural, saphenous, and tibial nerve branches. - Protective sensation is diminished as tested with a 5.07 10g [place] bilaterally. MUSCULOSKELETAL EXAM: - No gross deformities - Muscle strength is 5/5 and active motion is pain-free and symmetrical bilaterally - No pain or crepitation with passive range of motion bilaterally to all major pedal joints Medications Current Medications Medications Dose Ordered Sig/Fransico Route Start Time Stop Time Status Last Admin Dose Admin Sodium Chloride 1,000 ml @ 75 mls/hr [id number] IV 11/08/24 19:15 11/08/24 23:39 75 MLS/HR Cefepime HCl 50 ml @ 12.5 mls/hr Q8HR IV 11/08/24 22:00 11/10/24 06:17 12.5 MLS/HR Linezolid 300 ml @ 150 mls/hr Q12HR IV 11/08/24 22:00 11/10/24 10:30 150 MLS/HR Pantoprazole Sodium 40 mg DAILY IV 11/09/24 10:00 11/10/24 10:30 40 MG Morphine Sulfate 1 mg Q3HP PRN IV 11/08/24 20:15 11/10/24 00:40 1 MG Diagnostic Test (Pha) 1 strip ACHS 11/08/24 22:00 11/10/24 10:40 1 STRIP Insulin Human Regular ACHS SC 11/08/24 22:00 11/10/24 11:07 3 UNITS Dextrose 50 ml UD PRN IV 11/08/24 20:30 Laboratory Results Laboratory Tests 11/10/24 06:06 Chemistry Test 11/10/24 06:06 Albumin 3.9 g/dL (3.2-4.8) Calcium Level 9.2 mg/dL (8.7-10.4) Total Protein 6.6 g/dL (5.7-8.2) LFT Test 11/10/24 06:06 Alanine Aminotransferase (ALT) 13 U/L (7-40) Alkaline Phosphatase 75 U/L (46-116) Aspartate Amino Transferase (AST) 14 U/L (13-40) Total Bilirubin 0.3 mg/dL (0.2-1.0) Urinalysis Test 11/09/24 00:23 Urine Color Light-yellow (Yellow) Urine Clarity Clear (Clear) Urine pH 5.5 (5.0-9.0) Urine Specific [place] 1.025 (1.001-1.035) Urine Protein Negative (Negative) Urine Ketones Negative (Negative) Urine Blood Negative /uL (Negative) Urine Nitrite Negative (Negative) Urine Bilirubin Negative (Negative) Urine Urobilinogen Normal mg/dL (Negative) Urine Leukocyte Esterase Negative /uL (Negative) Urine RBC 1 /hpf (0 - 3) Urine Microscopic WBC < 1 /HPF (0-3) Urine Squamous Epithelial Cells None seen /hpf (<5) Urine Bacteria None seen /hpf (None Seen) Urine Glucose 4+ mg/dL (Normal) H Microbiology Microbiology Date/Time Source Procedure Growth Status 11/09/24 11:20 Foot Right Gram Stain - Final Resulted 11/09/24 11:20 Foot Right Anaerobic Culture - Preliminary Resulted 11/09/24 11:20 Foot Right Aerobic Culture - Preliminary Resulted Assessment/Plan Assessment/Plan ASSESSMENT: Patient is a 41-year-old male seen in the floor 1 day s/p from a right foot incision and drainage PLAN: - The patients chart was reviewed, clinical findings were discussed with the patient, the etiologies of the conditions were discussed in detail, and a treatment plan was agreed to at this time, with both oral and written instructions provided. - reviewed advanced imaging - discussed plan is to perform an incision and drainage and closure tomorrow - patient will be NPO at midnight - take him to the OR tomorrow -patient will need 3 weeks of p.o. antibiotics - can weightbear as tolerated in postoperative shoe All questions were answered and concerns addressed to the patient's satisfaction. The patient was given the phone number to the clinic and was told how to make contact with the clinic should any concerns or questions arise. Patient understands that if any questions or concerns arise prior to the next appointment, we should be contacted immediately. FOLLOW-UP: Continue to follow while inpatient Plan discussed with: Patient Problem List: (1) Slurred speech (2) Confusion (3) Lethargic (4) Diabetic foot ulcer (5) Uncontrolled diabetes mellitus (6) Osteomyelitis of foot (7) Hemoptysis, unspecified (8) Cavitary lesion of lung (9) Acute kidney injury (10) Open wound of right foot (11) Stroke-like symptoms (12) Cellulitis of right wrist Date of Service: Nov 10, 2024 Billing Provider: MOLLY PALACIOS DPM Common Visit Codes: [id number] INP/OBS CARE(HIGH) MOLLY PALACIOS DPM Nov 10, 2024 13:19
[2024-11-11 01:23] VITALS: BP 131/87; PULSE 84; RESP 17; TEMP 97.5; O2SAT 98
[2024-11-11 05:00] VITALS: BP 143/85; PULSE 86; RESP 17; TEMP 97.8; O2SAT 97
[2024-11-11 06:49] LABS: Basophils # (auto) 0 10 ^3/uL (0-0.2); Basophils % (auto) 0.4 % (0.0-2.0); Eosinophils # (auto) 0.2 10 ^3/uL (0-0.8); Eosinophils % (auto) 3.7 % (0.0-7.0); Hematocrit 40.8 % (41.0-53.0); Hemoglobin 13.7 g/dL (13.5-17.5); Mean Corpuscular Hemoglobin 30.3 pg (28.0-32.0); Mean Corpuscular Hgb Conc. 33.6 g/dL (32.0-36.0); Mean Corpuscular Volume 90.2 fL (80.0-100.0); Monocytes # (auto) 0.4 10 ^3/uL (0-1.3); Monocytes % (auto) 8.3 % (0.0-12.0); Neutrophils # (auto) 3.3 10 ^3/uL (1.6-8.6); Neutrophils % (auto) 66.6 % (37.0-80.0); Platelet Count (auto) 265 10^3/uL (140-450); Red Blood Cells 4.53 10^6/uL (4.5-5.90); Red Cell Distribution Width 13.2 % (11.8-14.3)
[2024-11-11 07:10] LABS: Alanine Aminotransferase 13 U/L (7-40); Albumin 3.9 g/dL (3.2-4.8); Alkaline Phosphatase 78 U/L (46-116); Anion Gap 9 (5-15); BUN/Creatinine Ratio 11.8 (10.0-20.0); Bilirubin, Total 0.6 mg/dL (0.2-1.0); Blood Urea Nitrogen 15 mg/dL (9-23); Calcium 9.2 mg/dL (8.7-10.4); Carbon Dioxide 22 mmol/L (20-31); Chloride 105 mmol/L (98-107); Potassium 3.9 mmol/L (3.5-5.1); Total Protein 6.9 g/dL (5.7-8.2)
[2024-11-11 07:11] LABS: Aspartate Aminotransferase 13 U/L (13-40); Glucose 124 mg/dL (74-106); Sodium 136 mmol/L (136-145)
[2024-11-11 09:00] VITALS: BP 151/83; PULSE 83; RESP 16; TEMP 97.8; O2SAT 98
[2024-11-11] MEDS ORDERED: MIDAZOLAM HCL 2MG/2ML 2ml VIAL (1mg/ml) ONE (12:03)
[2024-11-11] MEDS ORDERED: GLYCOPYRROLATE 0.2 MG/ML 1ML VIAL ONE (12:03)
[2024-11-11] MEDS ORDERED: KETAMINE 50mg/ML 1ml syringe ONE (12:03)
[2024-11-11] MEDS ORDERED: PROPOFOL 10 MG/ML 20 ML IV ONE (12:03)
[2024-11-11] MEDS ORDERED: ONDANSETRON HCL 4 MG/2 ML VIAL ONE (12:03)
--- NOTE | 2024-11-11 12:55 | DVHPN2 ---
Gordo MENDOZAZAIN MCCAIN is 48 years old male with a PMH of lung tumor, CVA with the right-sided residual deficits, type 2 DM, HLD, dysarthria, chronic nonhealing right foot ulcer presented to the ED after being sent by his Podiatry for surgery tomorrow for nonhealing wound of right foot. Patient had chronic nonhealing foot ulcer on the right lateral side of the foot since March 2024 and has been operated 3 times due to complications, again for past few weeks patient has been again developing pain and drainage, again went to Podiatry and advised him to undergo surgery again. On my assessment patient denies fever, nausea, vomiting, diarrhea, and other associated symptoms Changes from previous H/P or p: No Changes Eyes: No Pain, No Vision change, No Conjunctivae inflammation, No Eyelid inflammation, No Other, No Redness ENT: No Ear pain, No Ear discharge, No Nose pain, No Nose discharge, No Nose congestion, No Mouth pain, No Mouth swelling, No Throat pain, No Throat swelling, No Other Cardiovascular: No Chest Pain, No Palpitations, No Orthopnea, No Paroxysmal Noc. Dyspnea, No Edema, No Lt Headedness, No Other Respiratory: No Cough, No Dry, No Shortness of breath, No SOB with excertion, No Wheezing, No Hemoptysis, No Pleuritic Pain, No Sputum, No Other Gastrointestinal: No Nausea, No Vomiting, No Abdominal Pain, No Diarrhea, No Constipation, No Melena, No Hematochezia, No Other Genitourinary: No Dysuria, No Frequency, No Incontinence, No Hematuria, No Retention, No Other Musculoskeletal: foot pain Skin: No Rash, No Lesions, No Jaundice, No Bruising, No Other Objective Vitals Vital Signs Date Time Temp Pulse Resp B/P (MAP) Pulse Ox O2 Delivery O2 Flow Rate FiO2 11/11/24 09:00 97.8 83 16 151/83 (105) 98 97.8 11/11/24 08:00 Room Air* 0 21 Intake/Output Intake and Output 11/11/24 07:00 Intake Total 1983 ml Output Total 1100 ml Balance 883 ml Intake Oral 800 ml IV Total 1183 ml Output Urine Total 1100 ml Exam DERMATOLOGIC EXAM: - Skin is dry and cool to the touch dry bilaterally. - Nails 1-5 of the bilateral foot are thickened, discolored, dystrophic, and tender to palpate with subungual debris - Hair loss noted to bilateral feet Wound #1: Location: Right lateral foot Measurements: Length 1 cm x width 1 cm x depth 0.5 cm. Wound margins: Hyperkeratotic. Wound base: Full thickness. General Appearance: Healthy and bleeding. Probes to Bone: Yes Purulent drainage: Yes Serous drainage: No Erythema: Yes VASCULAR EXAM: - DP and PT pulses are palpable bilaterally. - BIZTALK ADMINISTRATOR is brisk to all digits. - Feet are cool to touch compared to lower legs bilaterally. NEUROLOGIC EXAM: - Normal light touch sensation to the superficial peroneal, deep peroneal, sural, saphenous, and tibial nerve branches. - Protective sensation is diminished as tested with a 5.07 10g [place] bilaterally. MUSCULOSKELETAL EXAM: - No gross deformities - Muscle strength is 5/5 and active motion is pain-free and symmetrical bilaterally - No pain or crepitation with passive range of motion bilaterally to all major pedal joints Medications Current Medications Medications Dose Ordered Sig/Fransico Route Start Time Stop Time Status Last Admin Dose Admin Sodium Chloride 1,000 ml @ 75 mls/hr [id number] IV 11/08/24 19:15 11/10/24 18:42 75 MLS/HR Cefepime HCl 50 ml @ 12.5 mls/hr Q8HR IV 11/08/24 22:00 11/11/24 05:52 12.5 MLS/HR Linezolid 300 ml @ 150 mls/hr Q12HR IV 11/08/24 22:00 11/11/24 10:51 150 MLS/HR Pantoprazole Sodium 40 mg DAILY IV 11/09/24 10:00 11/11/24 10:51 40 MG Morphine Sulfate 1 mg Q3HP PRN IV 11/08/24 20:15 11/11/24 05:55 1 MG Diagnostic Test (Pha) 1 strip ACHS 11/08/24 22:00 11/11/24 11:18 1 STRIP Insulin Human Regular ACHS SC 11/08/24 22:00 11/10/24 11:07 3 UNITS Dextrose 50 ml UD PRN IV 11/08/24 20:30 Laboratory Results Laboratory Tests 11/11/24 06:08 Chemistry Test 11/11/24 06:08 Albumin 3.9 g/dL (3.2-4.8) Calcium Level 9.2 mg/dL (8.7-10.4) Total Protein 6.9 g/dL (5.7-8.2) LFT Test 11/11/24 06:08 Alanine Aminotransferase (ALT) 13 U/L (7-40) Alkaline Phosphatase 78 U/L (46-116) Aspartate Amino Transferase (AST) 13 U/L (13-40) Total Bilirubin 0.6 mg/dL (0.2-1.0) Urinalysis Test 11/09/24 00:23 Urine Color Light-yellow (Yellow) Urine Clarity Clear (Clear) Urine pH 5.5 (5.0-9.0) Urine Specific [place] 1.025 (1.001-1.035) Urine Protein Negative (Negative) Urine Ketones Negative (Negative) Urine Blood Negative /uL (Negative) Urine Nitrite Negative (Negative) Urine Bilirubin Negative (Negative) Urine Urobilinogen Normal mg/dL (Negative) Urine Leukocyte Esterase Negative /uL (Negative) Urine RBC 1 /hpf (0 - 3) Urine Microscopic WBC < 1 /HPF (0-3) Urine Squamous Epithelial Cells None seen /hpf (<5) Urine Bacteria None seen /hpf (None Seen) Urine Glucose 4+ mg/dL (Normal) H Microbiology Microbiology Date/Time Source Procedure Growth Status 11/09/24 11:20 Foot Right Gram Stain - Final Resulted 11/09/24 11:20 Foot Right Anaerobic Culture - Preliminary Resulted 11/09/24 11:20 Foot Right Aerobic Culture - Preliminary Resulted Assessment/Plan Assessment/Plan ASSESSMENT: Patient is a 41-year-old male seen in the floor 2 day s/p from a right foot incision and drainage PLAN: - The patients chart was reviewed, clinical findings were discussed with the patient, the etiologies of the conditions were discussed in detail, and a treatment plan was agreed to at this time, with both oral and written instructions provided. - reviewed advanced imaging - discussed plan is to perform an incision and drainage and closure tomorrow - patient NPO since midnight - take him to the OR today - patient will need 3 weeks of p.o. antibiotics - can weightbear as tolerated in postoperative shoe All questions were answered and concerns addressed to the patient's satisfaction. The patient was given the phone number to the clinic and was told how to make contact with the clinic should any concerns or questions arise. Patient understands that if any questions or concerns arise prior to the next appointment, we should be contacted immediately. FOLLOW-UP: Continue to follow while inpatient Plan discussed with: Patient My Orders Orders - MOLLY PALACIOS DPM Procedure Category Date Status Time Npo After Midnight ORDERS 11/10/24 Transmitted Npo (Nothing By DIET 11/11/24 Transmitted Mouth) Diet Breakfast Obtain Consent For: ORDERS 11/10/24 Transmitted 13:21 Problem List: (1) Slurred speech (2) Confusion (3) Lethargic (4) Diabetic foot ulcer (5) Uncontrolled diabetes mellitus (6) Osteomyelitis of foot (7) Hemoptysis, unspecified (8) Cavitary lesion of lung (9) Acute kidney injury (10) Open wound of right foot (11) Stroke-like symptoms (12) Cellulitis of right wrist Date of Service: Nov 11, 2024 Billing Provider: MOLLY PALACIOS DPM Common Visit Codes: [id number] INP/OBS CARE(HIGH) MOLLY PALACIOS DPM Nov 11, 2024 12:55
[2024-11-11 13:00] VITALS: BP 146/83; PULSE 86; RESP 18; TEMP 98.1; O2SAT 99
[2024-11-11] MEDS: BUPIVACAINE HCL 0.25% P/F 10 ML VIAL ONE (13:33)
[2024-11-11 13:42] VITALS: PULSE 80; RESP 12; TEMP 98.4; O2SAT 100
--- NOTE | 2024-11-11 13:54 | DVHOP2 ---
Operative Report - 2 Report Details Date: 11/11/24 Preop Diagnosis: 1. Right foot osteomyelitis 2. Right foot abscess 3. Right foot cellulitis 4. Right foot diabetic ulcer Postop Diagnosis: Same as preop Surgeon: Molly Palacios MD Anesthesiologist: See anesthesia Anesthesia: Mac Consent: The patient was informed of the risks and benefits of the procedure. These include but are not limited to complications of anesthesia, postoperative infection, incomplete relief of symptoms, recurrence of symptoms, damage to blood vessels, nerves and tendons, deep venous thrombosis, pulmonary embolism and possible need for repeat surgery in the future. Complications: None Estimated Blood Loss: Minimal Fluids: See anesthesia Findings: Consistent with the diagnosis Indications for Surgery: Worsening right foot wound Name of Procedure Performed 1. Right foot I&D (61683) 2. Right foot delayed closure (45482) Procedure Details Procedure Details: PRE-PROCEDURE INFORMATION: In the pre-op holding area, the extremity to be operated on was clearly marked and the patient verified correct laterality of the marking. The patient was transferred to the OR table and placed in a supine position. A timeout was performed in which identification of the correct patient, procedure, location, and materials was done. The right foot and leg were prepped and draped in normal sterile fashion. DESCRIPTION OF PROCEDURE: Attention was directed to the right where area of fluctuance was noted. An incision was made over this area and was deepened through blunt dissection. The incision was deepened to the level of abscess and bone. Care was taken to the dissection to avoid any neurovascular and tendinous structures. The incision was deepened to the bone, and the abscess appeared to be purulent fluid consistent with pus. The cortices of the bone was then removed with Sergio an all necrotic tissue. After the abscess was drained, the area was irrigated with 3 L normal saline using cysto tubing. A delayed closure was then performed with 2-0 Nylon. POSTOPERATIVE INFORMATION: The patient tolerated the above noted procedure and anesthesia well and was transferred to the PACU with vital signs stable, and vascular status intact with capillary refill intact to all digits. Patient will return to the floor with IV abx. Patient can be discharged home with 2 weeks PO antibiotics. Patient can WBAT with a post op shoe. Specimen: Right 5th metatarsal Condition Good Disposition Still a Patient MOLLY PALACIOS [facility] Nov 11, 2024 13:54
[2024-11-11 14:12] VITALS: BP 154/78; PULSE 82; RESP 16; O2SAT 96
[2024-11-11] MEDS ORDERED: AUG875T PO (14:42)
[2024-11-11] MEDS ORDERED: LINE1TAB6 PO (14:42)
--- NOTE | 2024-11-11 15:00 | DVHDSRES ---
Discharge Summary Date of Admission Resident Creating Document: ABEL BENÍTEZ RESIDENT Nov 08, 2024 at 18:45 Date of Discharge: Nov 11, 2024 Admitting Diagnosis # Chronic nonhealing diabetic foot ulcer, right-sided # Right foot cellulitis & osteomyelitis # Right foot abscess Labs/Diagnostic Data: Laboratory Results Test 11/11/24 11:15 11/11/24 06:08 11/09/24 00:23 11/08/24 21:30 POC Glucose 132 mg/dl (70-106) White Blood Count 5.0 10^3/uL (4.4-10.8) Red Blood Count 4.53 10^6/uL (4.5-5.90) Hemoglobin 13.7 g/dL (13.5-17.5) Hematocrit 40.8 % (41.0-53.0) Mean Corpuscular Volume 90.2 fL (80.0-100.0) Mean Corpuscular Hemoglobin 30.3 pg (28.0-32.0) Mean Corpuscular Hemoglobin Concent 33.6 g/dL (32.0-36.0) Red Cell Distribution Width 13.2 % (11.8-14.3) Platelet Count 265 10^3/uL (140-450) Mean Platelet Volume 7.2 fL (6.9-10.8) Neutrophils (%) (Auto) 66.6 % (37.0-80.0) Lymphocytes (%) (Auto) 21.0 % (10.0-50.0) Monocytes (%) (Auto) 8.3 % (0.0-12.0) Eosinophils (%) (Auto) 3.7 % (0.0-7.0) Basophils (%) (Auto) 0.4 % (0.0-2.0) Neutrophils # (Auto) 3.3 10 ^3/uL (1.6-8.6) Lymphocytes # (Auto) 1.0 10 ^3/uL (0.4-5.4) Monocytes # (Auto) 0.4 10 ^3/uL (0-1.3) Eosinophils # (Auto) 0.2 10 ^3/uL (0-0.8) Basophils # (Auto) 0 10 ^3/uL (0-0.2) Nucleated Red Blood Cells 0.0 % Sodium Level 136 mmol/L (136-145) Potassium Level 3.9 mmol/L (3.5-5.1) Chloride Level 105 mmol/L (98-107) Carbon Dioxide Level 22 mmol/L (20-31) Anion Gap 9 (5-15) Blood Urea Nitrogen 15 mg/dL (9-23) Creatinine 1.27 mg/dL (0.700-1.30) Glomerular Filtration Rate Calc 70 mL/min (>90) BUN/Creatinine Ratio 11.8 (10.0-20.0) Serum Glucose 124 mg/dL (74-106) Calcium Level 9.2 mg/dL (8.7-10.4) Total Bilirubin 0.6 mg/dL (0.2-1.0) Aspartate Amino Transferase (AST) 13 U/L (13-40) Alanine Aminotransferase (ALT) 13 U/L (7-40) Alkaline Phosphatase 78 U/L (46-116) Total Protein 6.9 g/dL (5.7-8.2) Albumin 3.9 g/dL (3.2-4.8) Urine Color Light-yellow (Yellow) Urine Clarity Clear (Clear) Urine pH 5.5 (5.0-9.0) Urine Specific [place] 1.025 (1.001-1.035) Urine Protein Negative (Negative) Urine Ketones Negative (Negative) Urine Blood Negative /uL (Negative) Urine Nitrite Negative (Negative) Urine Bilirubin Negative (Negative) Urine Urobilinogen Normal mg/dL (Negative) Urine Leukocyte Esterase Negative /uL (Negative) Urine RBC 1 /hpf (0 - 3) Urine Microscopic WBC < 1 /HPF (0-3) Urine Squamous Epithelial Cells None seen /hpf (<5) Urine Bacteria None seen /hpf (None Seen) Urine Glucose 4+ mg/dL (Normal) Prothrombin Time 10.1 sec (9.3-11.8) Prothrombin Time INR 0.95 (0.9-1.15) Activated Partial Thromboplast Time 32.9 SEC (24.5-34.5) Hemoglobin A1c 8.9 % A1C (<5.7) Lactic Acid Level 1.1 mmol/L (0.4-2.0) Magnesium Level 2.1 mg/dL (1.6-2.6) B-Type Natriuretic Peptide 6.80 pg/mL (0-100) Thyroid Stimulating Hormone (TSH) 0.85 uIU/mL (0.55-4.78) Plasma/Serum Blood Alcohol < 3.0 mg/dL (<10) Test 11/08/24 00:23 Urine Opiates Screen Neg (NEGATIVE) Urine Fentanyl Screen Neg (NEGATIVE) Urine Barbiturates Screen Neg (NEGATIVE) Urine Phencyclidine Screen Neg (NEGATIVE) Urine Amphetamines Screen Neg (NEGATIVE) Urine Benzodiazepines Screen Neg (NEGATIVE) Urine Cocaine Screen Neg (NEGATIVE) Urine Cannabinoids Screen Neg (NEGATIVE) Other Laboratory Tests 11/11/24 06:08 Brief Hx & Hospital Course: ZAIN MENDOZA is 48 years old male with a PMH of lung tumor, CVA with the right-sided residual deficits, type 2 DM, HLD, dysarthria, chronic nonhealing right foot ulcer presented to the ED after being sent by his Podiatry for surgery tomorrow for nonhealing wound of right foot. Patient had chronic nonhealing foot ulcer on the right lateral side of the foot since March 2024 and has been operated 3 times due to complications, again for past few weeks patient has been again developing pain and drainage, again went to Podiatry and advised him to undergo surgery again. On my assessment patient denies fever, nausea, vomiting, diarrhea, and other associated symptoms. Patient required hospital admission for further evaluation management of osteomyelitis left foot. Podiatry senior financial consultant evaluated the patient, performed right foot I and D with bone biopsy on 11/09/24 and closure on 11/11/24. Patient was on Zyvox and cefepime. Ordered wound cultures. Patient was in hyperglycemia, continuously monitored blood glucose with Accu-Cheks and insulin sliding scale. Due to FENG patient was on IVF and continuously monitored lab. Continuously monitored lab on blood pressure. Patient condition was improved, stable to discharge home with the p.o. antibiotics ( Zyvox and Amoxil) for 2 weeks. Patient will advised to follow up with Podiatry after 2 weeks for the wound care and further management. Patient was advised about healthy lifestyle modifications including diet, exercise. Pt is lying on bed General Appearance: Alert, Oriented X3, Cooperative, Not in acute distress HEENT: Atraumatic, Mucous membranes moist/pink Respiratory: Clear to auscultation, Normal air movement, No added sounds Cardiovascular: Regular rate, Normal S1, Normal S2, No murmurs Abdominal: Active bowel sounds, Soft, no distention, no tenderness Extremities: Left lateral foot wound wrapped with surgical dressing. Neuro: Normal speech, sensorimotor deficits none Psych/Mental Status: Mental status NL, Mood NL Nurse was there as sharperone during examination Operations or Procedures Report Details Date: 11/09/24 Preop Diagnosis: 1. Right foot osteomyelitis 2. Right foot abscess 3. Right foot cellulitis 4. Right foot diabetic ulcer Postop Diagnosis: Same as preop Surgeon: Say Gonzalez MD Anesthesiologist: See anesthesia Anesthesia: Mac Consent: The patient was informed of the risks and benefits of the procedure. These include but are not limited to complications of anesthesia, postoperative infection, incomplete relief of symptoms, recurrence of symptoms, damage to blood vessels, nerves and tendons, deep venous thrombosis, pulmonary embolism and possible need for repeat surgery in the future. Complications: None Estimated Blood Loss: Minimal Fluids: See anesthesia Findings: Consistent with diagnosis Indications for Surgery: Worsening right foot wound Name of Procedure Performed 1. Right foot I&D (38128) 2. Right foot bone biopsy () -------- Report Details Date: 11/11/24 Preop Diagnosis: 1. Right foot osteomyelitis 2. Right foot abscess 3. Right foot cellulitis 4. Right foot diabetic ulcer Postop Diagnosis: Same as preop Surgeon: Say Gonzalez MD Anesthesiologist: See anesthesia Anesthesia: Mac Consent: The patient was informed of the risks and benefits of the procedure. These include but are not limited to complications of anesthesia, postoperative infection, incomplete relief of symptoms, recurrence of symptoms, damage to blood vessels, nerves and tendons, deep venous thrombosis, pulmonary embolism and possible need for repeat surgery in the future. Complications: None Estimated Blood Loss: Minimal Fluids: See anesthesia Findings: Consistent with the diagnosis Indications for Surgery: Worsening right foot wound Name of Procedure Performed 1. Right foot I&D (58055) 2. Right foot delayed closure (21645) Procedure Details Procedure Details: PRE-PROCEDURE INFORMATION: In the pre-op holding area, the extremity to be operated on was clearly marked and the patient verified correct laterality of the marking. The patient was transferred to the OR table and placed in a supine position. A timeout was performed in which identification of the correct patient, procedure, location, and materials was done. The right foot and leg were prepped and draped in normal sterile fashion. DESCRIPTION OF PROCEDURE: Attention was directed to the right where area of fluctuance was noted. An incision was made over this area and was deepened through blunt dissection. The incision was deepened to the level of abscess and bone. Care was taken to the dissection to avoid any neurovascular and tendinous structures. The incision was deepened to the bone, and the abscess appeared to be purulent fluid consistent with pus. The cortices of the bone was then removed with Sergio an all necrotic tissue. After the abscess was drained, the area was irrigated with 3 L normal saline using cysto tubing. A delayed closure was then performed with 2-0 Nylon. POSTOPERATIVE INFORMATION: The patient tolerated the above noted procedure and anesthesia well and was transferred to the PACU with vital signs stable, and vascular status intact with capillary refill intact to all digits. Patient will return to the floor with IV abx. Patient can be discharged home with 2 weeks PO antibiotics. Patient can WBAT with a post op shoe. Specimen: Right 5th metatarsal Procedure Details Procedure Details: PRE-PROCEDURE INFORMATION: In the pre-op holding area, the extremity to be operated on was clearly marked and the patient verified correct laterality of the marking. The patient was transferred to the OR table and placed in a supine position. A timeout was performed in which identification of the correct patient, procedure, location, and materials was done. The right foot and leg were prepped and draped in normal sterile fashion. DESCRIPTION OF PROCEDURE: Attention was directed to the right where area of fluctuance was noted. An incision was made over this area and was deepened through blunt dissection. The incision was deepened to the level of abscess and bone. Care was taken to the dissection to avoid any neurovascular and tendinous structures. The incision was deepened to the bone, and the abscess appeared to be purulent fluid consistent with pus. The cortices of the bone was then removed with Sergio an all necrotic tissue. After the abscess was drained, the area was irrigated with 3 L normal saline using cysto tubing. Deep cultures were then obtained from the wound. The area was then inspected and any areas of tracking, especially along the tendons were also drained. The wound was packed with Betadine-soaked gauze and we will need to be closed at a later date. POSTOPERATIVE INFORMATION: The patient tolerated the above noted procedure and anesthesia well and was transferred to the PACU with vital signs stable, and vascular status intact with capillary refill intact to all digits. Deep cultures were taken. Patient will return to the OR on Thursday for another repeat I&D in hospital closure. Continue IV antibiotics. Patient can weightbear as tolerated with a postoperative shoe. Specimen: Right 5th metatarsal Condition at Discharge: Good Final Diagnosis/Problems List # Chronic nonhealing diabetic foot ulcer, right-sided # Right foot cellulitis & osteomyelitis # Right foot abscess # uncontrolled type 2 DM # FENG likely VMN on CKD Discharge Disposition: Home Discharge Instruct/Medications Diet: Consistent carbohydrate Activity: No Restrictions, As Tolerated Follow Up/Referral: PCP Podiatry within 2 weeks Medications: Zyvox PO BID 2 weeks Augmentin PO BID 2 weeks Discharge Statement: "Patient was advised to return to the ER or call 911 if any headaches, dizziness, shortness of breath, chest pain, abdominal pain, bleeding, fevers, or worsening of medical condition. Patient was counseled about treatment plan, medications, possible side effects, patientverbalized understanding. All questions were answered to the best of my ability. This discharge took greater then 30 minutes in planning, reviewing documentation, counseling the patient, and discussing with other team members." ASSESSMENT ASSESSMENT Assessment Left leg osteomyelitis Left leg cellulitis Date of Service: Nov 11, 2024 Billing Provider: FLYNN PENA MD Common Visit Codes: 10622-ZLU/OBS DISCH DAY >30min ABEL BENÍTEZ Nov 11, 2024 15:00 FLYNN PENA MD Nov 14, 2024 00:25
[2024-11-11] MEDS: VANCOMYCIN HCL 1000 MG VL ONE (15:56)
== END 2024-11-11 17:17 | disposition home or self-care (01) | DRG 344 ==
LOC: UNDOADMIN 18:23 → TELE-EAST 18:23 → EAST 18:45
PROVIDERS: ADMIT Internal Medicine; ATTEND Internal Medicine
PROC: 0Y9M0ZX Drainage of Right Foot, Open Approach, Diagnostic (ICD-10-PCS; 2024-11-09)
PROC: 0Y9M0ZX Drainage of Right Foot, Open Approach, Diagnostic (ICD-10-PCS; principal; 2024-11-11 13:24)
DX: E11.69 Type 2 diabetes mellitus with other specified complication (principal); M86.9 Osteomyelitis, unspecified; N17.0 Acute kidney failure with tubular necrosis; L03.115 Cellulitis of right lower limb; E11.22 Type 2 diabetes mellitus with diabetic chronic kidney disease; E11.621 Type 2 diabetes mellitus with foot ulcer; L97.518 Non-pressure chronic ulcer of other part of right foot with other specified severity; L02.611 Cutaneous abscess of right foot; E11.65 Type 2 diabetes mellitus with hyperglycemia; E78.5 Hyperlipidemia, unspecified; Z80.1 Family history of malignant neoplasm of trachea, bronchus and lung; Z86.73 Personal history of transient ischemic attack (TIA), and cerebral infarction without residual deficits; Z83.3 Family history of diabetes mellitus; N18.9 Chronic kidney disease, unspecified
CPT/HCPCS: 36415; 71045; 80053; 80307; 80320; 81001; 82962; 83036; 83605; 83735; 83880; 84443; 85025; 85610; 85730; 87070; 87075; 87077; 87186; 87205; G0378; J1815; J2003; J2250; J2405; J2470; J2704; J3490